=== PATIENT | female | born 1965 | race Caucasian/White ===

== ENCOUNTER 2020-05-18 20:58 | Emergency (ER) | payer MEDICARE, OTHER, SELFPAY ==
[2020-05-18 21:07] VITALS: BP 148/54; PULSE 67; RESP 17; TEMP 36.8; O2SAT 97; BMI 28.3
--- NOTE | 2020-05-18 21:14 | CTR_ITS ---
PROCEDURE INFORMATION: Exam: CT Head Without Contrast Exam date and time: 05/18/2020 9:19 PM Age: 54 years old Clinical indication: Injury or trauma; Injury history: Hit by horse; Initial encounter; Blunt trauma (contusions or hematomas); Additional info: Head injury TECHNIQUE: Imaging protocol: Computed tomography of the head without contrast. Radiation optimization: All CT scans at this facility use at least one of these dose optimization techniques: automated exposure control; mA and/or kV adjustment per patient size (includes targeted exams where dose is matched to clinical indication); or iterative reconstruction. COMPARISON: No relevant prior studies available. RADIATION DOSE METRICS: Total DLP (mGy-cm): 8246.46 FINDINGS: Brain: No visible acute intracranial pathologic process, trauma, or hemorrhage. No visible generalized edema. Unremarkable white matter. No mass effect. Ventricles: Normal. No ventriculomegaly. Bones/joints: Unremarkable. No acute fracture. Sinuses: Visualized sinuses are unremarkable. No fluid levels. Mastoid air cells: Visualized mastoid air cells are well aerated. Soft tissues: Unremarkable. CT/CT head wo con* [id number] IMPRESSION: No acute intracranial abnormality. Radiation Dose CTDIVOL = (mGy): DLP = 8246.46 (mGy-cm)
--- NOTE | 2020-05-18 21:17 | W.ED.HEATRA ---
HPI - Head Injury General: Chief complaint: Head Injury Stated complaint: hit in head Time Seen by Provider: 05/18/20 21:05 Source: patient Mode of arrival: ambulatory Limitations: no limitations History of Present Illness: HPI Narrative: 54-year-old female who presents after being kicked in the head. Patient states she is leaning her head against a panel in her horse spooked and actually kicked the panel and that struck her in the head. States this happened roughly an hour ago. She denies any loss conscious but does have a severe headache. Patient denies any pain elsewhere. Denies any neck pain. Denies any vomiting. She rates her pain a 8 out of 10. MD Complaint: head injury Onset (ago): hour(s) Associated symptoms: Deny nausea, neck pain or vomiting Review of Systems Const: Denies: fever(s), chills, body aches or change in appetite Eyes: Denies: blurry vision or eye discomfort ENMT: Denies: throat pain or dental pain Card: Denies: chest pain Resp: Denies: dyspnea GI: Denies: abdominal pain, nausea, vomiting or diarrhea : Denies: dysuria Musc: Denies: neck pain or back pain Skin/Breast: Denies: rash Neuro: Reports: headache(s) Psych: Denies: depression [place]/Lymph: Denies: easy bruising All/Imm: Denies: urticaria Physical Exam Const: COMMON NORMALS: no acute distress, patient oriented x3 and healthy appearing HENMT: COMMON NORMALS: normocephalic HEAD & SCALP: normocephalic OTHER: contusion to forehead Eye: COMMON NORMALS: Equal, round and reactive pupils present and EOMs intact bilaterally PUPIL: Yes Equal, round and reactive pupils present Neck/C-Spine: COMMON NORMALS: full ROM and supple Chest: COMMONS NORMALS: normal inspection of the chest and normal palpation of entire chest wall Resp: COMMON NORMALS: normal respiratory effort, No retractions, No use of accessory muscles and clear to auscultation bilaterally AUSCULTATION: clear to auscultation bilaterally Cardio: COMMON NORMALS: regular rate, regular rhythm and No murmurs present (Cardio) RATE: regular rate RHYTHM: regular rhythm GI: COMMON NORMALS: Normal to inspection, nondistended, normoactive bowel sounds present, Soft to palpation, non-tender and no masses PALPATION: Yes Soft to palpation Extremity: COMMON NORMALS: normal to inspection and full ROM Neuro: COMMON NORMALS: patient oriented x3, moves all extremities and no focal motor deficits Psych: COMMON NORMALS: mental status grossly normal, Normal thought process present and cooperative THOUGHT PROCESS: Normal thought process present Skin: COMMON NORMALS: no rashes or lesions noted and no wounds GENERAL SKIN EXAM: no rashes or lesions noted Course Vital Signs: Vital signs: Vital Signs Temperature 98.3 F 05/18/20 21:07 Pulse Rate 67 05/18/20 21:07 Respiratory Rate 17 05/18/20 21:07 Blood Pressure 148/54 05/18/20 21:07 Pulse Oximetry 97 05/18/20 21:07 MDM - Head Injury MDM Narrative: Medical decision making narrative: Patient presents with a closed head injury. Patient is well-appearing here and head CT and C-spine CT are negative. Patient is stable for discharge. She is to follow-up with primary care doctor in 3 to 5 days and return if worsening. Imaging Data^: CT Head: Radiologist's impression: [address] [address] [address] Scan Report Signed Patient: Olga Lidia Villagomez Unit #: [id number] : 1965 Age/Sex: 54 / F ADM Date: 05/18/20 Loc: ER Room/Bed: Attending Dr: Ordering Provider/Ordering MD: Philomena Smith MD Date of Service: 05/18/20 Procedure(s): CT head wo con* [id number] Accession Number(s): [id number] Report Number: [id number] PROCEDURE INFORMATION: Exam: CT Head Without Contrast Exam date and time: 05/18/2020 9:19 PM Age: 54 years old Clinical indication: Injury or trauma; Injury history: Hit by horse; Initial encounter; Blunt trauma (contusions or hematomas); Additional info: Head injury TECHNIQUE: Imaging protocol: Computed tomography of the head without contrast. Radiation optimization: All CT scans at this facility use at least one of these dose optimization techniques: automated exposure control; mA and/or kV adjustment per patient size (includes targeted exams where dose is matched to clinical indication); or iterative reconstruction. COMPARISON: No relevant prior studies available. RADIATION DOSE METRICS: Total DLP (mGy-cm): 8246.46 FINDINGS: Brain: No visible acute intracranial pathologic process, trauma, or hemorrhage. No visible generalized edema. Unremarkable white matter. No mass effect. Ventricles: Normal. No ventriculomegaly. Bones/joints: Unremarkable. No acute fracture. Sinuses: Visualized sinuses are unremarkable. No fluid levels. Mastoid air cells: Visualized mastoid air cells are well aerated. Soft tissues: Unremarkable. CT/CT head wo con* [id number] IMPRESSION: No acute intracranial abnormality. Other CT: Radiologist's impression: [address] [place] [address] CT Scan Report Signed Patient: Olga Lidia Villagomez Unit #: [id number] : 1965 Age/Sex: 54 / F ADM Date: 05/18/20 Loc: ER Room/Bed: Attending Dr: Ordering Provider/Ordering MD: Philomena Smith MD Date of Service: 05/18/20 Procedure(s): CT cervical spin wo con* [id number] Accession Number(s): [id number] Report Number: [id number] PROCEDURE INFORMATION: Exam: CT Cervical Spine Without Contrast Exam date and time: 05/18/2020 10:00 PM Age: 54 years old Clinical indication: Injury or trauma; Injury history: Hit by horse; Additional info: Neck pain TECHNIQUE: Imaging protocol: Computed tomography images of the cervical spine without contrast. Radiation optimization: All CT scans at this facility use at least one of these dose optimization techniques: automated exposure control; mA and/or kV adjustment per patient size (includes targeted exams where dose is matched to clinical indication); or iterative reconstruction. COMPARISON: No relevant prior studies available. RADIATION DOSE METRICS: Total DLP (mGy-cm): 807.09 FINDINGS: Vertebrae: No visible fracture, subluxation, or dislocation. Mild reversal normal cervical lordosis. Discs/Spinal canal/Neural foramina: Mild degenerative disc disease with mild disc space height loss and associated mild spondylosis deformans C5/C6 and C6/C7. Right neural foraminal narrowing C5/C6 secondary to a right paramedian focal annular disc bulge osteophyte complex. Soft tissues: Unremarkable. Dental: Incidental note of numerous missing teeth. Dental caries. Lungs: Mild centrilobular emphysema. CT/CT cervical spin wo con* [id number] IMPRESSION: No visible fracture, subluxation, or dislocation. Discharge Plan Discharge Patient Disposition: Home Clinical Impression: Closed head injury Qualifiers: Encounter type: initial encounter Qualified Code(s): S09.90XA - Unspecified injury of head, initial encounter Condition: Stable Prescriptions: New Naprosyn 500 mg tablet 500 mg PO BID PRN (Reason: pain) Qty: 20 RF: 0 No Action Advair HFA See Rx Instructions .ROUTE .COMPLEX RF: 0 prazosin 1 mg capsule 1 mg PO BEDTIME RF: 0 buspirone 30 mg tablet 30 mg PO DAILY RF: 0 trazodone 300 mg tablet 300 mg PO BEDTIME RF: 0 ProAir HFA 90 mcg/actuation Hfa Aerosol Inhaler See Rx Instructions .ROUTE .COMPLEX RF: 0 Keppra See Rx Instructions .ROUTE .COMPLEX RF: 0 Symbicort See Rx Instructions .ROUTE .COMPLEX RF: 0 sertraline See Rx Instructions .ROUTE .COMPLEX RF: 0 tizanidine See Rx Instructions .ROUTE .COMPLEX RF: 0 Discharge Orders: Discharge Order (Routine); Ordered 05/18/20 Ordered By: Philomena Smith Discharge Diet: Advance as tolerated Discharge Activity: Resume usual activity Patient Instructions: Minor Head Injury (ED) Coding Level of Care Code ED Medical Records Coordinator for Salvador Hanna Exam Comprehensive
[2020-05-18] MEDS: HYDROcodone-acetaminophen 7.5-325 mg Tablet 1 TAB PO (21:26)
--- NOTE | 2020-05-18 22:00 | CTR_ITS ---
PROCEDURE INFORMATION: Exam: CT Cervical Spine Without Contrast Exam date and time: 05/18/2020 10:00 PM Age: 54 years old Clinical indication: Injury or trauma; Injury history: Hit by horse; Additional info: Neck pain TECHNIQUE: Imaging protocol: Computed tomography images of the cervical spine without contrast. Radiation optimization: All CT scans at this facility use at least one of these dose optimization techniques: automated exposure control; mA and/or kV adjustment per patient size (includes targeted exams where dose is matched to clinical indication); or iterative reconstruction. COMPARISON: No relevant prior studies available. RADIATION DOSE METRICS: Total DLP (mGy-cm): 807.09 FINDINGS: Vertebrae: No visible fracture, subluxation, or dislocation. Mild reversal normal cervical lordosis. Discs/Spinal canal/Neural foramina: Mild degenerative disc disease with mild disc space height loss and associated mild spondylosis deformans C5/C6 and C6/C7. Right neural foraminal narrowing C5/C6 secondary to a right paramedian focal annular disc bulge osteophyte complex. Soft tissues: Unremarkable. Dental: Incidental note of numerous missing teeth. Dental caries. Lungs: Mild centrilobular emphysema. CT/CT cervical spin wo con* [id number] IMPRESSION: No visible fracture, subluxation, or dislocation. Radiation Dose CTDIVOL = (mGy): DLP = 807.09 (mGy-cm)
[2020-05-18 22:32] VITALS: BP 109/72; PULSE 61; RESP 16; O2SAT 97
== END 2020-05-18 22:44 | disposition home or self-care (01) ==
PROVIDERS: Emergency Provider Emergency Medicine
DX: S09.8XXA Other specified injuries of head, initial encounter (principal); W55.12XA Struck by horse, initial encounter
CPT/HCPCS: 12345; 70450; 72125; 99281; 99283

== ENCOUNTER → 2020-05-24 07:49 | Outpatient (BNVA) | payer MEDICARE, OTHER, SELFPAY | PROVIDERS: Visit Provider Specialist | DX: G40.209 Localization-related (focal) (partial) symptomatic epilepsy and epileptic syndromes with complex partial seizures, not intractable, without status epilepticus (principal); G43.711 Chronic migraine without aura, intractable, with status migrainosus; F43.10 Post-traumatic stress disorder, unspecified; F17.210 Nicotine dependence, cigarettes, uncomplicated | CPT/HCPCS: 99204 ==

== ENCOUNTER 2020-06-08 10:02 | Outpatient (CLI) | payer MEDICARE, OTHER, SELFPAY ==
--- NOTE | 2020-06-08 11:00 | CT_ITS ---
WS: [id number] CT CHEST WITHOUT INTRAVENOUS CONTRAST HISTORY: Multiple lung nodules in her previous scans TECHNIQUE: Contiguous 5 mm axial imaging performed on the thorax. Coronal and sagittal reformats are submitted. All CT scans at [facility] use at least one of these dose optimization techniq ues: automated exposure control; mA and/or kV adjustment per patient size (includes targeted exams wh ere dose is matched to clinical indication); or iterative reconstruction. CONTRAST: None DLP: 789.05 mGycm COMPARISON: None available. Lungs and central airway: Chronic emphysema with mild haziness and interstitial thickening bilaterall y with benign granulomata. Dependent changes posteriorly at the lung bases. Poor inspiration resultin g in crowding of the lungs. Pleural-based 5 mm nodule LEFT lower lobe. Smaller pleural-based nodule i n the RIGHT middle lobe measures 3 mm. Additional 4 mm nodule RIGHT middle lobe, image 19 of series 3 . Pleura: Normal. No pleural effusion. Heart and pericardium: Mild cardiomegaly with no pericardial effusion. Mediastinum and joel: No mediastinum or hilar adenopathy. Vessels: Normal size aortic and pulmonary artery. No coronary artery calcifications. Chest wall and lower neck: No soft tissue masses. Upper abdomen: Prior cholecystectomy. Osseous structures: No destructive process. CT/CT chest wo con [id number] IMPRESSION: 1. Bilateral pulmonary nodules as above. Recommend [address] follow-up . 2. Moderate chronic emphysema. 3. Prior cholecystectomy.
== END 2020-06-08 10:03 | disposition home or self-care (01) ==
LOC: RADWPI 10:07
PROVIDERS: PCP Physician Assistant; Visit Provider Internal Medicine Pulmonary Disease
DX: J44.9 Chronic obstructive pulmonary disease, unspecified (principal); R91.8 Other nonspecific abnormal finding of lung field
CPT/HCPCS: 71250

== ENCOUNTER → 2020-06-10 11:03 | Outpatient (BNVA) | payer MEDICARE, OTHER, SELFPAY | PROVIDERS: PCP Physician Assistant; Visit Provider Internal Medicine | DX: M25.50 Pain in unspecified joint (principal); Z79.899 Other long term (current) drug therapy; Z11.59 Encounter for screening for other viral diseases; Z11.1 Encounter for screening for respiratory tuberculosis; R76.8 Other specified abnormal immunological findings in serum; R53.83 Other fatigue; F17.210 Nicotine dependence, cigarettes, uncomplicated | CPT/HCPCS: 99204 ==

== ENCOUNTER 2020-06-10 13:08 | Outpatient (CLI) | payer MEDICARE, OTHER, SELFPAY ==
--- NOTE | 2020-06-10 13:13 | XR_ITS ---
WS: [id number] LEFT HAND: 2 VIEW(S) TECHNIQUE: PA and lateral. HISTORY: hand pain COMPARISON: None available. No acute fracture or dislocation. Very mild interphalangeal joint space narrowing. Possible small ear ly erosion at the third PIP joint.No metacarpal head erosions. No soft tissue abnormality. XR/XR hand LT 2V [id number] IMPRESSION: Possible small early erosion third PIP joint. Otherwise negative.
--- NOTE | 2020-06-10 13:13 | XR_ITS ---
WS: [id number] RIGHT HAND: 2 VIEW(S) TECHNIQUE: PA and lateral. HISTORY: hand pain COMPARISON: None available. Minimal interphalangeal joint space narrowing. Small subchondral cystic changes or erosions at the fo urth DIP joint. No metacarpal head erosion. No soft tissue abnormality. XR/XR hand RT 2V [id number] IMPRESSION: Small subchondral cystic changes at the fourth DIP joint.
== END 2020-06-10 13:09 | disposition home or self-care (01) ==
LOC: WPI 13:13
PROVIDERS: PCP Physician Assistant; Visit Provider Internal Medicine
DX: M79.641 Pain in right hand (principal); M79.642 Pain in left hand
CPT/HCPCS: 73120

== ENCOUNTER 2020-06-22 10:43 | Outpatient (CLI) | payer MEDICARE, OTHER, SELFPAY ==
[2020-06-22 11:28] LABS: Basophils # 0.1 10^3/uL (0.0-0.1); Basophils % 1.3 %; Eosinophils # 0.1 10^3/uL (0.0-0.8); Eosinophils % 1.4 %; Hematocrit 44.4 % (37.0-47.0); Hemoglobin 14.7 g/dL (11.5-15.3); Lymphocytes # 1.8 10^3/uL (0.8-4.8); Lymphocytes % 28.1 %; Mean Corpuscular HGB Conc 33.1 g/dL (30.0-36.0); Mean Corpuscular Hemoglobin 30.9 pg (28.0-34.0); Mean Corpuscular Volume 93.3 fL (81-99); Mean Platelet Volume 12.8 fL (7.4-10.4); Monocytes # 0.3 10^3/uL (0.2-0.9); Neutrophils # 4.01 10^3/uL (1.8-7.7); Nucleated Red Blood Cells % 0 %; Platelet Count 126 10^3/cmm (130-400); Red Blood Count 4.76 10^6/uL (4.1-5.3); Red Cell Distribution Width 12.4 % (12.1-15.1); White Blood Count 6.3 10^3/uL (4.0-10.0)
[2020-06-22 11:52] LABS: Alanine Aminotransferase 6 U/L (0-33); Albumin Level 4.2 g/dL (3.5-5.2); Alkaline Phosphatase 98 IU/L (35-105); Anion Gap 15.2 (5-19); Aspartate Amino Transferase 9 U/L (0-32); Blood Urea Nitrogen 8 mg/dL (6-20); C Reactive Protein 3.9 mg/L (0.0-4.9); Calcium 9.1 mg/dL (8.5-10.5); Carbon Dioxide 25 mmol/L (22-29); Chloride 104 mmol/L (98-107); Creatine Phosphokinase 40 U/L (26-192); Globulin 3.2 g/dL (1.3-4.6); Glucose 118 mg/dL (65-115); Osmolality Calculated 291 mOsm/kg (285-295); Potassium 3.2 mmol/L (3.5-5.1); Sodium 141 mmol/L (136-145); Total Bilirubin 0.2 mg/dL (0.15-1.2); Total Protein 7.4 g/dL (6.6-8.7)
[2020-06-22 12:24] LABS: Erythrocyte Sedimentation Rate 21 mm/hr (0-15)
[2020-06-22 12:54] LABS: Hepatitis B Core AB, Total Non-Reactive (Nonreactive); Hepatitis B Surface Antigen Non-Reactive (Nonreactive); Hepatitis C Virus Antibody Non-Reactive (Nonreactive)
[2020-06-24 12:33] LABS: Quantiferon Mitogen 5.71 IU/mL; Quantiferon Nil 0.01 IU/mL; Quantiferon TB Gold NEGATIVE (NEGATIVE)
== END 2020-06-22 10:44 | disposition home or self-care (01) ==
LOC: LAB 10:54
PROVIDERS: Internal Medicine; PCP Physician Assistant; Visit Provider Specialist
DX: R76.8 Other specified abnormal immunological findings in serum (principal)
CPT/HCPCS: 36415; 80053; 82550; 85025; 85651; 86140; 86480; 86704; 86803; 87340

== ENCOUNTER 2020-06-22 10:43 | Outpatient (CLI) | payer MEDICARE, OTHER, SELFPAY ==
--- NOTE | 2020-06-22 11:08 | MM_ITS ---
WS: [id number] BILATERAL DIGITAL SCREENING MAMMOGRAPHY WITH CAD CLINICAL INFORMATION: SCREEN HISTORY: Screening mammogram. No current complaints. COMPARISON: None. TECHNIQUE: Bilateral CC and MLO views. FINDINGS: The breasts are composed of heterogeneous fibroglandular density tissue, which can limit the detectio n of small underlying mass lesions. Dense breast tissue upper outer quadrants both breasts. No suspic ious mass, asymmetry, calcifications, or architectural distortion. No evidence of malignancy. MM/[place] [id number] IMPRESSION: BI-RADS: 2-Benign FOLLOW UP: 1 Year Follow-up Recommend return to annual screening mammography.
== END 2020-06-22 10:44 | disposition home or self-care (01) ==
LOC: RADSHAW 11:00
PROVIDERS: PCP Physician Assistant; Visit Provider Physician Assistant
DX: Z12.31 Encounter for screening mammogram for malignant neoplasm of breast (principal)
CPT/HCPCS: 77067

== ENCOUNTER 2020-06-22 10:55 | Outpatient (CLI) | payer MEDICARE, OTHER, SELFPAY ==
[2020-06-25 12:43] LABS: Levetiracetam Keppra <2.0 mcg/mL
== END 2020-06-22 10:56 | disposition home or self-care (01) ==
LOC: LAB 10:58
PROVIDERS: Specialist; PCP Physician Assistant; Visit Provider Internal Medicine
DX: Z79.899 Other long term (current) drug therapy (principal)
CPT/HCPCS: 80177

== ENCOUNTER → 2020-07-15 09:43 | Outpatient (BNVA) | payer MEDICARE, OTHER, SELFPAY | PROVIDERS: PCP Physician Assistant; Visit Provider Internal Medicine | DX: M25.50 Pain in unspecified joint (principal); R76.8 Other specified abnormal immunological findings in serum; D86.9 Sarcoidosis, unspecified; M35.1 Other overlap syndromes; R53.83 Other fatigue; D69.6 Thrombocytopenia, unspecified; F17.210 Nicotine dependence, cigarettes, uncomplicated; M17.0 Bilateral primary osteoarthritis of knee | CPT/HCPCS: 36415; 73560; 82024; 82533; 82550; 82728; 83540; 99214 ==

== ENCOUNTER 2020-07-15 10:38 | Outpatient (CLI) | payer MEDICARE, OTHER, SELFPAY ==
--- NOTE | 2020-07-15 10:44 | XR_ITS ---
WS: [id number] KNEE LEFT TECHNIQUE: 2 views of the left knee CLINICAL INFORMATION: knee pain COMPARISON: None. FINDINGS: Normal anatomic alignment. Soft tissue edema. No evidence of suprapatellar effusion. No acute fractur es. XR/XR knee LT 1-2V [id number] IMPRESSION: Mild degenerative arthritis. No acute fractures.
--- NOTE | 2020-07-15 10:44 | XR_ITS ---
WS: [id number] KNEE RIGHT TECHNIQUE: 2 views of the right knee CLINICAL INFORMATION: knee pain COMPARISON: None. FINDINGS: Normal anatomic alignment. Mild medial compartment joint space narrowing. Mild soft tissue edema. No significant suprapatellar effusion. No acute fractures. XR/XR knee RT 1-2V [id number] IMPRESSION: Mild degenerative arthritis. No acute fractures.
== END 2020-07-15 10:39 | disposition home or self-care (01) ==
LOC: RADWPI 10:43
PROVIDERS: PCP Physician Assistant; Visit Provider Internal Medicine
DX: M17.0 Bilateral primary osteoarthritis of knee (principal); M25.50 Pain in unspecified joint; R76.8 Other specified abnormal immunological findings in serum; D86.9 Sarcoidosis, unspecified
CPT/HCPCS: 73560; 82024; 82533; 82550; 82728; 83540

== ENCOUNTER 2020-08-18 18:52 | Emergency (ER) | payer MEDICARE, OTHER, SELFPAY ==
[2020-08-18 19:22] VITALS: BP 153/79; PULSE 81; RESP 18; TEMP 36.8; O2SAT 94; BMI 27.8
--- NOTE | 2020-08-18 19:37 | ED_ITS ---
HPI - Back Pain/Injury General: Chief Complaint: Back Pain/Injury Stated Complaint: back pain Time Seen by Provider: 08/18/20 19:32 Source: patient Mode of arrival: ambulatory Limitations: no limitations History of Present Illness: HPI Narrative: Olga Lidia is a very nice 54-year-old female who comes in complaining of low back pain for the past 2 days. Patient states that she was bending over to pick something up when she felt her back pull suddenly in both sides of her lower back. She felt her back tighten up and had pain radiate up and down both sides of her back. She states she can feel the pain go down into both buttock areas. At times she states she can feel like her toes were tingling but currently she denies any radiation of pain down her legs. Patient denies any fever, chills, nausea, vomiting, abdominal pain, loss of bowel or bladder control, saddle anesthesia or any other complaints. Patient states the pain is just in her lower back on both sides. She denies any fall or trauma to the area. She states the pain started when she bent over so far but otherwise denies any other pain. She states moving makes the pain worse. Resting helps make it better. She is been trying Tylenol and Motrin at home for the pain with mild improvement. Associated symptoms: Deny abdominal pain, chills, difficulty walking, dysuria, fatigue, fever(s), hematuria, nausea, syncope, urinary urgency or vomiting Review of Systems Const: Denies: fever(s), chills, body aches, fatigue, malaise or diaphoresis Eyes: Denies: change in vision, blurry vision, photophobia, eye discomfort, eye discharge, eye redness or yellow eyes ENMT: Denies: throat pain, odynophagia, hoarseness, swelling of lips/tongue, ear or mastoid pain, ear discharge, change in hearing or nasal discharge Card: Denies: chest pain, palpitations, irregular heart rhythm, edema, l ightheadedness, syncope, pre-syncope, dyspnea on exertion or orthopnea Resp: Denies: dyspnea, productive cough, non-productive cough, wheezing, h emoptysis or chest congestion GI: Denies: abdominal pain, nausea, vomiting, hematemesis, coffee ground emesis, heartburn, diarrhea, constipation, GI cramping, hematochezia or melena : Denies: flank pain, dysuria, urinary frequency, urinary urgency or hematuria Musc: Reports: back pain; Denies: neck pain, extremity pain, extremity swelling, joint pain, joint swelling, joint redness, joint warmth or joint stiffness Skin/Breast: Denies: rash, pruritus, erythema, skin pain or skin tenderness Neuro: Denies: headache(s), numbness in extremities, weakness in extremities, sensory changes, lack of coordination, difficulty walking, dizziness, vertigo, confusion, Slurred speech present or seizure-like activity [place]/Lymph: Denies: easy bruising, easy bleeding, petechiae, purpura or enlarged lymph nodes All/Imm: Denies: urticaria, throat swelling, tongue swelling, facial swelling or acute wheezing PFSH ED PFSH: Medical History SUSY positive Arthralgia Fatigue Family History Mother Suicide Father Rheumatoid arthritis Social History Smoking and tobacco status: current every day smoker cigarettes [ Other cigarette details: Hx of 1 PPD x 40 Years ] Quit status (tobacco): considering quitting Second hand smoke exposure: Yes Smoking risk assessment/counseling performed?: Yes Alcohol intake: never Lives independently: Yes Household members: spouse Marital status: Current occupational status: disabled History of recent travel: No Current gender identity: Female Physical Exam Const: COMMON NORMALS: no acute distress, patient oriented x3, no limitations and alert GENERAL APPEARANCE: cooperative HENMT: COMMON NORMALS: normocephalic, atraumatic, external ears normal, EAC's normal and Normal external nose present HEAD & SCALP: normal to inspection, normocephalic and atraumatic FACE & SINUS: normal facial exam and face symmetric NOSE: Normal external nose present and Normal nares present EXTERNAL EAR: Yes external ears normal EXTERNAL AUDITORY CANAL: EAC's normal MOUTH: Normal oral and palatal mucosa present, lip normal and tongue normal Eye: COMMON NORMALS: Equal, round and reactive pupils present and conjunctivae normal GENERAL EYE: appearance normal, both eyes and all related structures ALIGNMENT: Yes alignment normal PERIORBITAL: periorbital findings normal EYELID: eyelids normal CONJUNCTIVA: Yes conjunctivae normal SCLERA: sclerae normal PUPIL: Yes Equal, round and reactive pupils present Neck/C-Spine: COMMON NORMALS: full ROM, no lymphadenopathy, supple, no meningeal signs and no JVD GENERAL: Yes normal visual inspection and Yes trachea midline Chest: COMMONS NORMALS: normal inspection of the chest and normal palpation of entire chest wall Resp: COMMON NORMALS: normal respiratory effort, No retractions, No use of accessory muscles and clear to auscultation bilaterally EFFORT & INSPECTION: Yes able to speak in complete sentences and Yes symmetric chest movement AUSCULTATION: clear to auscultation bilaterally, no crackles, no rales, no rhonchi and no wheezes Cardio: COMMON NORMALS: no JVD, regular rate, regular rhythm, S1 normal heart sound present and S2 normal heart sound present RATE: regular rate RHYTHM: regular rhythm HEART SOUNDS: S1 normal heart sound present, S2 normal heart sound present, no click, no gallops, no murmurs and no rubs GI: COMMON NORMALS: Soft to palpation and No hepatosplenomegaly present PALPATION: Yes Soft to palpation, No Tenderness to palpation present (GI), No Guarding due to palpation present (GI), No Rigid due to palpation, Yes No hepatosplenomegaly present, No Hernia present, No Palpable mass present and No Pulsatile mass present : COMMON NORMALS: Yes no CVA tenderness BLADDER/KIDNEY EXAM: Yes no CVA tenderness EXTERNAL FEMALE EXAM: No Hernia present Back/Pelvis: COMMON NORMALS: no CVA tenderness THORACIC SPINE/UPPER BACK: Yes normal to inspection LUMBAR SPINE/LOWER BACK: Yes ROM limited, Yes pain with ROM, No lumbar spinal tenderness, Yes paraspinal muscle tenderness and Yes paraspinal muscle spasm Extremity: COMMON NORMALS: normal to inspection, full ROM, capillary refill normal, no joint enlargement, no clubbing, cyanosis or edema and no calf tenderness Neuro: COMMON NORMALS: patient oriented x3, CN's II-XII intact bilaterally, moves all extremities, no focal motor deficits and no sensory deficits noted SENSORIUM/ORIENTATION: Yes alert MENINGEAL SIGNS: Yes no meningeal signs SPEECH: speech normal MOTOR EXAM: 5/5 motor strength present throughout DEEP TENDON REFLEXES: Right patellar reflex intensity grade: 2+, Left patellar reflex intensity grade: 2+, Right ankle reflex intensity grade: 2+ and Left ankle reflex intensity grade: 2+ PLANTAR REFLEX: downgoing: bilateral Psych: COMMON NORMALS: mental status grossly normal, Normal thought process present, cooperative, normal affect, speech normal and activity/motor behavior normal SPEECH: Yes normal speech THOUGHT PROCESS: Normal thought process present Skin: COMMON NORMALS: no rashes or lesions noted, turgor normal, no jaundice, no petechiae and no mottling GENERAL SKIN EXAM: no rashes or lesions noted and turgor normal Course Vital Signs: Vital signs: Vital Signs Temperature 98.2 F 08/18/20 19:22 Pulse Rate 76 08/18/20 20:15 Respiratory Rate 18 08/18/20 19:22 Blood Pressure 140/68 08/18/20 20:15 Pulse Oximetry 96 08/18/20 20:15 MDM - Back Pain/Injury MDM Narrative: Medical decision making narrative: Olga Lidia is a nice 54-year-old female who comes in complaining of low back pain. Symptoms started after she bent over and was trying to pick something up. The pain is located in bilateral paraspinal muscles of her lumbar spine. She has no localized spinal tenderness and the patient had a normal muscular and neurological exam. She was able to ambulate here without any difficulty. She denies any abdominal pain, fever, injection drug use, loss of bowel or bladder control, saddle anesthesia or any other high risk red flag type finding for her pain. I see no evidence of CRAFTI such as cauda equina syndrome, ruptured disc, AAA, fracture, tumor or infection. Patient's medicine list has not been updated but when asked specifically she denies being on any immunosuppressive medications. She states she has been on medicine in the past but is adamant she is not on anything for her rheumatoid arthritis at this time other than hydroxychloroquine. I have offered to do a complete work-up including labs and imaging of her spine but the patient declines. At this time I see no red flags to suggest a more occult process. The patient's history and exam suggest strain of the lumbar spine. Patient understands she is welcome to change her mind and to have a complete work-up but at this time she declines any further evaluation and care and only wants medicated for her pain. Differential Diagnosis: Differential diagnosis back pain/injury: Likely lumbar radiculopathy, sciatica, strain of lumbar region, renal colic, pyelonephritis, thoracic back pain, AAA and discitis Discharge Plan Discharge Patient Disposition: Home Clinical Impression: Strain of lumbar region Qualifiers: Encounter type: initial encounter Qualified Code(s): S39.012A - Strain of mu scle, fascia and tendon of lower back, initial encounter Condition: Stable Prescriptions: New cyclobenzaprine 10 mg tablet 10 mg PO TID PRN (Reason: muscle spasm) Qty: 30 RF: 0 [place] 5-325 mg tablet 1 tab PO Q6H PRN (Reason: pain) 5 Days Qty: 8 RF: 0 No Action sertraline 100 mg tablet 200 mg PO DAILY RF: 0 clonazepam 0.5 mg tablet 0.5 mg PO DAILY RF: 0 dihydroergotamine 0.5 mg/pump act. (4 mg/mL) spray,non-aerosol 1 spray INTRANASAL Q15M RF: 0 Trelegy Ellipta 100-62.5-25 mcg blister with device 1 inh INHALATION DAILY Qty: 60 RF: 3 hydroxychloroquine 200 mg tablet 200 mg PO BID Qty: 180 RF: 1 potassium chloride [Klor-Con M20] 20 mEq tablet,ER particles/crystals 40 meq PO DAILY 3 Days Qty: 6 RF: 0 galcanezumab-gnlm 120 mg/mL pen injector 120 mg SUBCUT .MONTHLY Qty: 1 RF: 4 levetiracetam [Keppra XR] 750 mg tablet extended release 24 hr 1,500 mg PO DAILY Qty: 180 RF: 1 trazodone 300 mg tablet 300 mg PO BEDTIME RF: 0 Naprosyn 500 mg tablet 500 mg PO BID PRN (Reason: pain) Qty: 20 RF: 0 buspirone 30 mg tablet 30 mg PO BID RF: 0 prazosin 1 mg capsule 3 mg PO BEDTIME RF: 0 Discharge Orders: Discharge Order (Routine); Ordered 08/18/20 Ordered By: Martha Christopher Referrals: Marie Torres PA [Primary Care Provider] - 1-3 days Discharge Diet: Advance as tolerated Discharge Activity: Increase activity as tolerated Patient Instructions: Low Back Strain (ED) Activity Restrictions/Additional Instructions: Please return to the ER immediately for any of the signs or symptoms listed on your discharge instruction sheets, worsening/changing of your symptoms, you are not getting better as quickly as expected, or for ANY other cause or concerns. Return to the ER for increased pain, new onset of abdominal pain, fever, vomiting, loss of bowel or bladder control, numbness in your groin, weakness in your legs, or for any other cause for concern. Coding Level of Care Code ED Concrete Block Mason for Chg Fwd Exam Comprehensive
[2020-08-18] MEDS: HYDROcodone-acetaminophen 5-325 mg Tablet 1 TAB PO (19:48)
[2020-08-18] MEDS: cyclobenzaprine 10 mg Tablet PO (20:11)
[2020-08-18 20:15] VITALS: BP 140/68; PULSE 76; O2SAT 96
== END 2020-08-18 20:15 | disposition home or self-care (01) ==
PROVIDERS: Emergency Provider Emergency Medicine; PCP Physician Assistant
DX: S39.012A Strain of muscle, fascia and tendon of lower back, initial encounter (principal); F17.210 Nicotine dependence, cigarettes, uncomplicated; X50.1XXA Overexertion from prolonged static or awkward postures, initial encounter
CPT/HCPCS: 12345; 99281; 99283

== ENCOUNTER 2020-09-24 12:57 | Emergency (ER) | payer MEDICARE, OTHER, SELFPAY ==
[2020-09-24 13:25] VITALS: BP 124/76; BP 141/88; PULSE 78; PULSE 79; RESP 14; RESP 18; TEMP 37; TEMP 37.2; O2SAT 96; O2SAT 97; BMI 26.5
--- NOTE | 2020-09-24 13:45 | ED_ITS ---
HPI - COVID General: Chief Complaint: COVID symptoms Stated Complaint: f/n/v fatigue covid symptoms Time Seen by Provider: 09/24/20 13:42 Source: patient Mode of arrival: ambulatory Triage information: Has fever, cough or shortness of breath . No known COVID + exposure last 14 days History of Present Illness: HPI Narrative: 54-year-old female with a 3-day history of sore throat, malaise, fatigue, nausea, decreased appetite, cough. She has also had fever, subjective, body aches, and shortness of breath on exertion. She has a history of COPD. Does not require home oxygen. COVID 19 common symptoms: positive fever(s), chills, cough, dyspnea, fatigue, body aches, headache(s), loss of sense of smell and/or taste, throat pain, nasal congestion, nausea and vomiting; negative productive cough COVID 19 other sytmptoms: positive chest pain, pleuritic pain and lethargy; negative requiring oxygen or confusion Onset (ago): day(s) Pertinent comorbid conditions: COPD/respiratory disease Treatment prior to arrival: acetaminophen and ibuprofen COVID Results: SARS-CoV-2 Antigen (Rapid) Negative (Negative) 09/24/20 14:05 09/24/20 Review of Systems Const: Reports: fever(s), chills, body aches and fatigue ENMT: Reports: throat pain and nasal congestion Card: Reports: chest pain Resp: Reports: dyspnea; Denies: productive cough GI: Reports: nausea and vomiting Neuro: Reports: headache(s); Denies: confusion PFS ED PFSH: Medical History (Updated 09/24/20 @ 16:22 by Marcia Rivas MD) SUSY positive Arthralgia Fatigue Family History Mother Suicide Father Rheumatoid arthritis Social History Smoking and tobacco status: current every day smoker cigarettes [ Other cigarette details: Hx of 1 PPD x 40 Years ] Quit status (tobacco): considering quitting Second hand smoke exposure: Yes Smoking risk assessment/counseling performed?: Yes Alcohol intake: never Lives independently: Yes Household members: spouse Marital status: Current occupational status: disabled History of recent travel: No Current gender identity: Female Physical Exam Const: COMMON NORMALS: average body habitus, patient oriented x3, no limitations and alert GENERAL APPEARANCE: cooperative and comfortable; not in distress and not diaphoretic HENMT: COMMON NORMALS: normocephalic and atraumatic HEAD & SCALP: normocephalic and atraumatic FACE & SINUS: normal facial exam and face symmetric Eye: COMMON NORMALS: Equal, round and reactive pupils present, EOMs intact bilaterally and conjunctivae normal CONJUNCTIVA: Yes conjunctivae normal PUPIL: Yes Equal, round and reactive pupils present Lymph: LYMPHATIC: no lymphadenopathy noted Chest: CHEST: No abnormal inspection of the chest Resp: COMMON NORMALS: normal respiratory effort and No use of accessory muscles EFFORT & INSPECTION: Yes able to speak in complete sentences, No tachypneic, No respiratory distress, No pursed lip breathing, No stridor, No Actively coughing and No uses accessory muscles AUSCULTATION: crackles Laterality: bilateral Cardio: COMMON NORMALS: S1 normal heart sound present, S2 normal heart sound present and No murmurs present (Cardio) HEART SOUNDS: S1 normal heart sound present and S2 normal heart sound present GI: COMMON NORMALS: Soft to palpation and non-tender PALPATION: Yes Soft to palpation Extremity: COMMON NORMALS: normal to inspection, full ROM, capillary refill normal and no clubbing, cyanosis or edema GENERAL: Yes normal exam except as noted Neuro: COMMON NORMALS: patient oriented x3, moves all extremities and no focal motor deficits Course Vital Signs: Vital signs: Vital Signs Temperature 98.4 F 09/24/20 16:35 Pulse Rate 71 09/24/20 16:35 Respiratory Rate 18 09/24/20 16:35 Blood Pressure 130/87 09/24/20 16:35 Pulse Oximetry 96 09/24/20 16:35 MDM - COVID MDM Narrative: Medical decision making narrative: 54-year-old female with 3- day history of flulike symptoms, dry cough, fever, myalgias. Vital signs are stable, well-appearing. Not requiring any supplemental oxygen. Rapid Covid screen negative. Chest x-ray does not show any focal pneumonia or other acute abnormalities. No tachycardia or hypoxia to suggest acute pulmonary embolism. Will have her take a course of antibiotics and Zithromax for suspected COPD exacerbation/probable Covid. Patient did not tolerate the swab, so likely the test was falsely negative. Differential Diagnosis: Differential diagnosis: Likely COVID 19, influenza, other viral infection, pneumonia, copd exacerbation, pulmonary embolism and CHF exacerbation Lab Data: Attestation: I reviewed the patient's lab results. Labs: Lab Results 09/24/20 Range/Units 14:05 SARS-CoV-2 Ag (Rap id) Negative (Negative) COVID Results: SARS-CoV-2 Antigen (Rapid) Negative (Negative) 09/24/20 14:05 09/24/20 Discharge Plan Discharge Patient Disposition: Home Clinical Impression: URTI (acute upper respiratory infection), Suspected severe acute respiratory syndrome coronavirus 2 (SARS-CoV-2) infection, Acute exacerbation of chronic obstructive pulmonary disease COPD (chronic obstructive pulmonary disease) Qualifiers: COPD type: COPD with acute exacerbation Qualified Code(s): J44.1 - Chronic obstructive pulmonary disease with (acute) exacerbation Condition: Stable Prescriptions: New doxycycline hyclate 100 mg capsule 100 mg PO BID 10 Days Qty: 20 RF: 0 prednisone 20 mg tablet 40 mg PO DAILY 5 Days Qty: 10 RF: 0 No Action sertraline 100 mg tablet 200 mg PO DAILY@0800 RF: 0 clonazepam 0.5 mg tablet 0.5 mg PO DAILY@0800 RF: 0 dihydroergotamine 0.5 mg/pump act. (4 mg/mL) spray,non-aerosol 1 spray INTRANASAL Q15M RF: 0 trazodone 300 mg tablet 300 mg PO BEDTIME@2100 RF: 0 naproxen [Naprosyn] 500 mg tablet 500 mg PO BID PRN (Reason: pain) Qty: 20 RF: 0 buspirone 30 mg tablet 30 mg PO BID@0800,2100 RF: 0 prazosin 1 mg capsule 3 mg PO BEDTIME@2100 RF: 0 cyclobenzaprine 10 mg tablet 10 mg PO TID PRN (Reason: muscle spasm) Qty: 30 RF: 0 Tylenol 325 mg Tablet 325 - 650 mg PO QID PRN (Reason: Pain) RF: 0 Klor-Con M20 20 mEq tablet,ER particles/crystals 40 meq PO DAILY@0800 RF: 0 hydroxychloroquine 200 mg tablet 200 mg PO BID@0800,2100 RF: 0 Keppra XR 750 mg tablet extended release 24 hr 1,500 mg PO DAILY@0800 RF: 0 Trelegy Ellipta 100-62.5-25 mcg blister with device 1 inh INHALATION DAILY@0800 RF: 0 Discharge Orders: Discharge ED (Routine); Ordered 09/24/20 Ordered By: Marcia Rivas Referrals: Marie Torres PA [Primary Care Provider] - Discharge Diet: Usual diet Discharge Activity: Limit activity as instructed Patient Instructions: Bronchitis (Acute) - Adult, Upper Respiratory Infection - Adult Activity Restrictions/Additional Instructions: Follow-up with your primary care doctor in 3 to 5 days Stand Alone Forms: Work/School Release Coding Level of Care Code ED Pile Header for Chg Fwd Exam Comprehensive
[2020-09-24 14:03] VITALS: BP 124/76; PULSE 73; RESP 18; TEMP 37; O2SAT 96
--- NOTE | 2020-09-24 14:03 | PC.NURSE ---
Took 2 Tyenol before coming to the ER. Fever 101.2
[2020-09-24 14:31] LABS: SARS Covid-2 Antigen Negative (Negative)
[2020-09-24 15:20] VITALS: BP 124/83; PULSE 69; RESP 18; O2SAT 95
[2020-09-24 15:23] VITALS: O2SAT 95
--- NOTE | 2020-09-24 15:30 | XRR_ITS ---
PROCEDURE INFORMATION: Exam: XR Chest, 1 View Exam date and time: 09/24/2020 3:37 PM Age: 54 years old Clinical indication: Cough and fever and shortness of breath; Additional info: Cough, fever TECHNIQUE: Imaging protocol: XR of the chest Views: Frontal portable upright view of the chest. COMPARISON: CT chest con [id number] 06/08/2020 10:32 AM FINDINGS: Lungs: Mild left lateral basilar subsegmental atelectasis/scarring. The lungs are otherwise peripherally clear bilaterally. The pulmonary vasculature is normal. Pleural space: No pleural effusion. No pneumothorax. Heart/Mediastinum: The heart is normal in size and contour. Mediastinum: Stable. Bones/joints: Stable. Organs: The gallbladder is likely surgically absent, with metallic clips overlying the gallbladder fossa. XR/XR chest 1V portable [id number] IMPRESSION: 1. Mild left lateral basilar subsegmental atelectasis/scarring. Otherwise, no acute cardiopulmonary abnormality identified. 2. Prior cholecystectomy.
[2020-09-24 16:00] VITALS: BP 128/86; PULSE 89; RESP 18; O2SAT 96
[2020-09-24] MEDS: azithromycin 250 mg Tablet 500 MG PO (16:32)
[2020-09-24] MEDS: predniSONE 20 mg Tablet 60 MG PO (16:32)
[2020-09-24 16:35] VITALS: BP 130/87; PULSE 71; RESP 18; TEMP 36.9; O2SAT 96
== END 2020-09-24 17:04 | disposition home or self-care (01) ==
PROVIDERS: Emergency Provider Family Medicine; PCP Physician Assistant
DX: J06.9 Acute upper respiratory infection, unspecified (principal); Z20.828 Contact with and (suspected) exposure to other viral communicable diseases; J44.1 Chronic obstructive pulmonary disease with (acute) exacerbation; F17.210 Nicotine dependence, cigarettes, uncomplicated
CPT/HCPCS: 12345; 71045; 87426; 99283; J7512; Q0144

== ENCOUNTER 2020-10-06 12:20 | Outpatient (CLI) | payer MEDICARE, OTHER, SELFPAY ==
--- NOTE | 2020-10-06 12:45 | USCV_ITS ---
Olga Lidia Villagomez Age: 54 Gender: F : 1965 Exam Date: 10/06/2020 12:46 Ordering Phys: Abbe Gutierrez MD Technologist: Leonidas Keyes Exam Location: [facility] [place] Indication: pulmonary artery pressure BP: 126 / 72 HR: 58 Rhythm: Sinus Technical Quality: Adequate MEASUREMENTS (Male / Female) Normal Values 2D ECHO LV Diastolic Diameter PLAX 4.5 cm 4.2 - 5.9 / 3.9 - 5.3 cm LV Systolic Diameter PLAX 3.1 cm IVS Diastolic Thickness 1.2 cm 0.6 - 1.0 / 0.6 - 0.9 cm IVS Systolic Thickness 1.3 cm LVPW Diastolic Thickness 1.2 cm 0.6 - 1.0 / 0.6 - 0.9 cm LVPW Systolic Thickness 1.4 cm LVOT Diameter 2.0 cm LV Ejection Fraction 2D Teich 58.8 % LV Ejection Fraction MOD 2C 50.0 % LV Ejection Fraction 2C AL 50.9 % LA Diameter 3.5 cm LA Width 4.1 cm LA Height 4.5 cm RA Width 3.3 cm RA Height 4.8 cm M-MODE LV Diastolic Diameter MM 5.5 cm 4.2 - 5.9 / 3.9 - 5.3 cm LV Systolic Diameter MM 3.4 cm LV Ejection Fraction MM Teich 68.0 % IVS Diastolic Thickness MM 1.0 cm 0.6 - 1.0 / 0.6 - 0.9 cm IVS Systolic Thickness MM 1.0 cm LVPW Diastolic Thickness MM 1.0 cm 0.6 - 1.0 / 0.6 - 0.9 cm LVPW Systolic Thickness MM 1.6 cm RV Diastolic Diameter MM 1.3 cm Aortic Annulus Diameter 3.3 cm LA Ao Ratio MM 1.2 MV E Point Septal Separation 0.6 cm DOPPLER AV Peak Velocity 104.0 cm/s LVOT Peak Velocity 81.0 cm/s AV Area Cont Eq vti 2.5 cm squared AV Area Cont Eq pk 2.5 cm squared MV Area PHT 5.0 cm squared Mitral E to A Ratio 0.9 MV E' Velocity 36.5 cm/s Mitral E to MV E' Ratio 7.3 Mitral E to LV E' Lateral Ratio 7.3 Mitral E to LV E' Septal Ratio 7.3 TR Peak Velocity 175.3 cm/s TR Peak Gradient 12.3 mmHg TV Peak E Velocity 78.0 cm/s Right Atrial Pressure 3.0 mmHg Pulmonary Artery Systolic Pressu 15.3 mmHg PV Peak Velocity 72.0 cm/s RV Acceleration Time 0.1 s RV Ejection Time 0.4 s RV AcT/ET 0.2 FINDINGS Left Ventricle Normal left ventricular size, systolic function and mildly increased wall thickness, with no regional wall motion abnormalities. Left ventricular ejection fraction is estimated at 60 %. Normal diastolic function. Right Ventricle Normal right ventricular size and systolic function. Right ventricular systolic pressure 15.3 mmHg. Right Atrium Normal right atrial size. Left Atrium Normal left atrial size. Mitral Valve Structurally normal mitral valve. No mitral valve stenosis. Trace mitral valve regurgitation. Aortic Valve Structurally normal trileaflet aortic valve. No aortic valve stenosis. No aortic valve regurgitation. Tricuspid Valve Structurally normal tricuspid valve. Trace tricuspid valve regurgitation. Pulmonic Valve Structurally normal pulmonic valve. Trace pulmonary valve regurgitation. Pericardium No pericardial effusion. Aorta Normal sized aortic root. CONCLUSIONS 1. Normal left ventricular size, systolic function and mildly increased wall thickness, with no regional wall motion abnormalities. Left ventricular ejection fraction is estimated at 60 %. Normal diastolic function. 2. Normal right ventricular size and systolic function. 3. Normal sized aortic root. 4. No significant valvular abnormality. 5. Normal pulmonary artery pressure. 6. No prior similar studies to compare. Bianca Swann MD (Electronically Signed) Final Date: 10 October 2020 21:48 S
== END 2020-10-06 12:21 | disposition home or self-care (01) ==
LOC: RAD 12:23
PROVIDERS: PCP Physician Assistant; Visit Provider Internal Medicine Pulmonary Disease
DX: J84.9 Interstitial pulmonary disease, unspecified (principal)
CPT/HCPCS: 93306

== ENCOUNTER → 2020-11-24 11:06 | Outpatient (BNVA) | payer MEDICARE, OTHER, SELFPAY | PROVIDERS: PCP Physician Assistant; Visit Provider Specialist | DX: G40.209 Localization-related (focal) (partial) symptomatic epilepsy and epileptic syndromes with complex partial seizures, not intractable, without status epilepticus (principal); F17.210 Nicotine dependence, cigarettes, uncomplicated | CPT/HCPCS: G0463 ==

== ENCOUNTER → 2020-12-24 09:57 | Outpatient (BNVA) | payer MEDICARE, OTHER, SELFPAY | PROVIDERS: PCP Physician Assistant; Visit Provider Internal Medicine Pulmonary Disease | DX: J44.1 Chronic obstructive pulmonary disease with (acute) exacerbation (principal) | CPT/HCPCS: 87635 ==

== ENCOUNTER 2020-12-30 09:09 | Outpatient (CLI) | payer MEDICARE, OTHER, SELFPAY ==
[2020-12-30 09:47] VITALS: BP 110/80; BP 121/66
--- NOTE | 2020-12-30 09:48 | PFTS_ITS ---
Date of Study:12/30/20 Date of Dictation: 12/31/2020 MECHANICS: Forced vital capacity (FVC) is normal. Forced expiratory volume in one second (FEV1) is normal . FEV1/FVC is normal. No postbronchodilator study performed to assess response to bronchodilators. FLOW VOLUME LOOP: Slight sloping of end expiratory limb suggestive of small airway obstruction . LUNG VOLUMES: Not measured DIFFUSING CAPACITY FOR CARBON MONOXIDE: Mildly reduced 68% . INTERPRETATION: The spirometry is normal. No postbronchodilator study performed to assess response to bronchodilators. Flow volume loop suggestive of small airway obstruction. Lung volumes not measured. Gas transfer is mildly reduced. Please correlate clinically. MTDD
== END 2020-12-30 09:10 | disposition home or self-care (01) ==
LOC: RT 09:09
PROVIDERS: PCP Physician Assistant; Visit Provider Internal Medicine Pulmonary Disease
DX: J44.1 Chronic obstructive pulmonary disease with (acute) exacerbation (principal)
CPT/HCPCS: 94010; 94618; 94729

== ENCOUNTER → 2021-01-05 13:56 | Outpatient (BNVA) | payer MEDICARE, OTHER, SELFPAY | PROVIDERS: PCP Physician Assistant; Visit Provider Psychiatry & Neurology Psychiatry | DX: F43.12 Post-traumatic stress disorder, chronic (principal); F33.2 Major depressive disorder, recurrent severe without psychotic features; F41.1 Generalized anxiety disorder; F10.21 Alcohol dependence, in remission; F17.200 Nicotine dependence, unspecified, uncomplicated | CPT/HCPCS: 99204 ==

== ENCOUNTER → 2021-02-02 10:27 | Outpatient (BNVA) | payer MEDICARE, OTHER, SELFPAY | PROVIDERS: PCP Physician Assistant; Visit Provider Psychiatry & Neurology Psychiatry | DX: F41.1 Generalized anxiety disorder (principal); F33.2 Major depressive disorder, recurrent severe without psychotic features; F43.12 Post-traumatic stress disorder, chronic; F17.200 Nicotine dependence, unspecified, uncomplicated; F10.21 Alcohol dependence, in remission | CPT/HCPCS: 99214 ==

== ENCOUNTER 2021-03-18 10:02 | Outpatient (CLI) | payer MEDICARE, OTHER, SELFPAY ==
[2021-03-18 10:42] LABS: Basophils # 0.1 10^3/uL (0.0-0.1); Basophils % 1.4 %; Eosinophils # 0.1 10^3/uL (0.0-0.8); Eosinophils % 1.4 %; Hemoglobin 13.6 g/dL (11.5-15.3); Lymphocytes # 1.4 10^3/uL (0.8-4.8); Lymphocytes % 27.8 %; Mean Corpuscular Hemoglobin 31.6 pg (28.0-34.0); Mean Corpuscular Volume 92.8 fL (81-99); Monocytes # 0.4 10^3/uL (0.2-0.9); Monocytes % 6.9 %; Neutrophils # 3.23 10^3/uL (1.8-7.7); Neutrophils % 62.3 %; Nucleated Red Blood Cells % 0 %; Platelet Count 130 10^3/cmm (130-400); Red Blood Count 4.31 10^6/uL (4.1-5.3); Red Cell Distribution Width 12.5 % (12.1-15.1); White Blood Count 5.2 10^3/uL (4.0-10.0)
[2021-03-18 11:01] LABS: Alanine Aminotransferase < 5 U/L (0-33); Alkaline Phosphatase 80 IU/L (35-105); Anion Gap 13.7 (5-19); Aspartate Amino Transferase 9 U/L (0-32); Blood Urea Nitrogen 9 mg/dL (6-20); C Reactive Protein 3.5 mg/L (0.0-4.9); Calcium 8.8 mg/dL (8.5-10.5); Carbon Dioxide 23 mmol/L (22-29); Chloride 106 mmol/L (98-107); Globulin 2.5 g/dL (1.3-4.6); Glomerular Filtration Rate 104.2 mL/min (90-130); Glucose 96 mg/dL (65-115); Osmolality Calculated 287 mOsm/kg (285-295); Potassium 3.7 mmol/L (3.5-5.1); Sodium 139 mmol/L (136-145); Total Bilirubin 0.3 mg/dL (0.15-1.2); Total Protein 6.5 g/dL (6.6-8.7)
[2021-03-18 11:42] LABS: Erythrocyte Sedimentation Rate 18 mm/hr (0-15)
== END 2021-03-18 10:03 | disposition home or self-care (01) ==
LOC: LAB 10:17
PROVIDERS: PCP Physician Assistant; Visit Provider Internal Medicine
DX: R76.8 Other specified abnormal immunological findings in serum (principal); Z79.899 Other long term (current) drug therapy
CPT/HCPCS: 36415; 80053; 85025; 85651; 86140

== ENCOUNTER → 2021-03-23 10:15 | Outpatient (BNVA) | payer MEDICARE, OTHER, SELFPAY | PROVIDERS: PCP Physician Assistant; Visit Provider Internal Medicine | DX: M35.1 Other overlap syndromes (principal); M25.50 Pain in unspecified joint; R53.83 Other fatigue; Z79.899 Other long term (current) drug therapy; F17.210 Nicotine dependence, cigarettes, uncomplicated | CPT/HCPCS: 99213 ==

== ENCOUNTER → 2021-03-30 11:58 | Outpatient (BNVA) | payer MEDICARE, OTHER, SELFPAY | PROVIDERS: PCP Physician Assistant; Visit Provider Psychiatry & Neurology Psychiatry | DX: F41.1 Generalized anxiety disorder (principal); F33.2 Major depressive disorder, recurrent severe without psychotic features; F43.12 Post-traumatic stress disorder, chronic; F17.200 Nicotine dependence, unspecified, uncomplicated; F10.21 Alcohol dependence, in remission | CPT/HCPCS: 99213 ==

== ENCOUNTER 2021-04-04 12:10 | Emergency (ER) | payer MEDICARE, OTHER, SELFPAY ==
[2021-04-04] VITALS (7 sets, daily range): BP systolic 108–118; BP diastolic 54–73; PULSE 52–73; RESP 15–21; TEMP 37.2; O2SAT 95–97; BMI 25.0
--- NOTE | 2021-04-04 12:40 | XRR_ITS ---
PROCEDURE INFORMATION: Exam: XR Chest Exam date and time: 04/04/2021 12:40 PM Age: 55 years old Clinical indication: Pain; Angina pectoris and chest pressure; Additional info: Chest pain TECHNIQUE: Imaging protocol: XR of the chest. Views: 1 view. COMPARISON: CR XR chest 1V portable [id number] 09/24/2020 3:34 PM FINDINGS: Lungs: Stable lungs. Pleural spaces: Unremarkable. No pleural effusion. No pneumothorax. Heart/Mediastinum: Unremarkable. No cardiomegaly. Bones/joints: Unremarkable. XR/XR chest 1V portable [id number] IMPRESSION: No acute findings.
--- NOTE | 2021-04-04 12:41 | W.ED.CHESTPA ---
HPI - Chest Pain General: Chief Complaint: Chest Pain Stated Complaint: CP Time Seen by Provider: 04/04/21 12:32 Source: patient Mode of arrival: ambulatory Limitations: no limitations History of Present Illness: HPI narrative: Patient with complaints of chest pain that started approximately 2 hours prior to arrival. She states she has mild nausea. She thought she was having heartburn so she took an antacid medication but this did not help. She also states the chest pressure radiates into her left arm. Pain is mostly substernal in the inferior portion of her chest. She denies any abdominal pain or fever or cough or shortness of breath. See nursing assessment. complaint: chest pain (Pressure) Pertinent past history: other (History of a remote arrhythmia but not on medication for this.) Onset (ago): hour(s) (2) Timing of current episode: constant Prior episodes: No Onset: during rest Pain location: substernal Pain radiation: left arm Severity: moderate Quality: other (Pressure) Relieving factors: nothing Exacerbating factors: nothing Associated symptoms: Reports nausea; Deny abdominal pain, diaphoresis, dyspnea, fever(s), leg edema, palpitations, sense of impending doom, syncope or vomiting Treatment prior to arrival: other (Unknown antacid medication) Risk Factors: Coronary artery disease risk factors: smoking history Review of Systems Const: Denies: fever(s), body aches or diaphoresis Eyes: Denies: change in vision ENMT: Denies: throat pain Card: Reports: chest pain; Denies: palpitations or syncope Resp: Denies: dyspnea GI: Reports: nausea; Denies: abdominal pain or vomiting : Denies: flank pain Musc: Denies: neck pain or back pain Skin/Breast: Denies: rash or pruritus Neuro: Denies: headache(s) or numbness in extremities Psych: Denies: anxiety [place]/Lymph: Denies: enlarged lymph nodes PFS ED PFSH: Medical History (Updated 04/04/21 @ 16:05 by Ag Reno MD) SUSY positive Arthralgia Fatigue Family History Mother Suicide Father Rheumatoid arthritis Social History Smoking and tobacco status: current every day smoker (5 cig qd) cigarettes [ Other cigarette details: Hx of 1 PPD x 40 Years ] Quit status (tobacco): has tried quititng Number of times tried to quit tobacco: 4 Second hand smoke exposure: Yes Smoking risk assessment/counseling performed?: Yes Alcohol intake: never Lives independently: Yes Household members: spouse Marital status: Current occupational status: disabled Pets and animals: Yes History of recent travel: No Current gender identity: Female Physical Exam Const: COMMON NORMALS: average body habitus, patient oriented x3, no limitations, healthy appearing, alert and well nourished (Complaining of mild to moderate chest pain now.) GENERAL APPEARANCE: cooperative HENMT: COMMON NORMALS: normocephalic and atraumatic HEAD & SCALP: normocephalic and atraumatic FACE & SINUS: normal facial exam Eye: COMMON NORMALS: EOMs intact bilaterally Neck/C-Spine: COMMON NORMALS: full ROM, no lymphadenopathy, supple, no meningeal signs and no JVD GENERAL: Yes normal visual inspection Lymph: LYMPHATIC: no lymphadenopathy noted Chest: COMMONS NORMALS: normal inspection of the chest and normal palpation of entire chest wall CHEST: No Ecchymosis present and No rash Resp: COMMON NORMALS: normal respiratory effort, No retractions, No use of accessory muscles and clear to auscultation bilaterally EFFORT & INSPECTION: No respiratory distress AUSCULTATION: clear to auscultation bilaterally Cardio: COMMON NORMALS: no JVD, regular rate, regular rhythm and Peripheral pulses 2+ throughout JUGULAR VENOUS DISTENTION: no JVD RATE: regular rate RHYTHM: regular rhythm PERIPHERAL PULSES: Peripheral pulses 2+ throughout GI: COMMON NORMALS: Normal to inspection, nondistended, normoactive bowel sounds present and non-tender : COMMON NORMALS: Yes no CVA tenderness BLADDER/KIDNEY EXAM: Yes no CVA tenderness Back/Pelvis: COMMON NORMALS: no CVA tenderness Extremity: COMMON NORMALS: normal to inspection, full ROM and capillary refill normal Neuro: COMMON NORMALS: patient oriented x3, CN's II-XII intact bilaterally, no focal motor deficits and no sensory deficits noted SENSORIUM/ORIENTATION: Yes alert MENINGEAL SIGNS: Yes no meningeal signs Psych: COMMON NORMALS: mental status grossly normal and Normal thought process present THOUGHT PROCESS: Normal thought process present Skin: COMMON NORMALS: no rashes or lesions noted, no wounds and no jaundice GENERAL SKIN EXAM: no rashes or lesions noted Course Vital Signs: Vital signs: Vital Signs Temperature 98.9 F 04/04/21 13:29 Pulse Rate 55 L 04/04/21 14:58 Respiratory Rate 18 04/04/21 15:04 Blood Pressure 110/64 04/04/21 14:58 Pulse Oximetry 97 04/04/21 14:58 MDM - Chest Pain MDM Narrative: Medical decision making narrative: 1602: Patient feeling well. Second troponin is still normal. Will have patient follow-up with a Dr. Montoya victims advocate clerk/specialist for cardiac stress test. Patient may be having esophageal spasm and/or GERD Lab Data: Attestation: I reviewed the patient's lab results. Labs: Lab Results 04/04/21 04/04/21 04/04/21 Range/Units 13:15 13:15 13:15 WBC 5.8 (4.0-10.0) 10^3/ uL RBC 4.03 L (4.1-5.3) 10^6/u L Hgb 12.9 (11.5-15.3) g/dL Hct 38.0 (37.0-47.0) % MCV 94.3 (81-99) fL MCH 32.0 (28.0-34.0) pg MCHC 33.9 (30.0-36.0) g/dL RDW 12.8 (12.1-15.1) % Plt Count 114 L (130-400) 10^3/c mm MPV 12.8 H (7.4-10.4) fL Neut % (Auto) 63.3 % Lymph % (Auto) 26.7 % [place] % (Auto) 6.6 % Eos % (Auto) 2.1 % Baso % (Auto) 1.0 % Neut # (Auto) 3.67 (1.8-7.7) 10^3/u L Lymph # (Auto) 1.6 (0.8-4.8) 10^3/u L [place] # (Auto) 0.4 (0.2-0.9) 10^3/u L Eos # (Auto) 0.1 (0.0-0.8) 10^3/u L Baso # (Auto) 0.1 (0.0-0.1) 10^3/u L Nucleated RBC % (a uto) 0 % Nucleated RBCs # 0.0 /100WBC Sodium 144 (136-145) mmol/L Potassium 3.7 (3.5-5.1) mmol/L Chloride 111 H (98-107) mmol/L Carbon Dioxide 24 (22-29) mmol/L Anion Gap 12.7 (5-19) BUN 12 (6-20) mg/dL Creatinine 0.6 (0.5-0.9) mg/dL GFR Calculation 104.2 (90-130) mL/min Glucose 104 (65-115) mg/dL Calculated Osmolal ity 298 H (285-295) mOsm/k g Calcium 8.8 (8.5-10.5) mg/dL Troponin T Baselin e 6 (0-10) ng/L Troponin T 120 Min [place] (0-10) ng/L Delta Troponin T (0-10) ABS# 07/02/18 Range/Units 15:13 WBC (4.0-10.0) 10^3/ uL RBC (4.1-5.3) 10^6/u L Hgb (11.5-15.3) g/dL Hct (37.0-47.0) % MCV (81-99) fL MCH (28.0-34.0) pg MCHC (30.0-36.0) g/dL RDW (12.1-15.1) % Plt Count (130-400) 10^3/c mm MPV (7.4-10.4) fL Neut % (Auto) % Lymph % (Auto) % [place] % (Auto) % Eos % (Auto) % Baso % (Auto) % Neut # (Auto) (1.8-7.7) 10^3/u L Lymph # (Auto) (0.8-4.8) 10^3/u L [place] # (Auto) (0.2-0.9) 10^3/u L Eos # (Auto) (0.0-0.8) 10^3/u L Baso # (Auto) (0.0-0.1) 10^3/u L Nucleated RBC % (a uto) % Nucleated RBCs # /100WBC Sodium (136-145) mmol/L Potassium (3.5-5.1) mmol/L Chloride (98-107) mmol/L Carbon Dioxide (22-29) mmol/L Anion Gap (5-19) BUN (6-20) mg/dL Creatinine (0.5-0.9) mg/dL GFR Calculation (90-130) mL/min Glucose (65-115) mg/dL Calculated Osmolal ity (285-295) mOsm/k g Calcium (8.5-10.5) mg/dL Troponin T Baselin e (0-10) ng/L Troponin T 120 Min [place] 6.00 (0-10) ng/L Delta Troponin T 0 (0-10) ABS# Imaging Data^: CXR: Attestation: I personally reviewed and interpreted this imaging study as follows: My impression: Chest x-ray appears normal. Nothing acute Radiologist's impression: Olga Lidia Villagomez #: [id number]: 1965Acct#:[id number]/Sex: 55 / FADM Date: 04/04/21Loc: ERRoom/Bed:Attending Dr: Ordering Provider/Ordering MD: Ag Reno MD Date of Service: 04/04/21 Procedure(s): XR chest 1V portable [id number] Accession Number(s): [id number] Report Number: [id number] PROCEDURE INFORMATION: Exam: XR Chest Exam date and time: 04/04/2021 12:40 PM Age: 55 years old Clinical indication: Pain; Angina pectoris and chest pressure; Additional info: Chest pain TECHNIQUE: Imaging protocol: XR of the chest. Views: 1 view. COMPARISON: CR XR chest 1V portable [id number] 09/24/2020 3:34 PM FINDINGS: Lungs: Stable lungs. Pleural spaces: Unremarkable. No pleural effusion. No pneumothorax. Heart/Mediastinum: Unremarkable. No cardiomegaly. Bones/joints: Unremarkable. XR/XR chest 1V portable [id number] IMPRESSION: No acute findings. Dictated By:Ray Logan MDSigned By:Ray Logan MDSigned Date/Time:04/04/21 1335 EKG Data^: EKG 1: Attestation: I personally reviewed and interpreted this EKG as follows: EKG interpretation date: 04/04/21 EKG interpretation time: 12:28 Prior EKG tracings: not available for review Interpretation: EKG shows normal sinus rhythm. Heart rate 74, normal WV interval, normal QRS, normal ST segment, normal P waves, normal T wave, normal QT interval, normal axis. Impression normal EKG. EKG 2: Attestation: I personally reviewed and interpreted this EKG as follows: EKG interpretation date: 04/04/21 EKG interpretation time: 14:35 Prior EKG tracings: available for review Interpretation: EKG shows sinus bradycardia heart rate 53. Normal WV interval. Normal P wave, normal QRS, normal ST segment, normal T waves, normal QT interval, normal axis. Impression sinus bradycardia otherwise normal EKG. Discharge Plan Discharge Patient Disposition: Home Clinical Impression: Atypical chest pain, Esophageal spasm, Chest pain due to GERD Condition: Stable Prescriptions: New Levsin 0.125 mg tablet 0.125 mg sublingual Q6H PRN (Reason: dyspepsia) Qty: 14 RF: 0 Carafate 1 gram tablet 1 g PO Q6H Qty: 20 RF: 2 Zofran 4 mg tablet 4 mg PO Q6H PRN (Reason: nausea and vomiting) Qty: 10 RF: 2 omeprazole 40 mg capsule,delayed release(DR/EC) 40 mg PO DAILY Qty: 14 RF: 2 No Action hydroxyzine HCl 50 mg tablet 50 mg PO QID PRN (Reason: insomnia/anxiety) Qty: 120 RF: 2 dihydroergotamine 0.5 mg/pump act. (4 mg/mL) spray,non-aerosol 1 spray INTRANASAL Q15M RF: 0 sertraline 100 mg tablet 100 mg PO DAILY Qty: 30 RF: 2 buspirone 10 mg tablet 20 mg PO BID Qty: 120 RF: 2 prazosin 1 mg capsule 3 mg PO BEDTIME@2100 Qty: 90 RF: 2 Chantix Starting Month Box 0.5 mg (11)- 1 mg (42) tablets,dose pack See Rx Instructions PO PER PKG DIR Qty: 53 RF: 0 levetiracetam 750 mg tablet extended release 24 hr See Rx Instructions .ROUTE .COMPLEX Qty: 60 RF: 0 hydroxychloroquine 200 mg tablet 200 mg PO BID@0800,2100 Qty: 180 RF: 3 naproxen [Naprosyn] 500 mg tablet 500 mg PO BID PRN (Reason: pain) Qty: 20 RF: 0 cyclobenzaprine 10 mg tablet 10 mg PO TID PRN (Reason: muscle spasm) Qty: 30 RF: 0 Tylenol 325 mg Tablet 325 - 650 mg PO QID PRN (Reason: Pain) RF: 0 Trelegy Ellipta 100-62.5-25 mcg blister with device 1 inh INHALATION DAILY@0800 RF: 0 Discharge Orders: Discharge ED (Routine); Ordered 04/04/21 Ordered By: Ag Reno Referrals: Ant Lane MD [Physician] - Marie Torres PA [Primary Care Provider] - Discharge Diet: Advance as tolerated Discharge Activity: Increase activity as tolerated Patient Instructions: Chest Pain (ED), Gastroesophageal Reflux Disease (ED), Acute Nausea and Vomiting (ED), Esophageal Spasm (ED) Activity Restrictions/Additional Instructions: Follow-up with victims advocate clerk/specialist Dr. Lane this week to arrange cardiac stress test to evaluate your chest pain. Take Levsin as needed for pain. Return if problems. Avoid smoking. Coding Level of Care Code ED Gravel Roofer for Chg Fwd Exam Comprehensive
[2021-04-04] MEDS: ondansetron 2 mg/ML SDV 2 mL 4 MG IVP (13:02)
[2021-04-04] MEDS: morphine 4 mg/mL SDV 1 mL 2 MG IVP ×2 (13:02→15:04)
[2021-04-04] MEDS: aspirin 81 mg Chew Tablet 324 MG PO (13:03)
[2021-04-04 13:28] LABS: Basophils # 0.1 10^3/uL (0.0-0.1); Eosinophils # 0.1 10^3/uL (0.0-0.8); Eosinophils % 2.1 %; Hemoglobin 12.9 g/dL (11.5-15.3); Lymphocytes # 1.6 10^3/uL (0.8-4.8); Lymphocytes % 26.7 %; Mean Corpuscular HGB Conc 33.9 g/dL (30.0-36.0); Mean Corpuscular Volume 94.3 fL (81-99); Mean Platelet Volume 12.8 fL (7.4-10.4); Monocytes # 0.4 10^3/uL (0.2-0.9); Monocytes % 6.6 %; Neutrophils # 3.67 10^3/uL (1.8-7.7); Neutrophils % 63.3 %; Nucleated Red Blood Cells % 0 %; Platelet Count 114 10^3/cmm (130-400); Red Blood Count 4.03 10^6/uL (4.1-5.3); Red Cell Distribution Width 12.8 % (12.1-15.1); White Blood Count 5.8 10^3/uL (4.0-10.0)
[2021-04-04 13:39] LABS: Anion Gap 12.7 (5-19); Blood Urea Nitrogen 12 mg/dL (6-20); Calcium 8.8 mg/dL (8.5-10.5); Carbon Dioxide 24 mmol/L (22-29); Chloride 111 mmol/L (98-107); Glomerular Filtration Rate 104.2 mL/min (90-130); Glucose 104 mg/dL (65-115); Osmolality Calculated 298 mOsm/kg (285-295); Potassium 3.7 mmol/L (3.5-5.1); Sodium 144 mmol/L (136-145)
[2021-04-04 13:41] LABS: Troponin(5th) Baseline 6 ng/L (0-10)
--- NOTE | 2021-04-04 14:40 | ECG_ITS ---
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
[2021-04-04 15:58] LABS: Troponin 5 2HR Delta 0 ABS# (0-10)
== END 2021-04-04 16:57 | disposition home or self-care (01) ==
PROVIDERS: Emergency Provider Family Medicine; PCP Physician Assistant
DX: R07.89 Other chest pain (principal); K22.4 Dyskinesia of esophagus; K21.9 Gastro-esophageal reflux disease without esophagitis; F17.210 Nicotine dependence, cigarettes, uncomplicated
CPT/HCPCS: 36415; 71045; 80048; 84484; 85025; 93005; 96374; 96375; 96376; 99284; J2270; J2405

== ENCOUNTER → 2021-04-13 10:33 | Outpatient (BNVA) | payer MEDICARE, OTHER, SELFPAY | PROVIDERS: PCP Physician Assistant; Referring Provider Internal Medicine; Visit Provider Specialist | DX: M25.561 Pain in right knee (principal) | CPT/HCPCS: 73560; 73565 ==

== ENCOUNTER 2021-04-22 08:35 | Outpatient (CLI) | payer MEDICARE, OTHER, SELFPAY ==
--- NOTE | 2021-04-22 09:04 | MR_ITS ---
WS: [id number] MRI RIGHT KNEE NONCONTRAST TECHNIQUE: Axial PD, coronal PD fat sat, coronal PD, sagittal PD, and sagittal PD fat-sat images obta ined. CLINICAL INFORMATION: M17.10 - Unilateral primary osteoarthritis, unspecified knee COMPARISON: None. FINDINGS: Distal quadriceps and patella tendons are intact. Small joint effusion. Small amount of prepatellar a nd infrapatellar soft tissue edema. Normal ACL and PCL. Normal lateral meniscus. Complex horizontal t ear involving the posterior horn medial meniscus extending to the articular surface. Normal femoral condyles. Normal tibial plateau. Focal chondromalacia patella involving the medial pat charlie facet with focal defect. No significant subchondral edema. Normal popliteal fossa. Medial and la teral collateral ligaments are intact. MR/MR knee RT wo con* [id number] IMPRESSION: 1. Complex tear involving the posterior horn medial meniscus extending to the articular surface. 2. Normal ACL and PCL. 3. Focal cartilage defect involving the medial patella facet with chondromalac ia. No significant subchondral edema. 4. Small joint effusion. 5. Mild joint space narrowing with mild chondromalacia involving the medial an d lateral joint compartments. 6. Small amount of prepatellar and infrapatellar soft tissue edema. Outbridge grading:
== END 2021-04-22 08:36 | disposition home or self-care (01) ==
PROVIDERS: PCP Physician Assistant; Visit Provider Specialist
DX: M17.11 Unilateral primary osteoarthritis, right knee (principal); S83.231A Complex tear of medial meniscus, current injury, right knee, initial encounter; X58.XXXA Exposure to other specified factors, initial encounter; M25.461 Effusion, right knee
CPT/HCPCS: 73721

== ENCOUNTER → 2021-04-26 14:29 | Outpatient (BNVA) | payer MEDICARE, OTHER, SELFPAY | PROVIDERS: PCP Physician Assistant; Visit Provider Specialist | DX: G40.209 Localization-related (focal) (partial) symptomatic epilepsy and epileptic syndromes with complex partial seizures, not intractable, without status epilepticus (principal); G43.711 Chronic migraine without aura, intractable, with status migrainosus; Z71.89 Other specified counseling; F17.210 Nicotine dependence, cigarettes, uncomplicated | CPT/HCPCS: 99214 ==

== ENCOUNTER 2021-05-25 09:31 | Outpatient (CLI) | payer MEDICARE, OTHER, SELFPAY ==
--- NOTE | 2021-05-25 10:00 | CT_ITS ---
WS: [id number] CT CHEST WITHOUT INTRAVENOUS CONTRAST HISTORY: evaluation for lung nodules TECHNIQUE: Contiguous 5 mm axial imaging performed on the thorax. Coronal and sagittal reformats are submitted. All CT scans at [facility] use at least one of these dose optimization techniq ues: automated exposure control; mA and/or kV adjustment per patient size (includes targeted exams wh ere dose is matched to clinical indication); or iterative reconstruction. CONTRAST: None DLP: 684.25 mGycm COMPARISON: 06/08/2020 Lungs and central airway: 2 mm noncalcified nodule RIGHT upper lobe, image 9 of series 3. 2 mm nodule subpleural RIGHT upper lobe, image 17 series 3. 3 mm RIGHT middle lobe nodule, image 24 series 3. Ad ditional RIGHT middle lobe benign granuloma. No LEFT lower lobe pulmonary nodule identified today. Th ere are benign granuloma in the LEFT lower lobe. There is also small amount of atelectasis and pleura l thickening at the LEFT lung base. Pleura: Normal. No pleural effusion. Heart and pericardium: Normal size heart. Mild increased amount of pericardial fat. Mediastinum and joel: No mediastinum or hilar adenopathy. Vessels: Calcification within the thoracic aorta. Normal size pulmonary artery. Chest wall and lower neck: No soft tissue masses. Upper abdomen: Status post cholecystectomy. There is diffuse thickening of the stomach wall. This is a new finding since the prior examination. Thickening extends into the antrum of the stomach. Osseous structures: No destructive process. CT/CT chest wo con [id number] IMPRESSION: 1. Subcentimeter and micropulmonary nodules. No additional workup necessary. S table since 08/11/2019. 2. New extensive thickening of the stomach wall. Consider causes of gastritis and wall thickening. Correlate with any clinical symptoms. Neoplasm cannot be e xcluded on this appearance.
== END 2021-05-25 09:32 | disposition home or self-care (01) ==
LOC: RADWPI 09:35
PROVIDERS: PCP Physician Assistant; Visit Provider Internal Medicine Pulmonary Disease
DX: J84.9 Interstitial pulmonary disease, unspecified (principal); R91.8 Other nonspecific abnormal finding of lung field
CPT/HCPCS: 71250

== ENCOUNTER → 2021-06-13 16:26 | Outpatient (BNVA) | payer MEDICARE, OTHER, SELFPAY | PROVIDERS: PCP Physician Assistant; Visit Provider Specialist | DX: M25.561 Pain in right knee (principal); M25.461 Effusion, right knee; M22.41 Chondromalacia patellae, right knee | CPT/HCPCS: 87635 ==

== ENCOUNTER 2021-06-17 08:27 | Day surgery (SDC) | payer MEDICARE, OTHER, SELFPAY ==
[2021-06-16 14:04] VITALS: BMI 26.9
[2021-06-17] VITALS (8 sets, daily range): BP systolic 114–140; BP diastolic 54–74; PULSE 68–88; RESP 12–17; TEMP 36.1–36.5; O2SAT 95–97
--- NOTE | 2021-06-17 09:03 | P.HPUD_ITS ---
Surgery/Procedure H&P Update DATE OF PROCEDURE: June 17, 2021 DATE H&P PERFORMED: 06/13/21 H&P UPDATE INFORMATION: I have reviewed H&P completed within last 30 days, I have examined patient prior to procedure and H&P is in [facility] [place] EMR on date indicated PREOP DIAGNOSIS: Right knee medial meniscal tear and chondromalacia PLANNED PROCEDURE: Operation Date: 06/17/21 09:50 Proposed Procedures p RIGHT KNEE ARTHROSCOPY WITH PARTIAL MENISECTOMY AND DEBRIDEMENT. [id number] M17.10(Right) - Chanda Perez MD Related Problem List Diagnoses (1) Chondromalacia of right patella: (2) Acute medial meniscus tear of right knee: Qualifiers: Encounter type: initial encounter Qualified Code(s): S83.241A - Other tear of medial meniscus, current injury, right knee, initial encounter
[2021-06-17] MEDS: acetaminophen 1,000 MG/100 ML PIGGYBACK 400 MG IV (09:13)
[2021-06-17] MEDS: sodium chloride 0.9% 1,000 ML 30 ML IV (09:13)
[2021-06-17] MEDS: CELEcoxib 200 mg Capsule 400 MG PO (09:14)
--- NOTE | 2021-06-17 09:21 | ANES.PREANE2 ---
Pre-Anesthetic Assessment Pre-Anesthetic Assessment: Height/Weight: Height 1.6 m Weight 68.946 kg Temp Pulse Resp BP Pulse Ox 97.2 F L 71 17 114/62 96 06/17/21 08:54 06/17/21 08:54 06/17/21 08:54 06/17/21 08:54 06/17/21 08:54 Preop Diagnosis: Right knee medial meniscal tear and chondromalacia Proposed Procedure: Operation Date: 06/17/21 09:50 Proposed Procedures p RIGHT KNEE ARTHROSCOPY WITH PARTIAL MENISECTOMY AND DEBRIDEMENT. [id number] M17.10(Right) - Chanda Perez MD Was Beta Annetta taken within 24 hours: N/A Was Clonidine taken within 24 hours: N/A Last intake: Intake Last Liquid Date 06/16/21 Last Liquid Time 20:00 Last Solid Date 06/16/21 Last Solid Time 17:00 Social: Social History: Alcohol and Tobacco Exam: Pre-Anes Outpt Exam: alert, oriented x 3 and regular rate & rhythm Airway: Submandibular: WNL Cervical ROM: WNL MP: 2 Dentition: False Pulmonary: Pulmonary: COPD GI: GI: GERD Musc/skel: Musc/skel: RA Comments: Chronic steroids Neuropsych: Neuropsych: Anxiety, Depression and Seizure Anesthetic Plan: ASA status: 3 Anesthesia: General Risk of > 500 ml blood loss (7ml/kg in children): No PFSH Anesthesia PFSH: Medical History SUSY positive Arthralgia Fatigue Family History Mother Suicide Father Rheumatoid arthritis Social History Smoking and tobacco status: current every day smoker cigarettes [ Other cigarette details: Hx of 1 PPD x 40 Years ] Quit status (tobacco): has tried quititng Number of times tried to quit tobacco: 4 Second hand smoke exposure: Yes Smoking risk assessment/counseling performed?: Yes Alcohol intake: never Lives independently: Yes Household members: spouse Marital status: Current occupational status: disabled Pets and animals: Yes History of recent travel: No Current gender identity: Female Data Anesthesia Cardiac Studies: No Data to Display
[2021-06-17] MEDS: vancomycin 1,000 MG in sodium chloride 0.9% 250 ML 250 MG IV (09:22)
[2021-06-17] MEDS: morphine 4 mg/mL SDV 1 mL 8 MG XX (10:28)
[2021-06-17] MEDS: fentaNYL 50 mcg/mL INJ 2mL IVP ×2 (11:09→11:14)
--- NOTE | 2021-06-17 11:14 | PM.OP ---
Operative Report Date of procedure: June 17, 2021 Pre-op Diagnosis: Right knee medial meniscal tear and chondromalacia patella Post-op Diagnosis: Right knee medial and lateral meniscal tears with chondromalacia medial femoral condyle, medial and lateral tibial plateaus, and patella. Procedure Done: Right arthroscopic knee surgery with partial medial and lateral meniscectomies, chondroplasties of the medial femoral condyle, medial tibial plateau, and lateral tibial plateau Pathology: none sent Surgeon: Chanda Perez [employer] Supervisor: None Anesthesia: General (LMA, ASA 3, with intra-articular local at end of procedure) Estimated blood loss (mL): 10 Tourniquet time (min): 50 Tourniquet time: At 250 mmHg IV fluids (mL): 700 Urine output (mL): 0 Urine output: No Disla Complications: None Condition: stable Disposition: PACU (Then to same-day surgery for discharge to home) Brief History: This 55-year-old woman presented with complaints of knee pain. MRI demonstrated a posterior horn medial meniscal tear as well as chondromalacia of the patella. After discussion of options, the patient wished to proceed with arthroscopic intervention. Risks and complications were discussed with her. The potential for aggravation of her arthritis was also discussed with her. Consents were signed and questions were answered. The patient was scheduled for the above procedure. Procedure: Patient was brought to the operating theater and after undergoing adequate general anesthesia per LMA, ASA 3, the patient's right lower extremity was prepped and draped in usual fashion utilizing DuraPrep. A tourniquet was placed high on the leg prior to prepping and draping. The tourniquet was elevated prior to commencement of the surgical procedure to 250 mmHg. Total tourniquet time was 50 minutes. Elevation followed prepping and exsanguination. Prior to commencement of the surgical procedure, a surgical pause was performed. At the time of the surgical pause, we identified the site and side of surgery. We also confirm the patient's identity and appropriate and timely administration of preoperative antibiotics. Preoperative surgical markings were also visualized at this time. Standard arthroscopic portals were utilized including superolateral, inferomedial, and inferolateral portals. The examination commenced in the suprapatellar pouch area where the patient was noted to have chondromalacia of the undersurface of the patella. The arthroscope was then passed in the medial compartment where there was noted to be posterior horn meniscal tearing consistent with the MRI. There was a displaced fragment into the joint. There was also noted to be significant chondromalacia of the medial femoral condyle and medial tibial plateau. This was addressed utilizing a combination of basket forceps, the shaver, and the heat wand to address the meniscal tear. The area was difficult to access as it was in the very posterior corner. The tear, however, extended around to the midportion of the meniscus and this was addressed as well. After the tear had been addressed, a chondroplasty was performed primarily using the shaver and heat wand of the medial tibial plateau and medial femoral condyle. The arthroscope was then passed across the notch area where anterior cruciate ligament was visualized and found to be intact. There was synovitis anteriorly and about the anterior cruciate ligament, and this was removed with the shaver. The scope was then passed into the lateral compartment with the knee in a [id number] position. Lateral meniscus was noted to have tearing and irregularity of the inner border of the meniscus. This was addressed with a combination of the shaver and the intra-articular heat wand. Once lateral meniscus had been thus prepared, it was palpated and found to be intact and not displaceable into the knee joint. Scope was then returned to the medial compartment where once again, the meniscus was palpated and found to be intact and unable to be displaced into the joint. The arthroscope was then returned to the patellofemoral joint where a synovectomy of the anterior aspect of the joint was performed. Once the anterior knee had been addressed, the scope was passed back through the knee compartments to evaluate for other abnormalities. Finding none, attention was directed to closure. The knee was copiously irrigated and suctioned dry. Following this, each portal was closed with a simple suture followed by Dermabond, a Steri-Strip strip, and OpSite. Additionally, the knee was injected with 30 mL of half percent ropivacaine and 8 mg of morphine. After injection, further dressing was placed consisting of sterile soft roll and an Federico wrap. Patient was returned to Recovery Room in satisfactory condition where she will be discharged home to follow-up with me in the office as scheduled. There were no complications and no specimens. Associated Problem List Diagnoses (1) Acute medial meniscus tear of right knee: Qualifiers: Encounter type: initial encounter Qualified Code(s): S83.241A - Other tear of medial meniscus, current injury, right knee, initial encounter (2) Chondromalacia of right patella: (3) Primary osteoarthritis of right knee: (4) Acute lateral meniscus tear of right knee: Qualifiers: Encounter type: initial encounter Qualified Code(s): S83.281A - Other tear of lateral meniscus, current injury, right knee, initial encounter
[2021-06-17] MEDS: diphenhydrAMINE 50 mg/mL SDV 1mL 12.5 MG IVP (11:51)
[2021-06-17] MEDS: metoclopramide 5 mg/mL SDV 2 mL 10 MG IVP (12:20)
[2021-06-17] MEDS: HYDROcodone-acetaminophen 5-325 mg Tablet 1 TAB PO (12:42)
--- NOTE | 2021-06-17 13:35 | ANE.PACU2 ---
Inpatient post-anesthesia follow up: Airway intact: Yes Vital signs: Temperature 96.9 F Pulse Rate 76 Respiratory Rate 17 Blood Pressure 122/74 Pulse Oximetry 95 Oxygen Delivery Me thod Room Air Oxygen Flow Rate Fraction of Inspir ed Oxygen Hydration adequate: Yes Nausea and vomiting: Yes Pain level: 2 Mental status: Baseline
== END 2021-06-17 13:01 | disposition home or self-care (01) ==
PROVIDERS: PCP Physician Assistant; Visit Provider Specialist
PROC: (CPT 29870; principal; 2021-06-17 09:50)
DX: S83.241A Other tear of medial meniscus, current injury, right knee, initial encounter (principal); S83.281A Other tear of lateral meniscus, current injury, right knee, initial encounter; M22.41 Chondromalacia patellae, right knee; M17.11 Unilateral primary osteoarthritis, right knee; J44.9 Chronic obstructive pulmonary disease, unspecified; K21.9 Gastro-esophageal reflux disease without esophagitis; M06.9 Rheumatoid arthritis, unspecified; Z79.52 Long term (current) use of systemic steroids; F17.210 Nicotine dependence, cigarettes, uncomplicated
CPT/HCPCS: 29880; 96365; J1170; J1200; J2270; J2704; J2765; J2795; J3010; J3370; J7030; J7050

== ENCOUNTER → 2021-06-28 12:05 | Outpatient (BNVA) | payer MEDICARE, OTHER, SELFPAY | PROVIDERS: PCP Physician Assistant; Visit Provider Psychiatry & Neurology Psychiatry | DX: F41.1 Generalized anxiety disorder (principal); F33.2 Major depressive disorder, recurrent severe without psychotic features; F43.12 Post-traumatic stress disorder, chronic | CPT/HCPCS: 99214 ==

== ENCOUNTER 2021-07-05 12:49 | Outpatient (RCR) | payer MEDICARE, OTHER, SELFPAY | END 2021-07-31 23:59 | disposition home or self-care (01) | LOC: SPT 12:49 | PROVIDERS: PCP Physician Assistant; Referring Provider Specialist; Visit Provider Specialist | DX: Z47.89 Encounter for other orthopedic aftercare (principal) | CPT/HCPCS: 97110; 97161 ==

== ENCOUNTER → 2021-07-19 13:01 | Outpatient (BNVA) | payer MEDICARE, OTHER, SELFPAY | PROVIDERS: PCP Physician Assistant; Visit Provider Specialist | DX: G43.709 Chronic migraine without aura, not intractable, without status migrainosus (principal); G40.209 Localization-related (focal) (partial) symptomatic epilepsy and epileptic syndromes with complex partial seizures, not intractable, without status epilepticus; F17.210 Nicotine dependence, cigarettes, uncomplicated | CPT/HCPCS: 99213; 99214 ==

== ENCOUNTER → 2021-07-20 10:55 | Outpatient (BNVA) | payer MEDICARE, OTHER, SELFPAY | PROVIDERS: PCP Physician Assistant; Visit Provider Social Worker | DX: F43.12 Post-traumatic stress disorder, chronic (principal); F33.2 Major depressive disorder, recurrent severe without psychotic features; F41.1 Generalized anxiety disorder | CPT/HCPCS: 90834 ==

== ENCOUNTER → 2021-08-03 11:19 | Outpatient (BNVA) | payer MEDICARE, OTHER, SELFPAY | PROVIDERS: PCP Physician Assistant; Visit Provider Social Worker | DX: F43.12 Post-traumatic stress disorder, chronic (principal); F33.2 Major depressive disorder, recurrent severe without psychotic features; F41.1 Generalized anxiety disorder | CPT/HCPCS: 90837; 90834 ==

== ENCOUNTER → 2021-08-22 11:17 | Outpatient (BNVA) | payer MEDICARE, OTHER, SELFPAY | PROVIDERS: PCP Physician Assistant; Visit Provider Social Worker | DX: F43.12 Post-traumatic stress disorder, chronic (principal); F33.2 Major depressive disorder, recurrent severe without psychotic features; F41.1 Generalized anxiety disorder | CPT/HCPCS: 90837; 90834 ==

== ENCOUNTER → 2021-08-23 09:23 | Outpatient (BNVA) | payer MEDICARE, OTHER, SELFPAY | PROVIDERS: PCP Physician Assistant; Visit Provider Internal Medicine | DX: M35.1 Other overlap syndromes (principal); Z79.899 Other long term (current) drug therapy | CPT/HCPCS: 80053; 85025; 85651; 86140 ==

== ENCOUNTER 2021-08-31 06:00 | Outpatient (RCR) | payer MEDICARE, OTHER, SELFPAY | END 2021-09-30 23:59 | disposition home or self-care (01) | LOC: SPT 06:00 | PROVIDERS: PCP Physician Assistant; Referring Provider Specialist; Visit Provider Specialist | DX: Z48.89 Encounter for other specified surgical aftercare (principal) | CPT/HCPCS: 97110 ==

== ENCOUNTER → 2021-09-01 12:48 | Outpatient (BNVA) | payer MEDICARE, OTHER, SELFPAY | PROVIDERS: PCP Physician Assistant; Visit Provider Internal Medicine | DX: M35.1 Other overlap syndromes (principal); R76.8 Other specified abnormal immunological findings in serum; R53.83 Other fatigue; M25.50 Pain in unspecified joint; F17.210 Nicotine dependence, cigarettes, uncomplicated | CPT/HCPCS: 99214 ==

== ENCOUNTER → 2021-09-12 10:17 | Outpatient (BNVA) | payer MEDICARE, OTHER, SELFPAY | PROVIDERS: PCP Physician Assistant; Visit Provider Social Worker | DX: F43.12 Post-traumatic stress disorder, chronic (principal); F33.2 Major depressive disorder, recurrent severe without psychotic features; F41.1 Generalized anxiety disorder | CPT/HCPCS: 90834 ==

== ENCOUNTER → 2021-09-13 11:15 | Outpatient (BNVA) | payer MEDICARE, OTHER, SELFPAY | PROVIDERS: PCP Physician Assistant; Visit Provider Psychiatry & Neurology Psychiatry | DX: F41.1 Generalized anxiety disorder (principal); F33.2 Major depressive disorder, recurrent severe without psychotic features; F43.12 Post-traumatic stress disorder, chronic; F17.200 Nicotine dependence, unspecified, uncomplicated; F10.21 Alcohol dependence, in remission | CPT/HCPCS: 99213 ==

== ENCOUNTER → 2021-09-28 10:07 | Outpatient (BNVA) | payer MEDICARE, OTHER, SELFPAY | PROVIDERS: PCP Physician Assistant; Visit Provider Social Worker | DX: F43.12 Post-traumatic stress disorder, chronic (principal); F33.2 Major depressive disorder, recurrent severe without psychotic features; F41.1 Generalized anxiety disorder | CPT/HCPCS: 90837; 90834 ==

== ENCOUNTER → 2021-10-12 10:10 | Outpatient (BNVA) | payer MEDICARE, OTHER, SELFPAY | PROVIDERS: PCP Physician Assistant; Visit Provider Social Worker | DX: F43.10 Post-traumatic stress disorder, unspecified (principal); F33.2 Major depressive disorder, recurrent severe without psychotic features; F41.1 Generalized anxiety disorder; F43.12 Post-traumatic stress disorder, chronic | CPT/HCPCS: 90834 ==

== ENCOUNTER 2021-10-26 12:15 | Emergency (ER) | payer MEDICARE, OTHER, SELFPAY ==
[2021-10-26 12:30] VITALS: BP 103/53; PULSE 89; RESP 18; TEMP 37.9; O2SAT 96; BMI 28.3
--- NOTE | 2021-10-26 12:37 | XR_ITS ---
WS: [id number] PORTABLE CHEST HISTORY: SOB, cough; COVID exposure COMPARISON: 04/04/2021 Lungs are clear and well expanded. No pleural effusion or pneumothorax. Cardiac size: Normal. Mediastinum/Aorta: Normal mediastinum. No osseous abnormality seen. XR/XR chest 1V portable [id number] IMPRESSION: Unremarkable portable chest.
[2021-10-26 13:36] LABS: Influenza A by IFA Negative (Negative); Influenza B by IFA Negative (Negative); SARS Covid-2 Antigen Negative (Negative)
--- NOTE | 2021-10-26 14:50 | ED_ITS ---
HPI - General Adult General: Chief complaint: Fever Stated complaint: FEVER, H/A, N/V/D Time Seen by Provider: 10/26/21 14:42 Source: patient Mode of arrival: ambulatory Limitations: no limitations History of Present Illness: This patient presents to our emergency department because of body aches, myalgias, low-grade fevers and generalized malaise. She states his symptoms began Sunday afternoon and have progressed over that period of time. She states that her son who lives with her at home has had similar symptoms onset about the same time. She is unimmunized against COVID-19. She states that she was around others on Sunday at worship that had apparently recently had Covid. 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 She denies vomiting or diarrhea states she has had some mild nausea. She has a occasional dry cough. She has a history of COPD. She denies any chest pain. She denies any neck pain or other sources of fever such as dysuria, abdominal pain etc. Associated symptoms: Reports cough, fevers/chills, headache(s) and nausea; Deny chest pain, dyspnea, rash, palpitations, syncope or vomiting Treatments prior to arrival: NSAID Review of Systems Const: Reports: fever(s), chills, body aches and change in appetite Eyes: Denies: change in vision ENMT: Reports: nasal congestion; Denies: throat pain, odynophagia or hoarseness Card: Denies: chest pain, palpitations, irregular heart rhythm, swelling of feet/ankles or syncope Resp: Denies: dyspnea, productive cough, wheezing or stridor GI: Reports: nausea; Denies: abdominal pain, vomiting or GI cramping : Denies: flank pain, difficulty voiding, dysuria, urinary frequency, urinary urgency or urinary hesitancy Musc: Reports: back pain, extremity pain and joint pain; Denies: extremity swelling or joint redness Skin/Breast: Denies: rash, pruritus or erythema Neuro: Reports: headache(s); Denies: difficulty walking, dizziness, vertigo or Slurred speech present [place]/Lymph: Denies: easy bruising or easy bleeding PFS ED PFSH: Medical History SUSY positive Arthralgia Fatigue Psychiatric care Family History Mother Suicide Father Rheumatoid arthritis Social History Quit status (tobacco): has tried quititng Number of times tried to quit tobacco: 4 Second hand smoke exposure: Yes Smoking risk assessment/counseling performed?: Yes Alcohol intake: never Lives independently: Yes Household members: spouse Marital status: Current occupational status: disabled Pets and animals: Yes History of recent travel: No Current gender identity: Female Physical Exam Narrative: EXAM NARRATIVE: The patient makes good eye contact. She is comfortable appearing but speech is goal-directed and in no acute distress. Const: COMMON NORMALS: average body habitus and patient oriented x3 GENERAL APPEARANCE: cooperative HENMT: COMMON NORMALS: normocephalic and Normal nasal mucous membranes and turbinates present HEAD & SCALP: normocephalic FACE & SINUS: normal facial exam and sinuses nontender NOSE: Normal nasal mucous membranes and turbinates present MOUTH: Normal oral and palatal mucosa present Eye: COMMON NORMALS: Equal, round and reactive pupils present, EOMs intact bilaterally and conjunctivae normal CONJUNCTIVA: Yes conjunctivae normal PUPIL: Yes Equal, round and reactive pupils present Neck/C-Spine: COMMON NORMALS: full ROM, no lymphadenopathy, no meningeal signs and no JVD Chest: COMMONS NORMALS: normal inspection of the chest Resp: COMMON NORMALS: normal respiratory effort, No retractions, No use of accessory muscles, clear to auscultation bilaterally and percussion normal AUSCULTATION: clear to auscultation bilaterally PERCUSSION: percussion normal Cardio: COMMON NORMALS: no JVD, regular rate, regular rhythm and S1 normal heart sound present RATE: regular rate RHYTHM: regular rhythm HEART SOUNDS: S1 normal heart sound present GI: COMMON NORMALS: Normal to inspection, nondistended, normoactive bowel sounds present, Soft to palpation, non-tender, No hepatosplenomegaly present and no masses PALPATION: Yes Soft to palpation and Yes No hepatosplenomegaly present : COMMON NORMALS: Yes no CVA tenderness BLADDER/KIDNEY EXAM: Yes no CVA tenderness Back/Pelvis: COMMON NORMALS: no CVA tenderness, thoracic and lumbar spine normal to inspection, no thoracic nor lumbar tenderness and thoraco-lumbar ROM normal Extremity: COMMON NORMALS: normal to inspection, full ROM, capillary refill normal, no joint enlargement, no clubbing, cyanosis or edema and no calf tenderness Neuro: COMMON NORMALS: patient oriented x3, moves all extremities and no focal motor deficits MENINGEAL SIGNS: Yes no meningeal signs SPEECH: speech normal Psych: COMMON NORMALS: mental status grossly normal and Normal thought process present THOUGHT PROCESS: Normal thought process present Skin: COMMON NORMALS: no rashes or lesions noted and turgor normal GENERAL SKIN EXAM: no rashes or lesions noted and turgor normal Course Vital Signs: Vital signs: Vital Signs Temperature 100.2 F H 10/26/21 12:30 Pulse Rate 89 10/26/21 12:30 Respiratory Rate 18 10/26/21 12:30 Blood Pressure 103/53 10/26/21 12:30 Pulse Oximetry 96 10/26/21 12:30 MDM - General Adult Medical Decision Making Patient has symptoms consistent with a viral illness. Her influenza is negative as well as her COVID-19. Her chest x-ray is reassuring. Certainly the COVID-19 antigen is very sensitive so the likely not a false negative however influenza of which she is not immunized against could be falsely negative and I shared those thoughts with the patient. Again clinically she does not suggest a patient who is septic or has serious medical conditions require further hospitalization and or emergency department evaluation at this time. I discussed symptomatic treatment with her. We will provide her antiemetics. We also discussed return precautions in detail. She was comfortable to plan of care. Lab Data I reviewed the patient's lab results. Radiology Impressions Chest X-Ray 10/26/21 12:37 IMPRESSION: Unremarkable portable chest. Laboratory Results Influenza Type A Ag Negative (Negative) 10/26/21 13:10 Influenza Type B Ag Negative (Negative) 10/26/21 13:10 SARS-CoV-2 Ag (Rapid) Negative (Negative) 10/26/21 13:10 Imaging Data CXR: Radiologist's impression: No acute disease. Discharge Plan Discharge Patient Disposition: Home Clinical Impression: Nonspecific syndrome suggestive of viral illness Condition: Stable Prescriptions: New Reglan 5 mg tablet 5 mg PO BID Qty: 10 0RF No Action Ajovy Autoinjector 225 mg/1.5 mL auto-injector 225 mg SUBCUT ONCE Qty: 1.5 3RF levetiracetam 750 mg tablet extended release 24 hr 1,500 mg PO DAILY Qty: 180 3RF buspirone 10 mg tablet 20 mg PO BID Qty: 120 2RF prednisone 20 mg tablet 20 mg PO DAILY Qty: 7 0RF hydroxyzine HCl 50 mg tablet 50 mg PO QID PRN (Reason: insomnia/anxiety) Qty: 120 2RF prazosin 1 mg capsule 3 mg PO BEDTIME@2100 Qty: 90 2RF sertraline 100 mg tablet 100 mg PO DAILY Qty: 30 2RF dihydroergotamine 0.5 mg/pump act. (4 mg/mL) spray,non-aerosol 1 spray INTRANASAL Q15M PRN (Reason: Migraine Headache) 0RF Rx Instructions: administer into each nostril cholecalciferol (vitamin D3) 25 mcg (1,000 unit) capsule 25 mcg PO DAILY Qty: 30 1RF mecobalamin (vitamin B12) 1,000 mcg tablet,chewable 1,000 mcg PO DAILY Qty: 30 0RF Trelegy Ellipta 100-62.5-25 mcg blister with device 1 inh INHALATION DAILY@0800 Qty: 60 3RF budesonide [Pulmicort] 0.5 mg/2 mL suspension for nebulization 0.25 mg inhalation BID Qty: 60 5RF formoterol fumarate [Perforomist] 20 mcg/2 mL solution for nebulization 2 ml inhalation BID Qty: 120 5RF guaifenesin [Mucinex] 600 mg tablet extended release 12hr 600 mg PO BID Qty: 60 5RF naproxen [Naprosyn] 500 mg tablet 500 mg PO BID PRN (Reason: pain) Qty: 20 0RF cyclobenzaprine 10 mg tablet 10 mg PO TID PRN (Reason: muscle spasm) Qty: 30 0RF hyoscyamine sulfate [Levsin] 0.125 mg tablet 0.125 mg sublingual Q6H PRN (Reason: dyspepsia) Qty: 14 0RF sucralfate [Carafate] 1 gram tablet 1 g PO Q6H Qty: 20 2RF ondansetron HCl [Zofran] 4 mg tablet 4 mg PO Q6H PRN (Reason: nausea and vomiting) Qty: 10 2RF omeprazole 40 mg capsule,delayed release(DR/EC) 40 mg PO DAILY Qty: 14 2RF Rx Instructions: For stomach acetaminophen [Tylenol] 325 mg Tablet 325 - 650 mg PO QID PRN (Reason: Pain) 0RF hydroxychloroquine 200 mg tablet 200 mg PO BID 0RF Discharge Orders: Discharge ED (Routine); Ordered 10/26/21 Ordered By: Grover Mora Referrals: Marie Torres PA [Primary Care Provider] - Discharge Diet: Advance as tolerated Discharge Activity: Increase activity as tolerated Patient Instructions: Opioid Safety Activity Restrictions/Additional Instructions: PatientContinue your usual medications. You may use the for nausea. It is important that you keep well-hydrated drinking 6-8 glasses of water or sports drinks etc. daily. If your symptoms persist for more than 48 hours, worsen or new symptoms develop return to this or the nearest emergency department for reevaluation. You may need additional testing. Coding Level of Care Code ED Blind Cleaner for Salvador Hanna
== END 2021-10-26 15:30 | disposition home or self-care (01) ==
PROVIDERS: Physician Assistant; Emergency Provider Emergency Medicine; PCP Physician Assistant
DX: B34.9 Viral infection, unspecified (principal); Z20.822 Contact with and (suspected) exposure to COVID-19; Z87.891 Personal history of nicotine dependence
CPT/HCPCS: 71045; 87426; 87804; 99282

== ENCOUNTER → 2021-11-14 11:54 | Outpatient (BNVA) | payer MEDICARE, OTHER, SELFPAY | PROVIDERS: PCP Physician Assistant; Visit Provider Social Worker | DX: F41.9 Anxiety disorder, unspecified (principal); F43.10 Post-traumatic stress disorder, unspecified; F33.2 Major depressive disorder, recurrent severe without psychotic features; F41.1 Generalized anxiety disorder | CPT/HCPCS: 90837; 90834 ==

== ENCOUNTER → 2021-11-28 12:05 | Outpatient (BNVA) | payer MEDICARE, OTHER, SELFPAY | PROVIDERS: PCP Physician Assistant; Visit Provider Social Worker | DX: F41.9 Anxiety disorder, unspecified (principal); F33.2 Major depressive disorder, recurrent severe without psychotic features; F41.1 Generalized anxiety disorder; F43.12 Post-traumatic stress disorder, chronic | CPT/HCPCS: 90837; 90834 ==

== ENCOUNTER → 2021-12-06 10:14 | Outpatient (BNVA) | payer MEDICARE, OTHER, SELFPAY | PROVIDERS: PCP Physician Assistant; Visit Provider Psychiatry & Neurology Psychiatry | DX: F41.1 Generalized anxiety disorder (principal); F33.2 Major depressive disorder, recurrent severe without psychotic features; F43.12 Post-traumatic stress disorder, chronic; F17.200 Nicotine dependence, unspecified, uncomplicated; F10.21 Alcohol dependence, in remission | CPT/HCPCS: 99214 ==

== ENCOUNTER → 2021-12-08 08:16 | Outpatient (BNVA) | payer MEDICARE, OTHER, SELFPAY | PROVIDERS: PCP Physician Assistant; Visit Provider Specialist | DX: G40.209 Localization-related (focal) (partial) symptomatic epilepsy and epileptic syndromes with complex partial seizures, not intractable, without status epilepticus (principal); G43.711 Chronic migraine without aura, intractable, with status migrainosus; F43.12 Post-traumatic stress disorder, chronic; F17.210 Nicotine dependence, cigarettes, uncomplicated | CPT/HCPCS: 99213; 99214 ==

== ENCOUNTER → 2021-12-27 11:55 | Outpatient (BNVA) | payer MEDICARE, OTHER, SELFPAY | PROVIDERS: PCP Physician Assistant; Visit Provider Social Worker | DX: F43.12 Post-traumatic stress disorder, chronic (principal) | CPT/HCPCS: 90837; 90834 ==

== ENCOUNTER → 2022-01-25 10:51 | Outpatient (BNVA) | payer MEDICARE, OTHER, SELFPAY | PROVIDERS: PCP Physician Assistant; Visit Provider Social Worker | DX: F43.12 Post-traumatic stress disorder, chronic (principal); F41.9 Anxiety disorder, unspecified | CPT/HCPCS: 90834 ==

== ENCOUNTER → 2022-02-06 12:09 | Outpatient (BNVA) | payer MEDICARE, OTHER, SELFPAY | PROVIDERS: PCP Physician Assistant; Visit Provider Social Worker | DX: F43.12 Post-traumatic stress disorder, chronic (principal); F41.9 Anxiety disorder, unspecified | CPT/HCPCS: 90837; 90834 ==

== ENCOUNTER → 2022-02-20 11:50 | Outpatient (BNVA) | payer MEDICARE, OTHER, SELFPAY | PROVIDERS: PCP Physician Assistant; Visit Provider Social Worker | DX: F41.1 Generalized anxiety disorder (principal); F33.2 Major depressive disorder, recurrent severe without psychotic features; F43.10 Post-traumatic stress disorder, unspecified | CPT/HCPCS: 90837; 90834 ==

== ENCOUNTER → 2022-02-28 11:08 | Outpatient (BNVA) | payer MEDICARE, OTHER, SELFPAY | PROVIDERS: PCP Physician Assistant; Visit Provider Psychiatry & Neurology Psychiatry | DX: F41.1 Generalized anxiety disorder (principal); F33.2 Major depressive disorder, recurrent severe without psychotic features; F43.12 Post-traumatic stress disorder, chronic; F10.21 Alcohol dependence, in remission | CPT/HCPCS: 99214 ==

== ENCOUNTER → 2022-03-07 14:03 | Outpatient (BNVA) | payer MEDICARE, OTHER, SELFPAY | PROVIDERS: PCP Physician Assistant; Visit Provider Social Worker | DX: F43.12 Post-traumatic stress disorder, chronic (principal); F33.2 Major depressive disorder, recurrent severe without psychotic features; F41.1 Generalized anxiety disorder | CPT/HCPCS: 90837; 90834 ==

== ENCOUNTER 2022-03-08 12:14 | Emergency (ER) | payer MEDICARE, OTHER, SELFPAY ==
[2022-03-08 12:23] VITALS: BP 134/83; PULSE 88; RESP 14; TEMP 37.4; O2SAT 96; BMI 29.2
--- NOTE | 2022-03-08 13:10 | XR_ITS ---
WS: [id number] Exam: XR chest 1V portable [id number] Date/Time of Exam: 03/08/2022 1:19 PM Reason For Exam: chest pain Comparison 10/26/2021. There are mild groundglass bibasal pulmonary infiltrates. Remaining lung sullivan are clear. No pneumot horax. No pleural effusion. Normal cardiomediastinal silhouette. Bony structures are intact. XR/XR chest 1V portable [id number] IMPRESSION: 1. Mild groundglass bibasal infiltrates suggesting pneumonia.
--- NOTE | 2022-03-08 19:10 | ECG_ITS ---
[facility] Test Date: 2022-03-08 Pat Name: Olga Lidia Villagomez Department: Room: Gender: Female [employer] Department Chair: : 1965 Requested By: Era Lee Order Number: [id number] Choudhary MD: Soo Salgado M.D. Measurements Intervals [place] Rate: 91 P: 48 AR: 171 QRS: 7 QRSD: 88 T: 54 QT: 348 QTc: 429 Interpretive Statements SINUS RHYTHM Compared to ECG 04/04/2021 14:33:12 Sinus bradycardia no longer present Electronically Signed On 03-08-2022 20:19:50 CDT by Soo Salgado M.D. [id number]
== END 2022-03-08 15:06 | disposition left against medical advice (07) ==
PROVIDERS: Emergency Provider Family Medicine; PCP Physician Assistant
DX: Z53.21 Procedure and treatment not carried out due to patient leaving prior to being seen by health care provider (principal); R07.9 Chest pain, unspecified
CPT/HCPCS: 71045; 93005

== ENCOUNTER → 2022-05-17 14:52 | Outpatient (BNVA) | payer MEDICARE, OTHER, SELFPAY | PROVIDERS: PCP Physician Assistant; Visit Provider Obstetrics & Gynecology | DX: Z01.419 Encounter for gynecological examination (general) (routine) without abnormal findings (principal) | CPT/HCPCS: 87624 ==

== ENCOUNTER → 2022-06-13 10:05 | Outpatient (BNVA) | payer MEDICARE, OTHER, SELFPAY | PROVIDERS: PCP Physician Assistant; Visit Provider Specialist | DX: G40.209 Localization-related (focal) (partial) symptomatic epilepsy and epileptic syndromes with complex partial seizures, not intractable, without status epilepticus (principal); G43.711 Chronic migraine without aura, intractable, with status migrainosus; F43.12 Post-traumatic stress disorder, chronic; F33.2 Major depressive disorder, recurrent severe without psychotic features | CPT/HCPCS: 99213; 99214 ==

== ENCOUNTER 2023-03-02 17:31 | Emergency (ER) | payer MEDICARE, OTHER, SELFPAY ==
[2023-03-02 17:38] VITALS: BP 142/76; PULSE 91; RESP 16; TEMP 36.8; O2SAT 95
--- NOTE | 2023-03-02 18:11 | CTR_ITS ---
PROCEDURE INFORMATION: Exam: CT Abdomen And Pelvis Without Contrast Exam date and time: 03/02/2023 6:25 PM Age: 57 years old Clinical indication: Abdominal pain; Right; Prior surgery; Surgery date: 6+ months; Surgery type: Gb. Hysterectomy; Patient HX: C/O RT flank pain. ; Additional info: Right flank pain TECHNIQUE: Imaging protocol: Computed tomography of the abdomen and pelvis without contrast. Radiation optimization: All CT scans at this facility use at least one of these dose optimization techniques: automated exposure control; mA and/or kV adjustment per patient size (includes targeted exams where dose is matched to clinical indication); or iterative reconstruction. REPORTING DATA: Count of CT and Cardiac NM exams in prior 12 months: This patient has received 0 known CTs and 0 known cardiac nuclear medicine studies in the 12 months prior to the current study. COMPARISON: DX XR abdomen 1V* [id number] 08/11/2019 1:02 PM RADIATION DOSE METRICS: Total DLP (mGy-cm): 734.33 FINDINGS: Lungs: 6 mm lingular nodule. Left lower lobe calcified granuloma. Basilar atelectasis. Small posterior left intercostal pulmonary hernia. Liver: Normal. No mass. Gallbladder and bile ducts: Cholecystectomy. The bile ducts are normal. Pancreas: Normal. No ductal dilation. Spleen: Normal. No splenomegaly. Adrenal glands: Normal. No mass. Kidneys and ureters: Normal. No hydronephrosis. Stomach and bowel: Mild submucosal fatty deposition in the colon. No pathologic wall thickening visualized. Partial resection of the distal small bowel. The stomach and small bowel are otherwise unremarkable. No wall thickening or obstruction. Appendix: The appendix is visualized and is normal. Intraperitoneal space: Unremarkable. No free air. No significant fluid collection. Vasculature: Mild arterial calcifications. No aneurysm. Lymph nodes: Unremarkable. No enlarged lymph nodes. Urinary bladder: Unremarkable as visualized. Reproductive: The uterus and ovaries are absent. Bones/joints: Mild degenerative changes of the spine. No acute fracture. Soft tissues: Unremarkable. CT/CT kidney stone [id number] IMPRESSION: 1. No acute findings. 2. 6 mm left pulmonary nodule. For patients at low risk (minimal or absent history of smoking and of other known risk factors), recommend CT Chest at 6-12 months, then consider CT Chest at 18-24 months. For patients at high risk (history of smoking or of other known risk factors), recommend CT Chest at 6-12 months, then CT Chest at 18-24 months. (Reference: Silvia) References: Silvia Acevedo, et al. Guidelines for Management of Incidental Pulmonary Nodules Detected on CT Images: From the Fleischner Society 2017. Radiology. 2017;284(1):228-243.
--- NOTE | 2023-03-02 18:11 | W.ED.BACK ---
HPI - Back Pain/Injury General: Chief Complaint: Back Pain/Injury Stated Complaint: low back pain sent byP Time Seen by Provider: 03/02/23 17:48 Source: patient Mode of arrival: ambulatory Limitations: no limitations History of Present Illness: Patient makes her way to the emergency department today by private vehicle. She has had waxing and waning right flank pain since approximately Sunday timeframe. Was thought that she had a kidney stone at that time and she says she thinks she passed a kidney stone. She states she felt some better for a day or so but the symptoms have gradually increased since that time. She has had low-grade subjective fever but no objective elevation in temperature. She has been nauseated but no vomiting or diarrhea. She has had a prior hysterectomy but no other abdominal surgeries. She has had occasional UTIs in the past but they have not been like this. She denies any ripping tearing, pain states it is a crampy kind of pain. She states she had a normal bowel movement today. She had a colonoscopy a week ago or so and still has some will rectal bleeding. There is been no falls or injury. Pertinent past history: kidney stones Quality: dull and aching Associated symptoms: Reports nausea; Deny chills, fever(s) or vomiting Review of Systems Const: Denies: fever(s) or chills Eyes: Denies: change in vision ENMT: Denies: odynophagia, nasal discharge or nasal congestion Card: Denies: chest pain, palpitations or irregular heart rhythm Resp: Denies: dyspnea, productive cough or non-productive cough GI: Reports: nausea; Denies: vomiting, hematemesis, diarrhea, hematochezia or melena : Reports: flank pain and urinary frequency; Denies: vaginal bleeding or vaginal discharge Musc: Reports: back pain; Denies: neck pain, extremity pain or extremity swelling Skin/Breast: Denies: rash Neuro: Denies: headache(s), numbness in extremities or weakness in extremities Psych: Denies: anxiety PFSH ED PFSH: Medical History SUSY positive Arthralgia Fatigue Psychiatric care Family History Sister Breast cancer Diabetes Hypercholesteremia Stroke Mother Breast cancer Grandfather Diabetes Grandmother Stroke Denies family history of Colon cancer Ovarian cancer Heart disease Hypertension Uterine cancer Thyroid disease Social History Smoking and tobacco status: current every day smoker Quit status (tobacco): has tried quititng Number of times tried to quit tobacco: 5 Second hand smoke exposure: Yes Smoking risk assessment/counseling performed?: No Alcohol intake: former Desire information about alcohol rehabilitation?: No Counseling given: No Substance/Drug Use: former Desire information about substance/drug rehabilitation?: No Counseling given: No Do you think of yourself as: Straight/Heterosexual Physical Exam Narrative: EXAM NARRATIVE: The patient is alert and in no acute distress. She answers questions appropriately in a goal-directed fashion. She makes good eye contact. Const: COMMON NORMALS: no acute distress, average body habitus and patient oriented x3 GENERAL APPEARANCE: cooperative and comfortable HENMT: COMMON NORMALS: normocephalic, Normal nasal mucous membranes and turbinates present, moist oral mucous membranes and oropharynx normal HEAD & SCALP: normocephalic NOSE: Normal nasal mucous membranes and turbinates present Eye: COMMON NORMALS: Equal, round and reactive pupils present and EOMs intact bilaterally PUPIL: Yes Equal, round and reactive pupils present Neck/C-Spine: COMMON NORMALS: full ROM, no lymphadenopathy and no JVD Chest: COMMONS NORMALS: normal inspection of the chest Resp: COMMON NORMALS: normal respiratory effort, No use of accessory muscles and clear to auscultation bilaterally AUSCULTATION: clear to auscultation bilaterally Cardio: COMMON NORMALS: no JVD, regular rate, No murmurs present (Cardio) and Peripheral pulses 2+ throughout RATE: regular rate PERIPHERAL PULSES: Peripheral pulses 2+ throughout GI: PALPATION: Yes Tenderness to palpation present (GI) (Right abdomen right flank no ecchymosis, no masses no peritoneal signs.) : BLADDER/KIDNEY EXAM: Yes CVA tenderness Back/Pelvis: COMMON NORMALS: thoracic and lumbar spine normal to inspection, thoraco-lumbar ROM normal and straight leg raise negative bilaterally GENERAL BACK: Yes CVA tenderness CVA tenderness: right Extremity: COMMON NORMALS: normal to inspection, full ROM, no calf tenderness and no pedal edema Neuro: COMMON NORMALS: patient oriented x3, moves all extremities, no focal motor deficits and no sensory deficits noted CRANIAL NERVES: Yes CN normal except as noted Psych: COMMON NORMALS: mental status grossly normal Skin: COMMON NORMALS: no rashes or lesions noted, no wounds and turgor normal GENERAL SKIN EXAM: no rashes or lesions noted and turgor normal Course Reevaluation(s): Reevaluation #1: Patient remained stable. Actually she states that she is markedly improved after receiving Toradol. No other new or focal findings on reexamination. Discussed current findings their implications and limitations and the lack of any evidence of serious condition at this time. Stable for discharge. Time: 20:59 Vital Signs: Vital signs: Vital Signs Temperature 98.2 F 03/02/23 17:38 Pulse Rate 68 03/02/23 20:02 Respiratory Rate 16 03/02/23 20:02 Blood Pressure 153/87 03/02/23 20:02 Pulse Oximetry 91 03/02/23 20:02 Oxygen Delivery Me thod Room Air 03/02/23 17:38 MDM - Back Pain/Injury Medical Decision Making Patient return to the emergency department because of right-sided flank and back pain. She had had a kidney stone earlier this week and apparently by history had spontaneously passed the stone. She did not have any subsequent fevers hematuria etc. She stated that she was having colic here spasmy type right flank pain that had worsened today. She was unaware of any lifting twisting turning bending injuries etc. No other symptoms to include fever nausea vomiting diarrhea etc. Clinical examination revealed her to be slightly uncomfortable with tenderness in the right paravertebral muscle in the right CVA area. Some exacerbation of symptoms with twisting and turning of her trunk. There was no peritoneal signs or guarding or other significant abdominal findings on exam. Work-up ensued to ensure no evidence of urinary tract infection, retained stone or other intra-abdominal process that could be contributing to her presentation. Ancillary studies revealed a reassuring CT scan without any evidence of hydronephrosis, ureteral stone etc. No other intra-abdominal process such as bowel obstruction etc. were also noted. Urinalysis was reassuring without any evidence of infection. And other laboratories were also normal. She received symptomatic treatment and was markedly improved. Is not clear whether she has some residual renal colic versus a musculoskeletal etiology but certainly does not have any evidence at this time of an ongoing emergency medical condition. She was informed of the findings and their implications and limitations. She will be discharged in a stable condition with return precautions and primary care follow-up. Labs I reviewed the patient's lab results. 03/02/23 18:48 03/02/23 18:48 Radiology Impressions Abdomen/Pelvis CT 03/02/23 18:11 IMPRESSION: 1. No acute findings. 2. 6 mm left pulmonary nodule. For patients at low risk (minimal or absent history of smoking and of other known risk factors), recommend CT Chest at 6-12 months, then consider CT Chest at 18-24 months. For patients at high risk (history of smoking or of other known risk factors), recommend CT Chest at 6-12 months, then CT Chest at 18-24 months. (Reference: Silvia) References: Silvia Acevedo, et al. Guidelines for Management of Incidental Pulmonary Nodules Detected on CT Images: From the Fleischner Society 2017. Radiology. 2017;284(1):228-243. Laboratory Results WBC 7.1 10^3/uL (4.0-10.0) 03/02/23 18:48 RBC 4.71 10^6/uL (4.1-5.3) 03/02/23 18:48 Hgb 14.3 g/dL (11.5-15.3) 03/02/23 18:48 Hct 42.3 % (37.0-47.0) 03/02/23 18:48 MCV 89.8 fl (81-99) 03/02/23 18:48 MCH 30.4 pg (28.0-34.0) 03/02/23 18:48 MCHC 33.8 g/dL (30.0-36.0) 03/02/23 18:48 RDW 12.8 % (12.1-15.1) 03/02/23 18:48 Plt Count 178 10^3/cmm (130-400) 03/02/23 18:48 MPV 12.5 fL (7.4-10.4) H 03/02/23 18:48 Neut % (Auto) 56.3 % 03/02/23 18:48 Lymph % (Auto) 32.3 % 03/02/23 18:48 Colbert % (Auto) 7.0 % 03/02/23 18:48 Eos % (Auto) 2.8 % 03/02/23 18:48 Baso % (Auto) 1.3 % 03/02/23 18:48 Neut # (Auto) 4.02 10^3/uL (1.8-7.7) 03/02/23 18:48 Lymph # (Auto) 2.3 10^3/uL (0.8-4.8) 03/02/23 18:48 Colbert # (Auto) 0.5 10^3/uL (0.2-0.9) 03/02/23 18:48 Eos # (Auto) 0.2 10^3/uL (0.0-0.8) 03/02/23 18:48 Baso # (Auto) 0.1 10^3/uL (0.0-0.1) 03/02/23 18:48 Nucleated RBC % (auto) 0 % 03/02/23 18:48 Nucleated RBCs # 0.0 /100WBC 03/02/23 18:48 Sodium 141 mmol/L (136-145) 03/02/23 18:48 Potassium 3.3 mmol/L (3.5-5.1) L 03/02/23 18:48 Chloride 107 mmol/L (98-107) 03/02/23 18:48 Carbon Dioxide 23 mmol/L (22-29) 03/02/23 18:48 Anion Gap 14.3 (5-19) 03/02/23 18:48 BUN 9 mg/dL (6-20) 03/02/23 18:48 Creatinine 0.6 mg/dL (0.5-0.9) 03/02/23 18:48 GFR Calculation 103.4 mL/min (90-130) 03/02/23 18:48 Glucose 91 mg/dL (65-115) 03/02/23 18:48 Calculated Osmolality 290 mOsm/kg (285-295) 03/02/23 18:48 Calcium 8.5 mg/dL (8.5-10.5) 03/02/23 18:48 Total Bilirubin 0.2 mg/dL (0.15-1.2) 03/02/23 18:48 AST 13 U/L (0-32) 03/02/23 18:48 ALT 11 U/L (0-33) 03/02/23 18:48 Alkaline Phosphatase 92 U/L (35-105) 03/02/23 18:48 Total Protein 6.7 g/dL (6.6-8.7) 03/02/23 18:48 Albumin 4.0 g/dL (3.5-5.2) 03/02/23 18:48 Globulin 2.7 g/dL (1.3-4.6) 03/02/23 18:48 Urine Color Yellow (Yellow) 03/02/23 19:17 Urine Appearance Clear (CLEAR) 03/02/23 19:17 Urine pH 5 (5-7) 03/02/23 19:17 Ur Specific [place] 1.030 (1.005-1.030) 03/02/23 19:17 Urine Protein Neg (Negative) 03/02/23 19:17 Urine Glucose (UA) Norm (Normal) 03/02/23 19:17 Urine Ketones Negative (Negative) 03/02/23 19:17 Urine Blood Neg (Negative) 03/02/23 19:17 Urine Nitrate Negative (Negative) 03/02/23 19:17 Urine Bilirubin Neg (Negative) 03/02/23 19:17 Urine Urobilinogen Norm mg/dL (Negative) 03/02/23 19:17 Ur Leukocyte Esterase Negative (Negative) 03/02/23 19:17 Discharge Plan Discharge Patient Disposition: Home Clinical Impression: Right flank pain, Multiple lung nodules Condition: Stable Prescriptions: New Levsin 0.125 mg tablet 0.125 mg PO Q8H PRN (Reason: renal colic) Qty: 20 0RF No Action cyclobenzaprine 10 mg tablet 10 mg PO TID PRN (Reason: muscle spasm) propranolol 20 mg tablet 20 mg PO BID 30 Days Qty: 60 3RF Emgality Syringe 120 mg/mL syringe 240 mg SUBCUT ONCE 30 Days Qty: 60 0RF Rx Instructions: Loading dose Emgality Syringe 120 mg/mL syringe 120 mg SUBCUT ONCE 30 Days Qty: 30 6RF levetiracetam 750 mg tablet extended release 24 hr 1,500 mg PO DAILY Qty: 180 3RF cholecalciferol (vitamin D3) 25 mcg (1,000 unit) capsule 25 mcg PO DAILY Qty: 30 1RF mecobalamin (vitamin B12) 1,000 mcg tablet,chewable 1,000 mcg PO DAILY Qty: 30 0RF amitriptyline 100 mg tablet 100 mg PO DAILY Qty: 30 2RF buspirone 10 mg tablet 20 mg PO BID Qty: 120 2RF prazosin 1 mg capsule 3 mg PO BEDTIME@2100 Qty: 90 2RF quetiapine [Seroquel] 100 mg tablet 100 mg PO .HS Qty: 30 2RF sertraline 100 mg tablet 200 mg PO DAILY Qty: 60 2RF hydrocodone-acetaminophen 5-325 mg tablet 1 tab PO DAILY PRN hydroxyzine HCl 50 mg tablet 50 mg PO QID PRN (Reason: insomnia/anxiety) Qty: 120 2RF budesonide [Pulmicort] 0.5 mg/2 mL suspension for nebulization 0.25 mg inhalation BID Qty: 60 5RF formoterol fumarate [Perforomist] 20 mcg/2 mL solution for nebulization 2 ml inhalation BID Qty: 120 5RF metronidazole 500 mg tablet 500 mg PO BID Qty: 14 0RF cephalexin 500 mg capsule 500 mg PO TID Qty: 30 0RF sucralfate [Carafate] 1 gram tablet 1 g PO Q6H Qty: 20 2RF ondansetron HCl [Zofran] 4 mg tablet 4 mg PO Q6H PRN (Reason: nausea and vomiting) Qty: 10 2RF omeprazole 40 mg capsule,delayed release(DR/EC) 40 mg PO DAILY Qty: 14 2RF Rx Instructions: For stomach acetaminophen [Tylenol] 325 mg Tablet 325 - 650 mg PO QID PRN (Reason: Pain) hydroxychloroquine 200 mg tablet 200 mg PO BID Reglan 5 mg tablet 5 mg PO BID Qty: 10 0RF Discharge Orders: Discharge ED (Routine); Ordered 03/02/23 Ordered By: Grover Mora Referrals: Marie Torres PA [Primary Care Provider] - 1 week Discharge Diet: Usual diet Discharge Activity: Increase activity as tolerated Patient Instructions: Opioid Safety, Pain Management Activity Restrictions/Additional Instructions: As we discussed your evaluation in the emergency department was reassuring and that there is no evidence of kidney infection ongoing stone at this time. You have some flank pain which may represent some irritation from your previous past stone versus musculoskeletal back pain. No evidence of other more serious condition at this time however reevaluation is necessary should you develop persistent or worsening symptoms. He also has some incidental findings of nodules in your lungs on your CT scan. This should be reevaluated in 6 to 12 months. Your primary care clinic should receive information regarding this condition. Coding Level of Care Code ED Study Coordinator for Salvador Hanna
[2023-03-02] MEDS: ondansetron 2 mg/ML SDV 2 mL 4 MG IVP (19:14)
[2023-03-02] MEDS: sodium chloride 0.9% 1,000 ML 999 ML IV (19:14)
[2023-03-02 19:18] LABS: Basophils # 0.1 10^3/uL (0.0-0.1); Basophils % 1.3 %; Eosinophils # 0.2 10^3/uL (0.0-0.8); Eosinophils % 2.8 %; Hematocrit 42.3 % (37.0-47.0); Hemoglobin 14.3 g/dL (11.5-15.3); Lymphocytes # 2.3 10^3/uL (0.8-4.8); Lymphocytes % 32.3 %; Mean Corpuscular HGB Conc 33.8 g/dL (30.0-36.0); Mean Corpuscular Hemoglobin 30.4 pg (28.0-34.0); Mean Corpuscular Volume 89.8 fl (81-99); Mean Platelet Volume 12.5 fL (7.4-10.4); Monocytes # 0.5 10^3/uL (0.2-0.9); Neutrophils # 4.02 10^3/uL (1.8-7.7); Neutrophils % 56.3 %; Nucleated Red Blood Cells % 0 %; Platelet Count 178 10^3/cmm (130-400); Red Blood Count 4.71 10^6/uL (4.1-5.3); Red Cell Distribution Width 12.8 % (12.1-15.1); White Blood Count 7.1 10^3/uL (4.0-10.0)
[2023-03-02 19:24] LABS: Add Urine Microscopic? NO; Charge for UA Resulting for Rev
[2023-03-02 19:33] LABS: Bilirubin Urine Neg (Negative); Blood Urine Neg (Negative); Glucose Urine UA Norm (Normal); Ketones Urine Negative (Negative); Leukocyte Esterase Urine Negative (Negative); Nitrate Urine Negative (Negative); Protein Urine Neg (Negative); Urine Appearance Clear (CLEAR); Urine Color Yellow (Yellow); Urobilinogen Urine Norm (Negative); pH Urine 5 (5-7)
[2023-03-02] MEDS: ketorolac 30 mg/mL INJ 15 MG IVP (19:34)
[2023-03-02 19:36] VITALS: PULSE 75; RESP 16; O2SAT 96
[2023-03-02 19:38] LABS: Alanine Aminotransferase 11 U/L (0-33); Alkaline Phosphatase 92 U/L (35-105); Anion Gap 14.3 (5-19); Aspartate Amino Transferase 13 U/L (0-32); Blood Urea Nitrogen 9 mg/dL (6-20); Calcium 8.5 mg/dL (8.5-10.5); Carbon Dioxide 23 mmol/L (22-29); Chloride 107 mmol/L (98-107); Globulin 2.7 g/dL (1.3-4.6); Glomerular Filtration Rate 103.4 mL/min (90-130); Glucose 91 mg/dL (65-115); Osmolality Calculated 290 mOsm/kg (285-295); Potassium 3.3 mmol/L (3.5-5.1); Sodium 141 mmol/L (136-145); Total Bilirubin 0.2 mg/dL (0.15-1.2); Total Protein 6.7 g/dL (6.6-8.7)
[2023-03-02 20:02] VITALS: BP 153/87; PULSE 68; RESP 16; O2SAT 91
[2023-03-02] MEDS: hyoscyamine ODT 0.125 mg Tablet PO (21:23)
[2023-03-02 21:27] VITALS: BP 153/87; PULSE 68; RESP 16; TEMP 36.8; O2SAT 91
== END 2023-03-02 21:28 | disposition home or self-care (01) ==
PROVIDERS: Emergency Provider Emergency Medicine; PCP Physician Assistant
DX: M54.50 Low back pain, unspecified (principal); R91.8 Other nonspecific abnormal finding of lung field; F17.210 Nicotine dependence, cigarettes, uncomplicated
CPT/HCPCS: 74176; 80053; 81003; 85025; 96361; 96374; 96375; 99285; J1885; J2405; J7030

== ENCOUNTER → 2023-03-21 14:26 | Outpatient (BNVA) | payer MEDICARE, OTHER, SELFPAY | PROVIDERS: PCP Physician Assistant; Visit Provider Specialist | DX: G40.209 Localization-related (focal) (partial) symptomatic epilepsy and epileptic syndromes with complex partial seizures, not intractable, without status epilepticus (principal); F43.12 Post-traumatic stress disorder, chronic; F33.2 Major depressive disorder, recurrent severe without psychotic features; G43.711 Chronic migraine without aura, intractable, with status migrainosus | CPT/HCPCS: G0463 ==

== ENCOUNTER → 2023-04-10 14:17 | Outpatient (BNVA) | payer MEDICARE, OTHER, SELFPAY | PROVIDERS: PCP Physician Assistant; Visit Provider Internal Medicine Pulmonary Disease | DX: J44.0 Chronic obstructive pulmonary disease with (acute) lower respiratory infection (principal); F17.210 Nicotine dependence, cigarettes, uncomplicated; M35.1 Other overlap syndromes; R76.8 Other specified abnormal immunological findings in serum; R91.8 Other nonspecific abnormal finding of lung field; F43.10 Post-traumatic stress disorder, unspecified; F41.9 Anxiety disorder, unspecified | CPT/HCPCS: 99214 ==

== ENCOUNTER 2023-04-24 13:38 | Outpatient (CLI) | payer MEDICARE, OTHER, SELFPAY ==
--- NOTE | 2023-04-24 14:30 | CT_ITS ---
WS: [id number] LDCT LUNG CANCER SCREENING HISTORY: Cancer screen TECHNIQUE: Axial imaging performed from the apices to 1 cm below the costophrenic angles. Coronal and sagittal reformats are submitted with axial MIP series. All CT scans at [facility] use at least one of these dose optimization techniques: automated exposure control; mA and/or kV adjustment per patient size (includes targeted exams where dose is matched to clinical indication); or iterativ e reconstruction. DLP: 63.91 mGy.cm DIvol: Mean CTDIvol: 1.50 (mGy) COMPARISON: 05/25/2021 Diagnostic quality: Satisfactory Lungs: There are a few scattered micronodules throughout both lungs with mild hazy attenuation. Simil ar findings on the study from 05/25/2021. No new or increasing nodule. Benign granuloma RIGHT upper lo be. No pneumonia. No endobronchial lesions. Heart: Normal size heart with no pericardial effusion.. Other findings: Mild atherosclerosis aorta. No coronary artery calcifications. Prior cholecystectomy. CT/CT lung screening [id number] IMPRESSION: LUNG-RADS: 2-Benign Appearance or Behavior FOLLOW UP: 12 Month: Continue annual screening with LDCT OTHER FINDINGS (S MODIFIER): None.
== END 2023-04-24 13:39 | disposition home or self-care (01) ==
PROVIDERS: PCP Physician Assistant; Visit Provider Internal Medicine Pulmonary Disease
DX: Z12.2 Encounter for screening for malignant neoplasm of respiratory organs (principal); F17.210 Nicotine dependence, cigarettes, uncomplicated
CPT/HCPCS: 71271

== ENCOUNTER → 2023-07-05 08:38 | Outpatient (BNVA) | payer MEDICARE, OTHER, SELFPAY | PROVIDERS: PCP Physician Assistant; Visit Provider Psychiatry & Neurology Neurology | DX: G40.219 Localization-related (focal) (partial) symptomatic epilepsy and epileptic syndromes with complex partial seizures, intractable, without status epilepticus (principal); G43.711 Chronic migraine without aura, intractable, with status migrainosus; Z48.89 Encounter for other specified surgical aftercare; R53.83 Other fatigue; Z79.899 Other long term (current) drug therapy; Z82.49 Family history of ischemic heart disease and other diseases of the circulatory system; G43.011 Migraine without aura, intractable, with status migrainosus; R51.9 Headache, unspecified; F17.210 Nicotine dependence, cigarettes, uncomplicated | CPT/HCPCS: 99204 ==

== ENCOUNTER 2023-07-09 08:30 | Outpatient (CLI) | payer MEDICARE, OTHER, SELFPAY ==
[2023-07-09 09:26] LABS: Basophils # 0.1 10^3/uL (0.0-0.1); Basophils % 1.7 %; Eosinophils # 0.2 10^3/uL (0.0-0.8); Eosinophils % 3.3 %; Hematocrit 43.1 % (36-47); Lymphocytes # 1.6 10^3/uL (0.8-4.8); Lymphocytes % 26.4 %; Mean Corpuscular HGB Conc 33.6 g/dL (30-55); Mean Corpuscular Hemoglobin 30.9 pg (27-33); Mean Corpuscular Volume 91.7 fl (85-98); Monocytes # 0.4 10^3/uL (0.2-0.9); Monocytes % 6.6 %; Neutrophils # 3.74 10^3/uL (1.8-7.7); Neutrophils % 61.7 %; Nucleated Red Blood Cells % 0 %; Platelet Count 223 10^3/cmm (157-399); Red Cell Distribution Width 12.5 % (12.1-15.1); White Blood Count 6.06 10^3/uL (3.29-11.43)
[2023-07-09 10:01] LABS: Folate Level 8.4 ng/mL (4.8-37.3)
[2023-07-09 10:06] LABS: 25 Hydroxy Vitamin D 18 ng/mL (30-100); Alanine Aminotransferase 11 U/L (0-33); Albumin Level 3.9 g/dL (3.5-5.2); Alkaline Phosphatase 98 U/L (35-105); Aspartate Amino Transferase 13 U/L (0-32); Blood Urea Nitrogen 10 mg/dL (6-20); Calcium 9.2 mg/dL (8.5-10.5); Carbon Dioxide 25 mmol/L (22-29); Chloride 104 mmol/L (98-107); Globulin 3.1 g/dL (1.3-4.6); Glomerular Filtration Rate 74.2 mL/min (90-130); Glucose 85 mg/dL (65-115); Magnesium 2.2 mg/dL (1.7-2.3); Osmolality Calculated 278 mOsm/kg (285-295); Sodium 135 mmol/L (136-145); Thyroid Stimulating Hormone 1.46 uIU/mL (0.27-4.20); Total Bilirubin 0.3 mg/dL (0.15-1.2)
[2023-07-09 12:35] LABS: Free T4 Free Thyroxine 1.17 ng/dL (0.82-1.77); T3 Free 2.7 PG/ML (2.0-4.4)
[2023-07-10 07:20] LABS: Vitamin B12 (Cobalamin) 375 pg/mL (200-1100)
[2023-07-10 10:53] LABS: Levetiracetam Immunoassy 26.5 mcg/mL (6.0-46.0)
[2023-07-11 21:55] LABS: Methylmalonic Acid 125 nmol/L (87-318)
== END 2023-07-09 08:31 | disposition home or self-care (01) ==
PROVIDERS: PCP Physician Assistant; Visit Provider Psychiatry & Neurology Neurology
DX: G43.711 Chronic migraine without aura, intractable, with status migrainosus (principal); Z48.89 Encounter for other specified surgical aftercare; R53.83 Other fatigue; Z79.899 Other long term (current) drug therapy; R56.9 Unspecified convulsions
CPT/HCPCS: 36415; 80053; 80177; 82306; 82607; 82746; 83735; 83921; 84439; 84443; 84481; 85025

== ENCOUNTER 2023-08-03 08:47 | Outpatient (CLI) | payer MEDICARE, OTHER, SELFPAY ==
--- NOTE | 2023-08-03 09:15 | MR_ITS ---
WS: [id number] MRA ANGIOGRAPHY [place] HISTORY: G43.711 - Chronic migraine without aura, intractable, wit... COMPARISON: None available. TECHNIQUE: 3-D MR angiography is performed of the [place]. All images are reviewed including source images. Distal vertebral and basilar arteries are intact with no significant stenosis or plaque. Posterior ce rebral arteries are normal course and caliber. Posterior communicating arteries are both patent. Intracranial portion of the internal carotid arteries are normal course and caliber. No significant a therosclerosis, stenosis or aneurysm identified. Middle and anterior cerebral arteries are both paten t with no significant disease. Anterior communicating artery is also normal. IMPRESSION: Normal MRA [place].
--- NOTE | 2023-08-03 09:30 | MR_ITS ---
WS: [id number] MRI BRAIN WITH AND WITHOUT CONTRAST HISTORY: Z82.49 - Family history of ischemic heart disease . COMPARISON: CT head 05/18/2020 TECHNIQUE: Multiplanar imaging performed through the brain with MultiHance 16 ml's IV. No acute infarcts are seen. [place]-white matter differentiation is well preserved. Normal hippocampal a nd temporal lobe formations. No atrophy. No mesial temporal sclerosis. No susceptibility artifacts or prior lacunar infarcts. Ventricles and extra-axial spaces are normal. Clivus and pituitary gland are normal. Visualized posterior fossa and brainstem are also normal. Small RIGHT retrocerebellar arachnoid cyst measures 1.5 x 0.8 cm. No significant mass effect. Postcontrast images are negative for masses or vascular malformations. Dural venous sinuses are normal. Paranasal sinuses: Well aerated with no significant disease. Mastoid air cells: Normal. Calvarium and scalp: Normal. IMPRESSION: 1. No acute infarcts or prior infarcts. 2. Normal temporal lobe and hippocampal formations. 3. No prior lacunar infarcts. 4. No enhancing masses or vascular malformations.
[2023-08-03] MEDS: gadobenate dimeglumine 20 mL vial IV (09:40)
== END 2023-08-03 08:48 | disposition home or self-care (01) ==
LOC: RAD 08:48
PROVIDERS: PCP Physician Assistant; Visit Provider Psychiatry & Neurology Neurology
DX: G43.711 Chronic migraine without aura, intractable, with status migrainosus (principal); Z82.49 Family history of ischemic heart disease and other diseases of the circulatory system
CPT/HCPCS: 70544; 70553; A9577

== ENCOUNTER 2023-08-15 12:40 | Outpatient (CLI) | payer MEDICARE, OTHER, SELFPAY ==
--- NOTE | 2023-08-15 12:45 | XR_ITS ---
WS: [id number] SCREENING DEXA SCAN [facility] [place] CLINICAL INFORMATION: POSTMENOPAUSAL COMPARISON: None. FINDINGS: The L1-L4 bone mineral density measures 1.037 g/cm2. This corresponds to a T score score of -1.2 and Z score of -0.8. Left femoral neck bone mineral density measures 0.780 g/cm2. This corresponds to a T score of -1.8 an d Z score of -1.4. Right femoral neck bone mineral density measures 0.754 g/cm2. This corresponds to a T score -2.0of an d Z score of -1.6. Mean femoral neck bone mineral density measures 0.767 g/cm2. This corresponds to a T score of -1.9 an d Z score of -1.5. IMPRESSION: Osteopenia lumbar spine. Osteopenia femoral necks. Patient's FRAX calculated 10 year probability for major osteoporotic fracture is 11.6% and osteoporot ic hip fracture is 2.8%.
--- NOTE | 2023-08-15 12:59 | MM_ITS ---
WS: [id number] VIEWS: MLO and CC views both breasts. 3D digital tomosynthesis is also included in this exam. Comparison made with prior exam of 06/22/2020. Findings: There was no sign of mass, architectural distortion or suspicious calcification in either breast. The breasts are heterogeneously dense which may obscure small masses Impression: MM/[place] [id number] BI-RADS: 2-Benign finding. FOLLOW-UP: 1 Year Follow-up This mammogram was also analyzed by the Computer Aided Detection System R2 Imag e [employer].
== END 2023-08-15 12:41 | disposition home or self-care (01) ==
LOC: RAD 12:40
PROVIDERS: PCP Physician Assistant; Visit Provider Physician Assistant
DX: Z12.31 Encounter for screening mammogram for malignant neoplasm of breast (principal); Z78.0 Asymptomatic menopausal state; M85.88 Other specified disorders of bone density and structure, other site; M85.852 Other specified disorders of bone density and structure, left thigh; M85.851 Other specified disorders of bone density and structure, right thigh
CPT/HCPCS: 77063; 77067; 77080

== ENCOUNTER → 2023-08-16 07:36 | Outpatient (BNVA) | payer MEDICARE, OTHER, SELFPAY | PROVIDERS: PCP Physician Assistant; Visit Provider Psychiatry & Neurology Neurology | DX: G43.011 Migraine without aura, intractable, with status migrainosus (principal); G40.219 Localization-related (focal) (partial) symptomatic epilepsy and epileptic syndromes with complex partial seizures, intractable, without status epilepticus; G43.711 Chronic migraine without aura, intractable, with status migrainosus; G40.209 Localization-related (focal) (partial) symptomatic epilepsy and epileptic syndromes with complex partial seizures, not intractable, without status epilepticus | CPT/HCPCS: 95813; 95819 ==

== ENCOUNTER → 2023-11-06 14:28 | Outpatient (BNVA) | payer MEDICARE, OTHER, SELFPAY | PROVIDERS: PCP Physician Assistant; Visit Provider Internal Medicine Pulmonary Disease | DX: J44.1 Chronic obstructive pulmonary disease with (acute) exacerbation (principal); M35.1 Other overlap syndromes; R76.8 Other specified abnormal immunological findings in serum; F17.210 Nicotine dependence, cigarettes, uncomplicated; G47.19 Other hypersomnia; R91.8 Other nonspecific abnormal finding of lung field; F43.10 Post-traumatic stress disorder, unspecified; F41.9 Anxiety disorder, unspecified; J22 Unspecified acute lower respiratory infection | CPT/HCPCS: 99214 ==

== ENCOUNTER 2023-12-07 14:45 | Emergency (ER) | payer MEDICARE, OTHER, SELFPAY ==
[2023-12-07 14:46] VITALS: BP 146/85; PULSE 78; RESP 18; TEMP 36.7; O2SAT 96
--- NOTE | 2023-12-07 15:21 | CTR_ITS ---
PROCEDURE INFORMATION: Exam: CT Abdomen And Pelvis With Contrast Exam date and time: 12/07/2023 4:32 PM Age: 58 years old Clinical indication: Abdominal pain; Localized; Right lower quadrant (rlq); Prior surgery; Surgery date: 6+ months; Surgery type: Gb, hyster; Additional info: Progressive rlq pain-appendix TECHNIQUE: Imaging protocol: Computed tomography of the abdomen and pelvis with contrast. Radiation optimization: All CT scans at this facility use at least one of these dose optimization techniques: automated exposure control; mA and/or kV adjustment per patient size (includes targeted exams where dose is matched to clinical indication); or iterative reconstruction. Contrast material: OMNI 350; Contrast volume: 100 ml; Contrast route: INTRAVENOUS (IV); COMPARISON: CT kidney stone [id number] 03/02/2023 6:25 PM RADIATION DOSE METRICS: Total DLP (mGy-cm): 638.65 FINDINGS: Lungs: Dependent atelectasis. Left lower lung postsurgical change and scarring. Left lower lobe calcified granuloma. Liver: Normal. No mass. Gallbladder and bile ducts: Prior cholecystectomy. Mild intrahepatic biliary ductal dilatation. Mild extrahepatic biliary ductal dilatation with the common duct measuring 7 mm in diameter, previously 4 mm. Pancreas: Normal. No ductal dilation. Spleen: Normal. No splenomegaly. Adrenal glands: Normal. No mass. Kidneys and ureters: Normal. No hydronephrosis. Stomach and bowel: No obstruction. No mucosal thickening. Redemonstrated lower abdomen small bowel postsurgical change. Appendix: Normal. Intraperitoneal space: Unremarkable. No free air. No significant fluid collection. Vasculature: Moderate systemic atherosclerosis without abdominal aortic aneurysm. Lymph nodes: Unremarkable. No enlarged lymph nodes. Urinary bladder: Unremarkable as visualized. Reproductive: The uterus is surgically absent. Bones/joints: Unremarkable. No acute fracture. Soft tissues: Unremarkable. CT/CT abdomen pelvis w con* [id number] IMPRESSION: 1. Normal appendix. 2. Mild biliary ductal dilatation may be on the basis of prior cholecystectomy, but is increased from March 2023 and should be correlated for evidence of obstruction.
--- NOTE | 2023-12-07 15:22 | ED_ITS ---
Documented by User: Grover Mora DO 12/07/23 17:53 HPI - Abdominal Pain 2 General: Chief Complaint: Abdominal Pain Stated Complaint: abd pain Time Seen by Provider: 12/07/23 15:11 Source: patient Mode of arrival: ambulatory Limitations: no limitations History of Present Illness: This patient awoke this morning in her normal state of health albeit thought she might have a little bit of a menstrual cramp pain but it was around her umbilicus. She states that she ate breakfast and took her normal morning medicines but the pain has persisted and is now migrated to the right side of her abdomen. She is nauseated but has not had any vomiting. She has had a bowel movement which did not affect her pain. She states she is urinated which denies has not affected her pain. She states that certain movement and particular riding in the car made her pain worse. She had a prior hysterectomy as well as cholecystectomy. She denies any recent travel, recent antibiotic use etc. She has not any known fevers. She has had what was construed as a possible kidney stone in the past but this pain does not feel the same as that pain. No dysuria hematuria or frequency. MD elicited complaint: abdominal pain Migration to: RLQ Associated Symptoms: Reports nausea; Denies chills, diarrhea, dysuria, fever(s), hematochezia, hematemesis, melena and syncope Review of Systems 2 Const: Denies: fever(s) or chills Eyes: Denies: change in vision ENMT: Denies: throat pain or odynophagia Card: Denies: chest pain, palpitations, syncope or pre-syncope Resp: Denies: dyspnea, productive cough or non-productive cough GI: Reports: abdominal pain and nausea; Denies: hematemesis, diarrhea, hematochezia or melena : Denies: flank pain, difficulty voiding, dysuria or urinary frequency Musc: Denies: neck pain, back pain, extremity pain or extremity swelling Skin/Breast: Denies: rash Neuro: Denies: headache(s), numbness in extremities or weakness in extremities Psych: Denies: anxiety Endo: Denies: polyuria or polydipsia PFSH ED 2 PFSH: Medical History Arthralgia Fatigue SUSY positive Family History Sister Breast cancer Diabetes Hypercholesteremia Stroke Mother Breast cancer Grandfather Diabetes Grandmother Stroke Denies family history of Colon cancer Ovarian cancer Heart disease Hypertension Uterine cancer Thyroid disease Social History Smoking and tobacco/nicotine status: current every day tobacco/nicotine user cigarettes Packs smoked per day: 1 Years cigarettes smoked: 41 [ Other cigarette details: started at age 16] Quit status (tobacco/nicotine): has tried quititng Number of times tried to quit tobacco: 5 Second hand smoke exposure: Yes Alcohol intake: former Substance/Drug Use: former Do you think of yourself as: Straight/Heterosexual Physical Exam 2 Narrative: EXAM NARRATIVE: She is alert makes good eye contact appears slightly uncomfortable lying in the bed but is cooperative. Const: COMMON NORMALS: no acute distress, average body habitus, patient oriented x3 and alert GENERAL APPEARANCE: cooperative HENMT: COMMON NORMALS: normocephalic, Normal nasal mucous membranes and turbinates present, moist oral mucous membranes and oropharynx normal HEAD & SCALP: normocephalic NOSE: Normal nasal mucous membranes and turbinates present Eye: COMMON NORMALS: Equal, round and reactive pupils present, EOMs intact bilaterally and conjunctivae normal CONJUNCTIVA: Yes conjunctivae normal P UPIL: Yes Equal, round and reactive pupils present Neck/C-Spine: COMMON NORMALS: full ROM, no lymphadenopathy and supple Chest: COMMONS NORMALS: normal inspection of the chest Resp: COMMON NORMALS: normal respiratory effort, No retractions, No use of accessory muscles and clear to auscultation bilaterally AUSCULTATION: clear to auscultation bilaterally Cardio: COMMON NORMALS: regular rate, regular rhythm, No murmurs present (Cardio) and Peripheral pulses 2+ throughout RATE: regular rate RHYTHM: r egular rhythm PERIPHERAL PULSES: Peripheral pulses 2+ throughout GI: COMMON NORMALS: Normal to inspection, nondistended, normoactive bowel sounds present OTHER: Examination of the abdomen reveals to be soft with localized tenderness in the right lower quadrant with voluntary guarding. Some evidence of mild peritoneal irritation. No masses or other exam findings. : COMMON NORMALS: Yes no CVA tenderness BLADDER/KIDNEY EXAM: Yes no CVA tenderness Back/Pelvis: COMMON NORMALS: no CVA tenderness, thoracic and lumbar spine normal to inspection, no thoracic nor lumbar tenderness and thoraco-lumbar ROM normal Extremity: COMMON NORMALS: normal to inspection, full ROM, capillary refill normal and no calf tenderness Neuro: COMMON NORMALS: patient oriented x3, moves all extremities and no focal motor deficits SENSORIUM/ORIENTATION: Yes alert CRANIAL NERVES: Yes CN normal except as noted Psych: COMMON NORMALS: mental status grossly normal Skin: COMMON NORMALS: no rashes or lesions noted, no wounds and turgor normal GENERAL SKIN EXAM: no rashes or lesions noted and turgor normal Course 2 Reevaluation(s): Reevaluation #1: I shared current findings with the patient and the need to review a urinalysis which she just gave to the nursing staff. No evidence at this time to suggest appendicitis or other surgical abdominal condition. This case will be checked out to the overnight emergency department physician for final disposition. Time: 17:53 Vital Signs: Vital signs: Vital Signs Temperature 98.0 F 12/07/23 19:03 Pulse Rate 78 12/07/23 19:03 Respiratory Rate 18 12/07/23 19:03 Blood Pressure 146/85 12/07/23 19:03 Pulse Oximetry 96 12/07/23 19:03 Oxygen Delivery Me thod Room Air 12/07/23 14:46 MDM - Abdominal Pain Medical Decision Making Patient presents to the emergency department with abdominal pain and she describes as being periumbilical migrating to the right lower quadrant throughout the day. She has had some mild nausea but no other constitutional symptoms to include fevers chills. She had a prior cholecystectomy as well as a prior hysterectomy. No travel recent antibiotics etc. She has had some decreased appetite but again no vomiting or diarrhea. Clinical examination was remarkable for right lower quadrant tenderness without any other location of tenderness or peritoneal signs etc. noted on her exam. Workup ensued to include laboratories contrast and CT of the abdomen and pelvis etc. CT was reassuring and that there was no evidence of appendicitis or other intra-abdominal pathology other than notable bile duct enlargement. She has had a prior cholecystectomy. Unlikely to be clinically relevant as she has had no elevation in her transaminases alk phos bilirubin etc. Urinalysis is still pending at this time and we will make further disposition based upon urinalysis and repeat evaluation. Lab Data I reviewed the patient's lab results. 12/07/23 15:19 12/07/23 15:19 Labs/Radiology: Radiology Impressions Abdomen/Pelvis CT 12/07/23 15:21 IMPRESSION: 1. Normal appendix. 2. Mild biliary ductal dilatation may be on the basis of prior cholecystectomy, but is increased from March 2023 and should be correlated for evidence of obstruction. Laboratory Results WBC 7.45 10^3/uL (3.29-11.43) 12/07/23 15:19 RBC 4.83 10^6/uL (3.85-5.65) 12/07/23 15:19 Hgb 15.10 g/dL (11.27-16.99) 12/07/23 15:19 Hct 43.8 % (36-47) 12/07/23 15:19 MCV 90.7 fl (85-98) 12/07/23 15:19 MCH 31.3 pg (27-33) 12/07/23 15:19 MCHC 34.5 g/dL (30-55) 12/07/23 15:19 RDW 12.8 % (12.1-15.1) 12/07/23 15:19 Plt Count 191 10^3/cmm (157-399) 12/07/23 15:19 MPV 12.8 fL (7.4-10.4) H 12/07/23 15:19 Neut % (Auto) 54.0 % 12/07/23 15:19 Lymph % (Auto) 34.6 % 12/07/23 15:19 Lake % (Auto) 6.2 % 12/07/23 15:19 Eos % (Auto) 3.4 % 12/07/23 15:19 Baso % (Auto) 1.5 % 12/07/23 15:19 Neut # (Auto) 4.03 10^3/uL (1.8-7.7) 12/07/23 15:19 Lymph # (Auto) 2.6 10^3/uL (0.8-4.8) 12/07/23 15:19 Lake # (Auto) 0.5 10^3/uL (0.2-0.9) 12/07/23 15:19 Eos # (Auto) 0.3 10^3/uL (0.0-0.8) 12/07/23 15:19 Baso # (Auto) 0.1 10^3/uL (0.0-0.1) 12/07/23 15:19 Nucleated RBC % (auto) 0 % 12/07/23 15:19 Nucleated RBCs # 0.0 /100WBC 12/07/23 15:19 Sodium 139 mmol/L (136-145) 12/07/23 15:19 Potassium 3.5 mmol/L (3.5-5.1) 12/07/23 15:19 Chloride 101 mmol/L (98-107) 12/07/23 15:19 Carbon Dioxide 25 mmol/L (22-29) 12/07/23 15:19 Anion Gap 16.5 (5-19) 12/07/23 15:19 BUN 10 mg/dL (6-20) 12/07/23 15:19 Creatinine 0.7 mg/dL (0.5-0.9) 12/07/23 15:19 GFR Calculation 86.2 mL/min (90-130) L 12/07/23 15:19 Glucose 96 mg/dL (65-115) 12/07/23 15:19 Calculated Osmolality 287 mOsm/kg (285-295) 12/07/23 15:19 Calcium 9.1 mg/dL (8.5-10.5) 12/07/23 15:19 Total Bilirubin 0.2 mg/dL (0.15-1.2) 12/07/23 15:19 AST 14 U/L (0-32) 12/07/23 15:19 ALT 14 U/L (0-33) 12/07/23 15:19 Alkaline Phosphatase 98 U/L (35-105) 12/07/23 15:19 Total Protein 7.3 g/dL (6.6-8.7) 12/07/23 15:19 Albumin 4.1 g/dL (3.5-5.2) 12/07/23 15:19 Globulin 3.2 g/dL (1.3-4.6) 12/07/23 15:19 Lipase 30 U/L (13-60) 12/07/23 15:19 Urine Color Light yellow (Yellow) 12/07/23 17:46 Urine Appearance Clear (CLEAR) 12/07/23 17:46 Urine pH 5 (5-7) 12/07/23 17:46 Ur Specific [place] 1.005 (1.005-1.030) 12/07/23 17:46 Urine Protein Neg (Negative) 12/07/23 17:46 Urine Glucose (UA) Norm (Normal) 12/07/23 17:46 Urine Ketones Negative (Negative) 12/07/23 17:46 Urine Blood Neg (Negative) 12/07/23 17:46 Urine Nitrate Negative (Negative) 12/07/23 17:46 Urine Bilirubin Neg (Negative) 12/07/23 17:46 Urine Urobilinogen Norm mg/dL (Negative) 12/07/23 17:46 Ur Leukocyte Esterase 2+ (Negative) H 12/07/23 17:46 Urine RBC 0-4 /hpf (0-2) H 12/07/23 17:46 Urine WBC 5-10 /hpf (0-5) H 12/07/23 17:46 Ur Squamous Epith Cells 0-4 /hpf (0-5) H 12/07/23 17:46 Amorphous Sediment Not Reportable 12/07/23 17:46 Urine Bacteria Trace /hpf (NONE) 12/07/23 17:46 Discharge Plan Discharge Patient Disposition: Home Clinical Impression: Abdominal pain Qualifiers: Abdominal location: unspecified location Qualified Code(s): R10.9 - Unspecified abdominal pain Urinary tract infection Qualifiers: Urinary tract infection type: acute cystitis Hematuria presence: without hematuria Qualified Code(s): N30.00 - Acute cystitis without hematuria Condition: Stable Prescriptions: New Macrobid 100 mg capsule 100 mg PO BID 7 Days Qty: 14 0RF Rx Instructions: must administer with a meal/food hydrocodone-acetaminophen 5-325 mg tablet 1 tab PO Q6H PRN (Reason: pain) Qty: 14 0RF No Action levetiracetam 750 mg tablet extended release 24 hr 1,500 mg PO DAILY Qty: 180 3RF amitriptyline 100 mg tablet 100 mg PO DAILY Qty: 30 2RF buspirone 10 mg tablet 20 mg PO BID Qty: 120 2RF prazosin 1 mg capsule 3 mg PO BEDTIME@2100 Qty: 90 2RF sertraline 100 mg tablet 200 mg PO DAILY Qty: 60 2RF Aimovig Autoinjector 140 mg/mL auto-injector 140 mg SUBCUT .monthly Qty: 1 4RF hydroxyzine HCl 50 mg tablet 50 mg PO QID PRN (Reason: insomnia/anxiety) Qty: 120 2RF formoterol fumarate [Perforomist] 20 mcg/2 mL solution for nebulization 2 ml inhalation BID Qty: 120 5RF budesonide [Pulmicort] 0.5 mg/2 mL suspension for nebulization 0.5 mg inhalation BID Qty: 60 5RF lisinopril-hydrochlorothiazide 20-12.5 mg tablet 1 tab PO DAILY pantoprazole 40 mg tablet,delayed release (DR/EC) 40 mg PO BID Seroquel 100 mg tablet 100 mg PO QPM Discharge Orders: Discharge ED (Routine); Ordered 12/07/23 Ordered By: Matteo Corona Referrals: Marie Torres PA [Primary Care Provider] - 1 week Patient Instructions: Urinary Tract Infection in Women (ED), Abdominal Pain (ED), Opioid Safety, Pain Management Activity Restrictions/Additional Instructions: Please take all your medicine as directed. Please follow-up with your family practitioner within next 7 days for further evaluation and treatment. If your pain worsens or becomes intolerable please return to the ER. Coding Level of Care Code ED [employer] for [facility] Fwd Documented by User: Matteo Corona DO 12/07/23 23:15 HPI - Abdominal Pain 2 General: Chief Complaint: Abdominal Pain Stated Complaint: abd pain Time Seen by Provider: 12/07/23 15:11 [facility] ED 2 PFSH: Medical History Arthralgia Fatigue SUSY positive Family History Sister Breast cancer Diabetes Hypercholesteremia Stroke Mother Breast cancer Grandfather Diabetes Grandmother Stroke Denies family history of Colon cancer Ovarian cancer Heart disease Hypertension Uterine cancer Thyroid disease Social History Smoking and tobacco/nicotine status: current every day tobacco/nicotine user cigarettes Packs smoked per day: 1 Years cigarettes smoked: 41 [ Other cigarette details: started at age 16] Quit status (tobacco/nicotine): has tried quititng Number of times tried to quit tobacco: 5 Second hand smoke exposure: Yes Alcohol intake: former Substance/Drug Use: former Do you think of yourself as: Straight/Heterosexual Course 2 Vital Signs: Vital signs: Vital Signs Temperature 98.0 F 12/07/23 19:03 Pulse Rate 78 12/07/23 19:03 Respiratory Rate 18 12/07/23 19:03 Blood Pressure 146/85 12/07/23 19:03 Pulse Oximetry 96 12/07/23 19:03 Oxygen Delivery Me thod Room Air 12/07/23 14:46 MDM - Abdominal Pain Medical Decision Making Patient presents to the emergency department with abdominal pain and she describes as being periumbilical migrating to the right lower quadrant throughout the day. She has had some mild nausea but no other constitutional symptoms to include fevers chills. She had a prior cholecystectomy as well as a prior hysterectomy. No travel recent antibiotics etc. She has had some decreased appetite but again no vomiting or diarrhea. Clinical examination was remarkable for right lower quadrant tenderness without any other location of tenderness or peritoneal signs etc. noted on her exam. Workup ensued to include laboratories contrast and CT of the abdomen and pelvis etc. CT was reassuring and that there was no evidence of appendicitis or other intra-abdominal pathology other than notable bile duct enlargement. She has had a prior cholecystectomy. Unlikely to be clinically relevant as she has had no elevation in her transaminases alk phos bilirubin etc. Urinalysis is still pending at this time and we will make further disposition based upon urinalysis and repeat evaluation. Urinalysis come back with positive signs of infection. These results was discussed with the patient will be discharged home on antibiotics and pain medicine. Medical Records I reviewed the patient's medical records. Lab Data 12/07/23 15:19 12/07/23 15:19 Labs/Radiology: Radiology Impressions Abdomen/Pelvis CT 12/07/23 15:21 IMPRESSION: 1. Normal appendix. 2. Mild biliary ductal dilatation may be on the basis of prior cholecystectomy, but is increased from March 2023 and should be correlated for evidence of obstruction. Laboratory Results WBC 7.45 10^3/uL (3.29-11.43) 12/07/23 15:19 RBC 4.83 10^6/uL (3.85-5.65) 12/07/23 15:19 Hgb 15.10 g/dL (11.27-16.99) 12/07/23 15:19 Hct 43.8 % (36-47) 12/07/23 15:19 MCV 90.7 fl (85-98) 12/07/23 15:19 MCH 31.3 pg (27-33) 12/07/23 15:19 MCHC 34.5 g/dL (30-55) 12/07/23 15:19 RDW 12.8 % (12.1-15.1) 12/07/23 15:19 Plt Count 191 10^3/cmm (157-399) 12/07/23 15:19 MPV 12.8 fL (7.4-10.4) H 12/07/23 15:19 Neut % (Auto) 54.0 % 12/07/23 15:19 Lymph % (Auto) 34.6 % 12/07/23 15:19 Lake % (Auto) 6.2 % 12/07/23 15:19 Eos % (Auto) 3.4 % 12/07/23 15:19 Baso % (Auto) 1.5 % 12/07/23 15:19 Neut # (Auto) 4.03 10^3/uL (1.8-7.7) 12/07/23 15:19 Lymph # (Auto) 2.6 10^3/uL (0.8-4.8) 12/07/23 15:19 Lake # (Auto) 0.5 10^3/uL (0.2-0.9) 12/07/23 15:19 Eos # (Auto) 0.3 10^3/uL (0.0-0.8) 12/07/23 15:19 Baso # (Auto) 0.1 10^3/uL (0.0-0.1) 12/07/23 15:19 Nucleated RBC % (auto) 0 % 12/07/23 15:19 Nucleated RBCs # 0.0 /100WBC 12/07/23 15:19 Sodium 139 mmol/L (136-145) 12/07/23 15:19 Potassium 3.5 mmol/L (3.5-5.1) 12/07/23 15:19 Chloride 101 mmol/L (98-107) 12/07/23 15:19 Carbon Dioxide 25 mmol/L (22-29) 12/07/23 15:19 Anion Gap 16.5 (5-19) 12/07/23 15:19 BUN 10 mg/dL (6-20) 12/07/23 15:19 Creatinine 0.7 mg/dL (0.5-0.9) 12/07/23 15:19 GFR Calculation 86.2 mL/min (90-130) L 12/07/23 15:19 Glucose 96 mg/dL (65-115) 12/07/23 15:19 Calculated Osmolality 287 mOsm/kg (285-295) 12/07/23 15:19 Calcium 9.1 mg/dL (8.5-10.5) 12/07/23 15:19 Total Bilirubin 0.2 mg/dL (0.15-1.2) 12/07/23 15:19 AST 14 U/L (0-32) 12/07/23 15:19 ALT 14 U/L (0-33) 12/07/23 15:19 Alkaline Phosphatase 98 U/L (35-105) 12/07/23 15:19 Total Protein 7.3 g/dL (6.6-8.7) 12/07/23 15:19 Albumin 4.1 g/dL (3.5-5.2) 12/07/23 15:19 Globulin 3.2 g/dL (1.3-4.6) 12/07/23 15:19 Lipase 30 U/L (13-60) 12/07/23 15:19 Urine Color Light yellow (Yellow) 12/07/23 17:46 Urine Appearance Clear (CLEAR) 12/07/23 17:46 Urine pH 5 (5-7) 12/07/23 17:46 Ur Specific [place] 1.005 (1.005-1.030) 12/07/23 17:46 Urine Protein Neg (Negative) 12/07/23 17:46 Urine Glucose (UA) Norm (Normal) 12/07/23 17:46 Urine Ketones Negative (Negative) 12/07/23 17:46 Urine Blood Neg (Negative) 12/07/23 17:46 Urine Nitrate Negative (Negative) 12/07/23 17:46 Urine Bilirubin Neg (Negative) 12/07/23 17:46 Urine Urobilinogen Norm mg/dL (Negative) 12/07/23 17:46 Ur Leukocyte Esterase 2+ (Negative) H 12/07/23 17:46 Urine RBC 0-4 /hpf (0-2) H 12/07/23 17:46 Urine WBC 5-10 /hpf (0-5) H 12/07/23 17:46 Ur Squamous Epith Cells 0-4 /hpf (0-5) H 12/07/23 17:46 Amorphous Sediment Not Reportable 12/07/23 17:46 Urine Bacteria Trace /hpf (NONE) 12/07/23 17:46 All radiology interpretation(s) finalized by discharge Discharge Plan Discharge Patient Disposition: Home Clinical Impression: Abdominal pain Qualifiers: Abdominal location: unspecified location Qualified Code(s): R10.9 - Unspecified abdominal pain Urinary tract infection Qualifiers: Urinary tract infection type: acute cystitis Hematuria presence: without hematuria Qualified Code(s): N30.00 - Acute cystitis without hematuria Condition: Stable Prescriptions: New Macrobid 100 mg capsule 100 mg PO BID 7 Days Qty: 14 0RF Rx Instructions: must administer with a meal/food hydrocodone-acetaminophen 5-325 mg tablet 1 tab PO Q6H PRN (Reason: pain) Qty: 14 0RF No Action levetiracetam 750 mg tablet extended release 24 hr 1,500 mg PO DAILY Qty: 180 3RF amitriptyline 100 mg tablet 100 mg PO DAILY Qty: 30 2RF buspirone 10 mg tablet 20 mg PO BID Qty: 120 2RF prazosin 1 mg capsule 3 mg PO BEDTIME@2100 Qty: 90 2RF sertraline 100 mg tablet 200 mg PO DAILY Qty: 60 2RF Aimovig Autoinjector 140 mg/mL auto-injector 140 mg SUBCUT .monthly Qty: 1 4RF hydroxyzine HCl 50 mg tablet 50 mg PO QID PRN (Reason: insomnia/anxiety) Qty: 120 2RF formoterol fumarate [Perforomist] 20 mcg/2 mL solution for nebulization 2 ml inhalation BID Qty: 120 5RF budesonide [Pulmicort] 0.5 mg/2 mL suspension for nebulization 0.5 mg inhalation BID Qty: 60 5RF lisinopril-hydrochlorothiazide 20-12.5 mg tablet 1 tab PO DAILY pantoprazole 40 mg tablet,delayed release (DR/EC) 40 mg PO BID Seroquel 100 mg tablet 100 mg PO QPM Discharge Orders: Discharge ED (Routine); Ordered 12/07/23 Ordered By: Matteo Corona Referrals: Marie Torres PA [Primary Care Provider] - 1 week Patient Instructions: Urinary Tract Infection in Women (ED), Abdominal Pain (ED), Opioid Safety, Pain Management Activity Restrictions/Additional Instructions: Please take all your medicine as directed. Please follow-up with your family practitioner within next 7 days for further evaluation and treatment. If your pain worsens or becomes intolerable please return to the ER. Coding Level of Care Code ED [employer] for [place] [facility]anna
[2023-12-07 15:49] LABS: Basophils # 0.1 10^3/uL (0.0-0.1); Basophils % 1.5 %; Eosinophils # 0.3 10^3/uL (0.0-0.8); Eosinophils % 3.4 %; Hematocrit 43.8 % (36-47); Lymphocytes # 2.6 10^3/uL (0.8-4.8); Lymphocytes % 34.6 %; Mean Corpuscular HGB Conc 34.5 g/dL (30-55); Mean Corpuscular Hemoglobin 31.3 pg (27-33); Mean Corpuscular Volume 90.7 fl (85-98); Mean Platelet Volume 12.8 fL (7.4-10.4); Monocytes # 0.5 10^3/uL (0.2-0.9); Monocytes % 6.2 %; Neutrophils # 4.03 10^3/uL (1.8-7.7); Nucleated Red Blood Cells % 0 %; Platelet Count 191 10^3/cmm (157-399); Red Blood Count 4.83 10^6/uL (3.85-5.65); Red Cell Distribution Width 12.8 % (12.1-15.1); White Blood Count 7.45 10^3/uL (3.29-11.43)
[2023-12-07] MEDS: ondansetron 2 mg/ML SDV 2 mL 4 MG IVP ×2 (16:05→18:05)
[2023-12-07] MEDS: lactated ringers 1,000 ML 999 ML IV (16:05)
[2023-12-07] MEDS: morphine 4 mg/mL SDV 1 mL IVP (16:05)
[2023-12-07 16:12] LABS: Alanine Aminotransferase 14 U/L (0-33); Albumin Level 4.1 g/dL (3.5-5.2); Alkaline Phosphatase 98 U/L (35-105); Anion Gap 16.5 (5-19); Aspartate Amino Transferase 14 U/L (0-32); Blood Urea Nitrogen 10 mg/dL (6-20); Calcium 9.1 mg/dL (8.5-10.5); Carbon Dioxide 25 mmol/L (22-29); Chloride 101 mmol/L (98-107); Creatinine Clr Calc Pharmacy 83.9842; Globulin 3.2 g/dL (1.3-4.6); Glomerular Filtration Rate 86.2 mL/min (90-130); Glucose 96 mg/dL (65-115); Lipase 30 U/L (13-60); Osmolality Calculated 287 mOsm/kg (285-295); Potassium 3.5 mmol/L (3.5-5.1); Sodium 139 mmol/L (136-145); Total Bilirubin 0.2 mg/dL (0.15-1.2); Total Protein 7.3 g/dL (6.6-8.7)
[2023-12-07] MEDS: iohexol 350 mg/mL 500 mL Btl (per mL) IV (16:35)
[2023-12-07 18:14] LABS: Add Urine Culture? No; Add Urine Microscopic? YES; Bacteria Urine TRACE /hpf; Bilirubin Urine Neg (Negative); Blood Urine Neg (Negative); Glucose Urine UA Norm (Normal); Ketones Urine Negative (Negative); Leukocyte Esterase Urine 2+ (Negative); Nitrate Urine Negative (Negative); Protein Urine Neg (Negative); RBC Urine 0-4 /hpf (0-2); Specific Gravity, Urine 1.005 (1.005-1.030); Squamous Epithelial Cell Urine 0-4 /hpf (0-5); Urine Appearance Clear (CLEAR); Urine Color Light yellow (Yellow); Urobilinogen Urine Norm (Negative); pH Urine 5 (5-7)
[2023-12-07 19:03] VITALS: BP 146/85; PULSE 78; RESP 18; TEMP 36.7; O2SAT 96
== END 2023-12-07 19:05 | disposition home or self-care (01) ==
PROVIDERS: Emergency Medicine; Emergency Provider Emergency Medicine; PCP Physician Assistant
DX: N30.00 Acute cystitis without hematuria (principal); R10.9 Unspecified abdominal pain; F17.210 Nicotine dependence, cigarettes, uncomplicated
CPT/HCPCS: 36415; 74177; 80053; 81001; 83690; 85025; 96361; 96374; 96375; 96376; 99285; J2270; J2405; J7120; Q9967

== ENCOUNTER 2024-01-21 20:00 | Outpatient (CLI) | payer MEDICARE, OTHER, SELFPAY | END 2024-01-21 20:01 | disposition home or self-care (01) | LOC: SLEEP 01-22 04:39 | PROVIDERS: PCP Physician Assistant; Visit Provider Internal Medicine Pulmonary Disease | DX: G47.19 Other hypersomnia (principal); G47.36 Sleep related hypoventilation in conditions classified elsewhere | CPT/HCPCS: 95810 ==

== ENCOUNTER → 2024-02-04 10:51 | Outpatient (BNVA) | payer MEDICARE, OTHER, SELFPAY | PROVIDERS: PCP Physician Assistant; Visit Provider Internal Medicine Pulmonary Disease | DX: J44.1 Chronic obstructive pulmonary disease with (acute) exacerbation (principal); M35.1 Other overlap syndromes; R76.8 Other specified abnormal immunological findings in serum; R91.8 Other nonspecific abnormal finding of lung field; F43.10 Post-traumatic stress disorder, unspecified; F41.9 Anxiety disorder, unspecified; G47.34 Idiopathic sleep related nonobstructive alveolar hypoventilation; F17.210 Nicotine dependence, cigarettes, uncomplicated | CPT/HCPCS: 99214 ==

== ENCOUNTER → 2024-06-04 14:10 | Outpatient (BNVA) | payer MEDICARE, OTHER, SELFPAY | PROVIDERS: PCP Physician Assistant; Visit Provider Psychiatry & Neurology Neurology | DX: G40.219 Localization-related (focal) (partial) symptomatic epilepsy and epileptic syndromes with complex partial seizures, intractable, without status epilepticus (principal); G43.011 Migraine without aura, intractable, with status migrainosus; E55.9 Vitamin D deficiency, unspecified; F17.200 Nicotine dependence, unspecified, uncomplicated | CPT/HCPCS: 99212; 99213 ==

== ENCOUNTER 2024-06-11 13:56 | Oncology outpatient (recurring) (ONCR) | payer MEDICARE, OTHER, SELFPAY ==
[2024-06-11 15:18] VITALS: BP 108/67; PULSE 71; RESP 16; TEMP 35.9; O2SAT 98
[2024-06-11] MEDS: sodium chloride 0.9% 250 ML 75 ML IV (15:18)
[2024-06-11] MEDS: eptinezumab-jjmr 100 MG in sodium chloride 0.9% (100 ml) 100 ML 202 MG IV (15:21)
[2024-06-11 16:10] VITALS: BP 107/67; PULSE 72; RESP 16; TEMP 36.9; O2SAT 98
== END 2024-06-30 23:59 | disposition home or self-care (01) ==
PROVIDERS: PCP Physician Assistant; Visit Provider Psychiatry & Neurology Neurology
DX: Z79.899 Other long term (current) drug therapy (principal); G43.011 Migraine without aura, intractable, with status migrainosus
CPT/HCPCS: 96413; A4222; J3032; J7050

== ENCOUNTER → 2024-06-19 08:39 | Outpatient (BNVA) | payer MEDICARE, OTHER, SELFPAY | PROVIDERS: PCP Physician Assistant; Visit Provider Psychiatry & Neurology Neurology | DX: G40.219 Localization-related (focal) (partial) symptomatic epilepsy and epileptic syndromes with complex partial seizures, intractable, without status epilepticus (principal); G40.209 Localization-related (focal) (partial) symptomatic epilepsy and epileptic syndromes with complex partial seizures, not intractable, without status epilepticus; G43.711 Chronic migraine without aura, intractable, with status migrainosus | CPT/HCPCS: 95819 ==

== ENCOUNTER 2024-07-22 09:14 | Outpatient (CLI) | payer MEDICARE, OTHER, SELFPAY ==
--- NOTE | 2024-07-22 09:18 | MR_ITS ---
WS: [id number] MRI RIGHT KNEE HISTORY: INTERNAL DERANGEMENT OF RIGHT KNEE COMPARISON: 04/22/2021 Anterior cruciate ligament: Intact. Posterior cruciate ligament: Intact. Medial collateral ligament: Intact. Posterior lateral corner structures: Intact. Medial menisci: Improved signal and amount in the posterior horn of the medial meniscus. There is nedra y slight blunting of the free edge. No tear identified. Anterior horn is normal. Lateral meniscus: Intact. Normal signal, size and shape. Extensor mechanism: Distal quadriceps tendon and patellar tendons are intact. Fluid and soft tissue: Very small suprapatellar joint effusion. No Ross's cyst. Osseous and articular structures: Patellofemoral compartment: Moderate thinning of the cartilage at the patellar eminence and over the medial patellar facet. At least 50% thinning of the cartilage, similar to the prior study. No marrow edema. Medial compartment: Mild narrowing of the medial compartment. Diffuse thinning and irregularity along the cartilage surface of the weightbearing surface femoral condyle and tibial plateau. Similar to th e prior exam. Lateral compartment: No significant chondromalacia. No joint space narrowing. MR/MR knee RT wo con* [id number] IMPRESSION: 1. Improved signal within the posterior horn of the medial meniscus since 2020 . 2. Very minimal blunting free edge posterior horn medial meniscus. This corres ponds to mild joint space narrowing and surface irregularity of the cartilage. No tear is identified within the meniscus. 3. Mild medial compartment chondromalacia and joint space narrowing. 4. Focal chondromalacia involving the patellar eminence as seen on the prior e xamination. No progression. No marrow edema.
== END 2024-07-22 09:15 | disposition home or self-care (01) ==
LOC: RAD 09:15
PROVIDERS: PCP Physician Assistant; Visit Provider Orthopaedic Surgery
DX: M17.10 Unilateral primary osteoarthritis, unspecified knee (principal); M22.41 Chondromalacia patellae, right knee
CPT/HCPCS: 73721

== ENCOUNTER 2024-09-03 13:36 | Oncology outpatient (recurring) (ONCR) | payer MEDICARE, OTHER, SELFPAY ==
[2024-09-03 14:24] VITALS: BP 101/68; PULSE 72; RESP 16; TEMP 36.9; O2SAT 96
[2024-09-03] MEDS: eptinezumab-jjmr 100 MG in sodium chloride 0.9% (100 ml) 100 ML 202 MG IV (15:12)
[2024-09-03 16:44] VITALS: BP 110/68; PULSE 78; RESP 16; TEMP 36.9; O2SAT 96
== END 2024-09-30 23:59 | disposition home or self-care (01) ==
PROVIDERS: PCP Physician Assistant; Visit Provider Psychiatry & Neurology Neurology
DX: G43.011 Migraine without aura, intractable, with status migrainosus (principal); Z79.899 Other long term (current) drug therapy
CPT/HCPCS: 96365; A4222; J3032

== ENCOUNTER 2024-11-26 14:07 | Oncology outpatient (recurring) (ONCR) | payer MEDICARE, OTHER, SELFPAY ==
[2024-11-26] MEDS: eptinezumab-jjmr 100 MG in sodium chloride 0.9% (100 ml) 100 ML 202 MG IV (14:46)
[2024-11-26 15:30] VITALS: BP 103/62; PULSE 80; RESP 17; TEMP 36.2; O2SAT 97
[2024-11-26 15:40] VITALS: BP 103/62; PULSE 80; RESP 16; TEMP 36.6; O2SAT 94
== END 2024-11-28 23:59 | disposition home or self-care (01) ==
PROVIDERS: PCP Physician Assistant; Visit Provider Psychiatry & Neurology Neurology
DX: G43.011 Migraine without aura, intractable, with status migrainosus (principal); Z79.899 Other long term (current) drug therapy
CPT/HCPCS: 96413; A4222; J3032

== ENCOUNTER 2024-12-05 10:13 | Outpatient (CLI) | payer MEDICARE, OTHER, SELFPAY ==
--- NOTE | 2024-12-05 10:21 | MM_ITS ---
WS: [id number] BILATERAL SCREENING DIGITAL TOMOSYNTHESIS MAMMOGRAM WITH CAD HISTORY: SCREENING COMPARISON: 06/22/2020, 08/15/2023 Bilateral CC and MLO views with tomosynthesis and synthetic mammography submitted. Computer aided detection analyzed. Breast composition: The breasts are heterogeneously dense, which may obscure small masses. No suspicious masses, microcalcifications or architectural distortion. Scattered asymmetries within each breast. More focal asymmetry in the superior RIGHT breast at a middle depth is stable. MM/MM [facility] tomosynthesis [id number] IMPRESSION: BI-RADS: 2 - Benign FOLLOW UP: 1 Year Follow-up
== END 2024-12-05 10:14 | disposition home or self-care (01) ==
LOC: RAD 10:17
PROVIDERS: PCP Physician Assistant; Visit Provider Physician Assistant
DX: Z12.31 Encounter for screening mammogram for malignant neoplasm of breast (principal); R92.333 Mammographic heterogeneous density, bilateral breasts; N64.89 Other specified disorders of breast
CPT/HCPCS: 77063; 77067

== ENCOUNTER 2024-12-07 10:13 | Emergency (ER) | payer MEDICARE, OTHER, SELFPAY ==
[2024-12-07 10:20] VITALS: BP 142/56; PULSE 72; RESP 14; TEMP 36.6; O2SAT 98; BMI 29.2
--- NOTE | 2024-12-07 10:37 | USR_ITS ---
PROCEDURE INFORMATION: Exam: US Duplex Right Upper Extremity Arteries Exam date and time: 12/07/2024 11:02 AM Age: 59 years old Clinical indication: Pain; Arm, lower; Prior surgery; Surgery date: 3-7 days post-operative; Surgery type: Patient had a heart cath right radial on Sunday12/01/2024; Additional info: Right arm pain and swelling S/P cardiac cath right radial TECHNIQUE: Imaging protocol: Right Real-time ultrasound scan of the arteries of the right upper extremity with 2-D dhillon scale, color Doppler flow and spectral waveform analysis. COMPARISON: CT lung screening [id number] 04/24/2023 2:23 PM FINDINGS: Right subclavian artery: No occlusion or significant stenosis. Normal waveform. Right axillary artery: No occlusion or significant stenosis. Normal waveform. Right brachial artery: No occlusion or significant stenosis. Normal waveform. Right radial artery: There is no significant flow within the right radial artery on color Doppler with minimal detectable waveforms on duplex imaging. Heterogeneous material is seen within the right radial artery. Right ulnar artery: No occlusion or significant stenosis. Normal waveform. Peak systolic velocities measure 65-75 cm/[place] US/[place] [id number] IMPRESSION: Thrombosis of the right radial artery. There is questionable trace residual flow within the right radial artery versus artifact.
--- NOTE | 2024-12-07 10:56 | PC.PHAR ---
Pt presented her medication list via her phone. Pt has Ibuprofen 800mg po tid-unable to find an order at any local pharmacies. Not added to med list.
[2024-12-07 11:33] LABS: Basophils # 0.1 10^3/uL (0.0-0.1); Basophils % 1.4 %; Eosinophils # 0.1 10^3/uL (0.0-0.8); Eosinophils % 1.7 %; Hematocrit 39.2 % (36-47); Lymphocytes # 1.9 10^3/uL (0.8-4.8); Lymphocytes % 32.2 %; Mean Corpuscular HGB Conc 33.7 g/dL (30-55); Mean Corpuscular Hemoglobin 30.3 pg (27-33); Mean Corpuscular Volume 89.9 fl (85-98); Mean Platelet Volume 12.2 fL (7.4-10.4); Monocytes # 0.5 10^3/uL (0.2-0.9); Monocytes % 8.7 %; Neutrophils # 3.21 10^3/uL (1.8-7.7); Neutrophils % 55.7 %; Nucleated Red Blood Cells % 0 %; Platelet Count 182 10^3/cmm (157-399); Red Blood Count 4.36 10^6/uL (3.85-5.65); Red Cell Distribution Width 12.1 % (12.1-15.1); White Blood Count 5.77 10^3/uL (3.29-11.43)
[2024-12-07 11:47] LABS: D Dimer <= 0.27 ug/mLFEU (0-0.59)
[2024-12-07 11:52] LABS: Anion Gap 15.3 (5-19); Blood Urea Nitrogen 12 mg/dL (6-20); Calcium 9.6 mg/dL (8.5-10.5); Carbon Dioxide 27 mmol/L (22-29); Chloride 99 mmol/L (98-107); Glomerular Filtration Rate 73.7 mL/min (90-130); Glucose 99 mg/dL (65-115); Osmolality Calculated 286 mOsm/kg (285-295); Potassium 3.3 mmol/L (3.5-5.1); Sodium 138 mmol/L (136-145)
[2024-12-07] MEDS: ondansetron 2 mg/ML SDV 2 mL 4 MG IVP (12:08)
[2024-12-07] MEDS: ketorolac 30 mg/mL INJ IVP (12:10)
[2024-12-07 12:13] VITALS: RESP 16
[2024-12-07] MEDS: morphine 4 mg/mL SDV 1 mL 2 MG IV (12:13)
[2024-12-07 12:26] VITALS: BP 127/88; PULSE 59; O2SAT 94
[2024-12-07 13:00] VITALS: BP 154/90; PULSE 45; RESP 19; O2SAT 95
--- NOTE | 2024-12-07 13:05 | W.ED.EXTPRO ---
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 Patient is having pain from the right wrist up to the right shoulder. Patient states she had a cardiac cath done last Sunday with the right radial approach by Dr. Rose at [facility]. Patient started having pain yesterday. No fever. Related Data Home Medications ?Medication ?Instructions ?Recorded ?Confirmed lisinopril 20 1 tab PO DAILY 12/07/23 12/07/24 mg-hydrochlorothiazide 12.5 mg tablet pantoprazole 40 mg tablet,delayed 40 mg PO BID 12/07/23 12/07/24 release budesonide 0.5 mg/2 mL suspension 0.5 mg inhalation BID PRN 12/07/24 12/07/24 for nebulization (Pulmicort) Shortness Of Breath nitroglycerin 0.4 mg sublingual See Rx Instructions .Route .COMPLEX 12/07/24 12/07/24 tablet rosuvastatin 10 mg tablet 10 mg PO BEDTIME 12/07/24 12/07/24 Previous Rx's ?Medication ?Instructions ?Recorded buspirone 10 mg tablet 20 mg (2 x 10 mg) PO BID #120 tabs 10/23/22 prazosin 1 mg capsule 3 mg (3 x 1 mg) PO BEDTIME@2100 10/23/22 #90 caps formoterol fumarate 20 mcg/2 mL 2 ml inhalation BID #120 mL 04/10/23 solution for nebulization (Perforomist) cholecalciferol (vitamin D3) 1,250 50,000 unit PO .weekly #14 caps 06/04/24 mcg (50,000 unit) capsule levetiracetam 750 mg 1,500 mg (2 x 750 mg) PO DAILY 06/04/24 tablet,extended release 24 hr #180 tabs clopidogrel 75 mg tablet (Plavix) 75 mg PO DAILY #30 tabs 12/07/24 hydrocodone 5 mg-acetaminophen 325 1 tab PO Q4H PRN pain #30 tabs 12/07/24 mg tablet Allergies Allergy/AdvReac Type Severity Reaction Status Date / Time Penicillins Allergy Severe ALGY-Anaphy Verified 06/19/24 09:16 laxis ciprofloxacin (From Cipro) Allergy Unknown Unknown Verified 06/19/24 09:16 Sulfa (Sulfonamide Allergy Unknown Unknown Verified 06/19/24 09:16 Antibiotics) topiramate (From Topamax) Allergy Unknown Unknown Verified 06/19/24 09:16 Review of Systems General: Reports: 10 or more systems reviewed and unremarkable except in HPI and below Musc: Reports: extremity pain (Right upper extremity pain) PFSH ED PFSH: Medical History (Updated 12/07/24 @ 13:01 by Naeem Silvestre MD) Seizures Arthralgia Fatigue SUSY positive Family History Sister Breast cancer Diabetes Hypercholesteremia Stroke Mother Breast cancer Grandfather Diabetes Grandmother Stroke Denies family history of Colon cancer Ovarian cancer Heart disease Hypertension Uterine cancer Thyroid disease Social History Smoking and tobacco/nicotine status: current every day tobacco/nicotine user (1-2 cigarettes/ day) cigarettes Packs smoked per day: 1 Years cigarettes smoked: 41 [ Other cigarette details: started at age 16] Quit status (tobacco/nicotine): has tried quititng Number of times tried to quit tobacco: 5 Second hand smoke exposure: Yes Alcohol intake: former Substance/Drug Use: former Do you think of yourself as: Straight/Heterosexual Physical Exam Const: COMMON NORMALS: no acute distress, patient oriented x3 and no limitations GENERAL APPEARANCE: cooperative and comfortable HENMT: COMMON NORMALS: normocephalic, atraumatic, Normal nasal mucous membranes and turbinates present, moist oral mucous membranes and oropharynx normal HEAD & SCALP: normal to inspection, normocephalic and atraumatic FACE & SINUS: normal facial exam NOSE: Normal nasal mucous membranes and turbinates present Eye: COMMON NORMALS: Equal, round and reactive pupils present, EOMs intact bilaterally and conjunctivae normal GENERAL EYE: appearance normal, both eyes and all related structures CONJUNCTIVA: Yes conjunctivae normal PUPIL: Yes Equal, round and reactive pupils present Neck/C-Spine: COMMON NORMALS: supple and no JVD Chest: COMMONS NORMALS: normal inspection of the chest Resp: COMMON NORMALS: normal respiratory effort and clear to auscultation bilaterally AUSCULTATION: clear to auscultation bilaterally Cardio: COMMON NORMALS: no JVD, regular rate, regular rhythm, No gallops present (Cardio), No murmurs present (Cardio) and No rub (Cardio) RATE: regular rate RHYTHM: regular rhythm PERIPHERAL PULSES: radial pulses not present (Right radial pulse nonpalpable.) OTHER: The right hand was pink and warm with brisk capillary refill throughout. GI: COMMON NORMALS: Normal to inspection, nondistended, normoactive bowel sounds present, Soft to palpation and non-tender AUSCULTATION: Yes normoactive bowel sounds PALPATION: Yes Soft to palpation : COMMON NORMALS: Yes no CVA tenderness BLADDER/KIDNEY EXAM: Yes no CVA tenderness Back/Pelvis: COMMON NORMALS: no CVA tenderness and thoracic and lumbar spine normal to inspection Extremity: COMMON NORMALS: normal to inspection Neuro: COMMON NORMALS: patient oriented x3 and CN's II-XII intact bilaterally Psych: COMMON NORMALS: mental status grossly normal, Normal thought process present and cooperative THOUGHT PROCESS: Normal thought process present Skin: COMMON NORMALS: no rashes or lesions noted, turgor normal and no jaundice GENERAL SKIN EXAM: no rashes or lesions noted and turgor normal Course Vital Signs: Vital signs: Vital Signs Temperature 97.9 F 12/07/24 10:20 Pulse Rate 72 12/07/24 10:20 Respiratory Rate 16 12/07/24 12:13 Blood Pressure 142/56 12/07/24 10:20 Pulse Oximetry 98 12/07/24 10:20 Oxygen Delivery Me thod Room Air 12/07/24 10:20 MDM - Extremity (Nontraumatic) Medical Decision Making CBC and BMP were normal. D-dimer was less than 0.27. Patient was given Toradol and morphine for her pain. An arterial duplex scan of the right upper extremity was read by the radiologist. There is no flow due to thrombosis in the right radial artery. Good flow through the right ulnar artery. I contacted [facility] and [place] and discussed this case with Dr. Hi, vascular surgeon there. He does not recommend any procedures at this time. He recommended the patient take 81 mg of aspirin per day and place her on 75 mg of Plavix per day. He would like to see her in the clinic this week recommended she call tomorrow to schedule the appointment. I discussed all of this with the patient. She understands. Patient did get somewhat anxious later during the ER stay and we did give her 0.5 mg of Ativan IV. Patient was discharged in stable condition. Lab Data 12/07/24 11:27 12/07/24 11:27 Radiology Impressions Duplex Scan Upper Extremity Artery 12/07/24 10:37 IMPRESSION: Thrombosis of the right radial artery. There is questionable trace residual flow within the right radial artery versus artifact. ADDENDUM: 12/07/24 1154 COMMENT: THIS REPORT CONTAINS FINDINGS THAT MAY BE CRITICAL TO PATIENT CARE. The exam findings were verbally communicated by me to EFLIPE SILVESTRE via telephone conference at 11:52 AM CDT on 12/07/2024. The findings were acknowledged and understood. Laboratory Results WBC 5.77 10^3/uL (3.29-11.43) 12/07/24 11:27 RBC 4.36 10^6/uL (3.85-5.65) 12/07/24 11:27 Hgb 13.20 g/dL (11.27-16.99) 12/07/24 11:27 Hct 39.2 % (36-47) 12/07/24 11:27 MCV 89.9 fl (85-98) 12/07/24 11:27 MCH 30.3 pg (27-33) 12/07/24 11:27 MCHC 33.7 g/dL (30-55) 12/07/24 11:27 RDW 12.1 % (12.1-15.1) 12/07/24 11:27 Plt Count 182 10^3/cmm (157-399) 12/07/24 11:27 MPV 12.2 fL (7.4-10.4) H 12/07/24 11:27 Neut % (Auto) 55.7 % 12/07/24 11:27 Lymph % (Auto) 32.2 % 12/07/24 11:27 [place] % (Auto) 8.7 % 12/07/24 11:27 Eos % (Auto) 1.7 % 12/07/24 11:27 Baso % (Auto) 1.4 % 12/07/24 11:27 Neut # (Auto) 3.21 10^3/uL (1.8-7.7) 12/07/24 11:27 Lymph # (Auto) 1.9 10^3/uL (0.8-4.8) 12/07/24 11:27 [place] # (Auto) 0.5 10^3/uL (0.2-0.9) 12/07/24 11:27 Eos # (Auto) 0.1 10^3/uL (0.0-0.8) 12/07/24 11:27 Baso # (Auto) 0.1 10^3/uL (0.0-0.1) 12/07/24 11:27 Nucleated RBC % (auto) 0 % 12/07/24 11: Nucleated RBCs # 0.0 /100WBC 12/07/24 11:27 D-Dimer <= 0.27 ug/mLFEU (0-0.59) 12/07/24 11:27 Sodium 138 mmol/L (136-145) 12/07/24 11:27 Potassium 3.3 mmol/L (3.5-5.1) L 12/07/24 11:27 Chloride 99 mmol/L (98-107) 12/07/24 11:27 Carbon Dioxide 27 mmol/L (22-29) 12/07/24 11:27 Anion Gap 15.3 (5-19) 12/07/24 11:27 BUN 12 mg/dL (6-20) 12/07/24 11:27 Creatinine 0.8 mg/dL (0.5-0.9) 12/07/24 11:27 GFR Calculation 73.7 mL/min (90-130) L 12/07/24 11:27 Glucose 99 mg/dL (65-115) 12/07/24 11:27 Calculated Osmolality 286 mOsm/kg (285-295) 12/07/24 11:27 Calcium 9.6 mg/dL (8.5-10.5) 12/07/24 11:27 All radiology interpretation(s) finalized by discharge Discharge Plan Discharge Patient Disposition: Home Clinical Impression: Radial artery thrombosis, right Condition: Stable Prescriptions: New clopidogrel [Plavix] 75 mg tablet 75 mg PO DAILY Qty: 30 0RF hydrocodone-acetaminophen 5-325 mg tablet 1 tab PO Q4H PRN (Reason: pain) Qty: 30 0RF No Action buspirone 10 mg tablet 20 mg PO BID Qty: 120 2RF prazosin 1 mg capsule 3 mg PO BEDTIME@2100 Qty: 90 2RF formoterol fumarate [Perforomist] 20 mcg/2 mL solution for nebulization 2 ml inhalation BID Qty: 120 5RF levetiracetam 750 mg tablet extended release 24 hr 1,500 mg PO DAILY Qty: 180 3RF cholecalciferol (vitamin D3) 1,250 mcg (50,000 unit) capsule 50,000 unit PO .weekly Qty: 14 4RF lisinopril-hydrochlorothiazide 20-12.5 mg tablet 1 tab PO DAILY pantoprazole 40 mg tablet,delayed release (DR/EC) 40 mg PO BID nitroglycerin 0.4 mg tablet, sublingual See Rx Instructions .ROUTE .COMPLEX Rx Instructions: Dissolve 1 tablet under tongue daily as needed for chest pain. rosuvastatin 10 mg tablet 10 mg PO BEDTIME budesonide [Pulmicort] 0.5 mg/2 mL suspension for nebulization 0.5 mg inhalation BID PRN (Reason: Shortness Of Breath) Discharge Orders: Discharge ED (Routine); Ordered 12/07/24 Ordered By: Naeem Silvestre Referrals: Marie Torres PA [Primary Care Provider] - Patient Instructions: Opioid Safety, Pain Management Activity Restrictions/Additional Instructions: Continue taking 81 mg of aspirin per day. Take 75 mg of Plavix per day as prescribed. Take the hydrocodone as needed for pain. Contact the vascular clinic in [place] with [facility] at [phone] to schedule an appointment for further evaluation this week. Print Language: Azeri Coding Level of Care Code ED Hand Embroiderer for Salvador Hanna
[2024-12-07] MEDS: clopidogrel 75 mg Tablet PO (13:24)
[2024-12-07] MEDS: LORazepam 2 mg/mL INJ 1 mL 0.5 MG IVP (13:25)
[2024-12-07 13:30] VITALS: BP 162/90; PULSE 53; O2SAT 98
== END 2024-12-07 13:30 | disposition home or self-care (01) ==
PROVIDERS: Emergency Provider Emergency Medicine; PCP Physician Assistant
DX: I74.2 Embolism and thrombosis of arteries of the upper extremities (principal); F17.210 Nicotine dependence, cigarettes, uncomplicated
CPT/HCPCS: 36415; 80048; 85025; 85378; 93931; 96374; 96375; 99285; J1885; J2060; J2270; J2405

== ENCOUNTER 2024-12-12 07:48 | Outpatient (CLI) | payer MEDICARE, OTHER, SELFPAY ==
--- NOTE | 2024-12-12 07:51 | CT_ITS ---
WS: [id number] LDCT LUNG CANCER SCREENING HISTORY: HX OF TOBACCO USE TECHNIQUE: Axial imaging performed from the apices to 1 cm below the costophrenic angles. Coronal and sagittal reformats are submitted with axial MIP series. All CT scans at [facility] use at least one of these dose optimization techniques: automated exposure control; mA and/or kV adjustment per patient size (includes targeted exams where dose is matched to clinical indication); or iterative reconstruction. DLP: 74.36 mGy.cm DIvol: Mean CTDIvol: 1.30 (mGy) COMPARISON: 04/24/2023, 05/25/2021 Diagnostic quality: Satisfactory Lungs: Numerous bilateral pulmonary nodules. Majority of these nodules are micronodules. There are additional calcified granulomatous. No new mass or nodule. None of these nodules are increasing in size. Mild pleural plaquing and calcification at the LEFT lower thorax. Heart: Normal size heart with no pericardial effusion.. Other findings: No pathologically enlarged nodes identified. Small hiatal hernia. No adrenal mass. Prior cholecystectomy. CT/CT lung screening [id number] IMPRESSION: LUNG-RADS: 2-Benign Appearance or Behavior FOLLOW UP: 12 Month: Continue annual screening with LDCT OTHER FINDINGS (S MODIFIER): None.
== END 2024-12-12 07:49 | disposition home or self-care (01) ==
PROVIDERS: PCP Physician Assistant; Visit Provider Physician Assistant
DX: Z12.2 Encounter for screening for malignant neoplasm of respiratory organs (principal); Z87.891 Personal history of nicotine dependence; R91.8 Other nonspecific abnormal finding of lung field; J84.10 Pulmonary fibrosis, unspecified; J92.9 Pleural plaque without asbestos; K44.9 Diaphragmatic hernia without obstruction or gangrene; Z90.49 Acquired absence of other specified parts of digestive tract
CPT/HCPCS: 71271

== ENCOUNTER 2025-02-18 09:42 | Oncology outpatient (recurring) (ONCR) | payer MEDICARE, OTHER, SELFPAY ==
[2025-02-18] MEDS: eptinezumab-jjmr 100 MG in sodium chloride 0.9% (100 ml) 100 ML 202 MG IV (11:01)
[2025-02-18 12:00] VITALS: PULSE 64; RESP 17; TEMP 36.1; O2SAT 98
== END 2025-02-28 23:59 | disposition home or self-care (01) ==
PROVIDERS: PCP Physician Assistant; Visit Provider Psychiatry & Neurology Neurology
DX: G43.011 Migraine without aura, intractable, with status migrainosus (principal); Z79.899 Other long term (current) drug therapy
CPT/HCPCS: 96413; J3032

== ENCOUNTER 2025-05-13 10:11 | Oncology outpatient (recurring) (ONCR) | payer MEDICARE, OTHER, SELFPAY ==
[2025-05-13 10:49] VITALS: BP 98/62; PULSE 85; RESP 16; TEMP 35.9; O2SAT 95
[2025-05-13] MEDS: eptinezumab-jjmr 100 MG in sodium chloride 0.9% (100 ml) 100 ML 202 MG IV (11:15)
[2025-05-13 11:49] VITALS: BP 103/66; PULSE 71; RESP 17; TEMP 36.9; O2SAT 97
== END 2025-05-31 23:59 | disposition home or self-care (01) ==
PROVIDERS: PCP Physician Assistant; Visit Provider Psychiatry & Neurology Neurology
DX: G43.011 Migraine without aura, intractable, with status migrainosus (principal); Z79.899 Other long term (current) drug therapy
CPT/HCPCS: 96413; A4222; J3032

== ENCOUNTER 2025-08-19 09:39 | Oncology outpatient (recurring) (ONCR) | payer MEDICARE, OTHER, SELFPAY ==
[2025-08-19 10:28] VITALS: BP 95/63; PULSE 83; RESP 18; TEMP 36.4; O2SAT 95
[2025-08-19] MEDS: eptinezumab-jjmr 100 MG in sodium chloride 0.9% (100 ml) 100 ML 202 MG IV (10:46)
[2025-08-19 11:33] VITALS: BP 96/74; PULSE 84; RESP 18; TEMP 36.4; O2SAT 96
== END 2025-08-30 23:59 | disposition home or self-care (01) ==
PROVIDERS: PCP Physician Assistant; Visit Provider Psychiatry & Neurology Neurology
DX: G43.011 Migraine without aura, intractable, with status migrainosus (principal); Z79.899 Other long term (current) drug therapy
CPT/HCPCS: 96365; J3032